=== PATIENT | female | born 1960 | race American Indian/Alaskan Native ===

== ENCOUNTER 2017-09-14 20:55 | Emergency (ER) | payer MEDICARE ==
[2017-09-14 22:06] LABS: Basophils % (Auto) 0.3 % (0.0-1.8); Eosinophils % (Auto) 0.6 % (0.0-4.3); Hematocrit 41.2 % (30.3-42.9); Hemoglobin 13.6 gm/dl (10.1-14.3); Lymphocytes # (Auto) 1.2 K/mm3 (1.2-5.4); Lymphocytes % (Auto) 21.4 % (13.4-35.0); Mean Corpuscular HGB Conc 33 % (30-34); Mean Corpuscular Hemoglobin 29 pg (28-32); Mean Corpuscular Volume 88 fl (79-97); Monocytes # (Auto) 0.5 K/mm3 (0.0-0.8); Monocytes % (Auto) 8.6 % (0.0-7.3); Platelet Count 170 K/mm3 (140-440); Red Blood Count 4.71 M/mm3 (3.65-5.03); Red Cell Distribution Width 13.9 % (13.2-15.2)
[2017-09-14 22:23] LABS: Alanine Aminotransferase 19 units/L (7-56); Albumin 3.9 g/dL (3.9-5); BUN/Creatinine Ratio 27; Blood Urea Nitrogen 19 mg/dL (7-17); Calcium 9.2 mg/dL (8.4-10.2); Hemolysis Index 5; Lipase 13 units/L (13-60)
[2017-09-14 22:24] LABS: Bacteria,Urine 1+ /HPF (Negative); Bilirubin,Urine NEG (Negative); Blood,Urine NEG (Negative); Color,Urine Yellow (Yellow); Mucus,Urine 3+ /HPF; Urobilinogen,Urine < 2.0 mg/dL (<2.0)
[2017-09-14] MEDS ORDERED: NACL 0.9% 1000 ML 1,000 ML IV ONE (22:34)
[2017-09-14] MEDS ORDERED: ZOFRAN IV ONE (22:34)
[2017-09-14] MEDS ORDERED: cefTRIAXone 1 GM in NACL 0.9% 20 ML IV ONE (22:34)
--- NOTE | 2017-09-14 23:02 | Emergency Department Report ---
HPI - General Chief Complaint: Nausea/Vomiting/Diarrhea Time Seen by Provider: 09/14/17 22:14 - HPI HPI: 57-year-old female presents to the emergency department from [facility] with complaint of a few days of nausea, vomiting, diarrhea, abdominal discomfort. She has lost about 6 or 7 pounds in the past few days. She has a past medical history of asthma, previous cervical cancer, previous C. difficile. She has a psychiatric history of anxiety, depression, schizoaffective disorder and is currently a 1013 at [facility] after what appears to be some type of previous psychosis. Unknown if the patient received any type of treatment prior to presentation. She denies any fever, chest pain, shortness of breath, back pain, vaginal bleeding or discharge. ED Past Medical Hx - Past Medical History Previous Medical History?: Yes Hx of Cancer: Yes (cervical) Hx Psychiatric Treatment: Yes (anxiety and depression Schizo-affective) Hx Asthma: Yes Additional medical history: cdiff. hypohlycemia. rheumatic fever - Surgical History Past Surgical History?: Yes Hx Cholecystectomy: Yes Additional Surgical History: tonsil. cervical cancer surgery - Social History Smoking Status: Former Smoker Substance Use Type: None - Medications Home Medications: Home Medications Medication Instructions Recorded Confirmed Last Taken Type Nitrofurantoin Monohyd/M-Cryst 100 mg PO BID #14 capsule 09/15/17 Unknown Rx [Macrobid 100 mg Capsule] Ondansetron [Zofran Odt] 4 mg PO Q8H PRN #10 tab.rapdis 09/15/17 Unknown Rx ED Review of Systems ROS: Stated complaint: N/V/D Other details as noted in HPI Comment: All other systems reviewed and negative Constitutional: denies: chills, fever Eyes: denies: eye pain, eye discharge, vision change ENT: denies: ear pain, throat pain Respiratory: denies: cough, shortness of breath, wheezing Cardiovascular: denies: chest pain, palpitations Gastrointestinal: abdominal pain, nausea, vomiting, diarrhea Genitourinary: denies: hematuria, discharge Musculoskeletal: denies: back pain, joint swelling, arthralgia Skin: denies: rash, lesions Neurological: denies: headache, weakness, paresthesias Physical Exam - Physical Exam Vital Signs: Vital Signs 09/14/17 09/14/17 21:26 22:01 Temperature 98.0 F 98 F Pulse Rate 75 74 Respiratory 18 18 Rate Blood Pressure 131/77 132/62 [Right] O2 Sat by Pulse 99 98 Oximetry Physical Exam: GENERAL: The patient is well-developed well-nourished. HENT: Normocephalic. Atraumatic. Patient has moist mucous membranes. EYES: Extraocular motions are intact. Pupils equal reactive to light bilaterally. NECK: Supple. Trachea is midline. CHEST/LUNGS: Clear to auscultation. There is no respiratory distress noted. HEART/CARDIOVASCULAR: Regular. There is no tachycardia. There is no murmur. ABDOMEN: Abdomen is soft. Generalized tenderness to palpation. No guarding. Patient has normal bowel sounds. There is no abdominal distention. SKIN: Skin is warm and dry. NEURO: The patient is awake, alert, and oriented. The patient is cooperative. The patient has no focal neurologic deficits. The patient has normal speech. MUSCULOSKELETAL: There is no tenderness or deformity. There is no evidence of acute injury. ED Course Vital Signs 09/14/17 09/14/17 21:26 22:01 Temperature 98.0 F 98 F Pulse Rate 75 74 Respiratory 18 18 Rate Blood Pressure 131/77 132/62 [Right] O2 Sat by Pulse 99 98 Oximetry ED Medical Decision Making - Lab Data Result diagrams: 09/14/17 21:55 09/14/17 21:55 - Radiology Data Radiology results: report reviewed, image reviewed interpreted by me: Abdominal x-ray shows nonspecific nonobstructive bowel gas. PROCEDURE: CT ABDOMEN PELVIS W CON TECHNIQUE: Computerized axial tomography of the abdomen and pelvis was performed after the IV injection of iodinated nonionic contrast. HISTORY: Abd pain COMPARISON: No prior studies are available for comparison. FINDINGS: Visualized lower thorax: No significant abnormality. Liver: Normal size and attenuation. Spleen: Normal size and attenuation. Gallbladder and biliary system: Normal. Pancreas: Normal. Adrenals: Normal. Kidneys: Both kidneys have normal size. No hydronephrosis. There is a 1 centimeter renal cortical cyst lateral right renal cortex. No calculi are noted. GI tract: The stomach is normal. The small bowel has a normal caliber without obstruction. The cecum and colon are normal. The appendix is not clearly visualized separate from the remainder the bowel.. Lymph nodes and mesentery: Normal. Vasculature: Normal. Bladder: Normal. Reproductive organs: No pelvic masses. Peritoneum: Minimal fluid lower pelvis. Musculoskeletal structures: No significant abnormality. Other: None. IMPRESSION: There is no evidence of intestinal or urinary tract obstruction. No ileus or enteritis. The appendix is not clearly visualized on today's study. No inflammatory change in the right lower quadrant. Minimal fluid identified in the lower pelvis. No pelvic masses Transcribed By: [facility] Dictated By: ABBEY GRIMM MD Electronically Authenticated By: ABBEY GRIMM MD Signed Date/Time: 09/15/17 0131 - Medical Decision Making The patient was sent from her psychiatric facility with complaints of nausea, vomiting, diarrhea. The patient said that she was having abdominal cramping but was mildly tender throughout the generalized abdomen. Labs are mostly unremarkable. Normal bili, LFTs and lipase. No leukocytosis. However urinalysis does show a urinary tract infection and some small amount of ketones concerning for dehydration. She was given IV fluid, Zofran. CT scan of the abdomen and pelvis does not show any acute process in the abdomen or pelvis. The patient was given a snack tray and ate some food and drink some fluid and was able to do so without any nausea, vomiting or any abdominal discomfort. She appears safe for discharge back to the psychiatric facility. Vital signs stable. She has been encouraged to follow up with a primary care physician or to return to the emergency Department with any worsening of her symptoms. - Differential Diagnosis gastroenteritis, food poisoning, gastritis, diverticulitis, bowel obstructi Critical Care Time: No Critical care attestation.: If time is entered above; I have spent that time in minutes in the direct care of this critically ill patient, excluding procedure time. ED Disposition Clinical Impression: Nausea & vomiting Qualifiers: Vomiting type: unspecified Vomiting Intractability: non-intractable Qualified Code(s): R11.2 - Nausea with vomiting, unspecified Diarrhea Qualifiers: Diarrhea type: unspecified type Qualified Code(s): R19.7 - Diarrhea, unspecified Abdominal pain Qualifiers: Abdominal location: generalized Qualified Code(s): R10.84 - Generalized abdominal pain UTI (urinary tract infection) Qualifiers: Urinary tract infection type: acute cystitis Hematuria presence: without hematuria Qualified Code(s): N30.00 - Acute cystitis without hematuria Disposition: DC/TX-65 PSY HOSP/PSY UNIT Is pt being admited?: No Condition: Stable Instructions: Dehydration (ED), Acute Nausea and Vomiting (ED), Acute Diarrhea (ED), Abdominal Pain (ED) Additional Instructions: Please follow up with a primary care physician as soon as you are able to do so. Return to the emergency Department with any worsening of your symptoms or any acute distress. Increase your oral rehydration. Prescriptions: Nitrofurantoin Monohyd/M-Cryst [Macrobid 100 mg Capsule] 100 mg PO BID #14 capsule Ondansetron [Zofran Odt] 4 mg PO Q8H PRN #10 tab.rapdis PRN Reason: Nausea Referrals: VANESA CAREY MD [Primary Care Provider] - 3-5 Days Time of Disposition: 03:19
--- NOTE | 2017-09-15 00:17 | XRay Report ---
FINAL REPORT PROCEDURE: XR ABDOMEN 2V TECHNIQUE: Abdominal series, including supine and upright AP views. HISTORY: Abd pain COMPARISON: No prior studies are available for comparison. FINDINGS: Bowel gas pattern:Nonobstructive . Masses or calcifications:None . Bony structures:No significant abnormality . Pneumoperitoneum:None . Other:No significant findings . IMPRESSION: No acute abnormality.
[2017-09-15] MEDS ORDERED: NACL ONE (00:49)
--- NOTE | 2017-09-15 01:36 | Cat Scan Report ---
FINAL REPORT PROCEDURE: CT ABDOMEN PELVIS W CON TECHNIQUE: Computerized axial tomography of the abdomen and pelvis was performed after the IV injection of iodinated nonionic contrast. HISTORY: Abd pain COMPARISON: No prior studies are available for comparison. FINDINGS: Visualized lower thorax: No significant abnormality. Liver: Normal size and attenuation. Spleen: Normal size and attenuation. Gallbladder and biliary system: Normal. Pancreas: Normal. Adrenals: Normal. Kidneys: Both kidneys have normal size. No hydronephrosis. There is a 1 centimeter renal cortical cyst lateral right renal cortex. No calculi are noted. GI tract: The stomach is normal. The small bowel has a normal caliber without obstruction. The cecum and colon are normal. The appendix is not clearly visualized separate from the remainder the bowel.. Lymph nodes and mesentery: Normal. Vasculature: Normal. Bladder: Normal. Reproductive organs: No pelvic masses. Peritoneum: Minimal fluid lower pelvis. Musculoskeletal structures: No significant abnormality. Other: None. IMPRESSION: There is no evidence of intestinal or urinary tract obstruction. No ileus or enteritis. The appendix is not clearly visualized on today's study. No inflammatory change in the right lower quadrant. Minimal fluid identified in the lower pelvis. No pelvic masses
[2017-09-15 02:45] VITALS: BP 115/67
== END 2017-09-15 08:11 ==
LOC: ED 20:55
DX: N39.0 Urinary tract infection, site not specified (principal); R11.2 Nausea with vomiting, unspecified; F41.9 Anxiety disorder, unspecified; F32.9 Major depressive disorder, single episode, unspecified; F25.9 Schizoaffective disorder, unspecified; J45.909 Unspecified asthma, uncomplicated; Z90.49 Acquired absence of other specified parts of digestive tract; Z87.891 Personal history of nicotine dependence
CPT/HCPCS: 36415; 74019; 74177; 80053; 81001; 83690; 85025; 96361; 96374; 96375; 99285; J0696; J2405; J7030; Q9966

== ENCOUNTER 2017-10-18 12:35 | Emergency (ER) | payer MEDICARE ==
--- NOTE | 2017-10-18 16:02 | Emergency Department Report ---
ED N/V/D HPI - General Chief complaint: Nausea/Vomiting/Diarrhea Stated complaint: DIARRHEA Time Seen by Provider: 10/18/17 15:51 Source: patient Mode of arrival: Ambulatory Limitations: No Limitations - History of Present Illness Initial comments: Patient is a 57-year-old female past history of bipolar and schizoaffective disorder who is coming in with diarrhea for the past 3 days. Patient states every time she eats she has diarrhea. Patient Jeana spastic colon but states that anytime she seen a doctor in the past she has not been diagnosed with anything in particular that will cause her diarrhea. Patient states she's had over 30 episodes similar to this in the past with no formal diagnosis. Patient seemed very angry during the history of physical and used yelling I don't know even before I'm able to ask several questions. Patient states she has generalized abdominal discomfort that is crampy in nature. Denies any fevers chills vomiting at this time. Patient states that "my asses percolating" MD complaint: nausea, diarrhea, abdominal pain - Related Data Previous Rx's Medication Instructions Recorded Last Taken Type Nitrofurantoin Monohyd/M-Cryst 100 mg PO BID #14 capsule 09/15/17 Unknown Rx [Macrobid 100 mg Capsule] Ondansetron [Zofran Odt] 4 mg PO Q8H PRN #10 tab.rapdis 09/15/17 Unknown Rx Dicyclomine [Bentyl] 40 mg PO QID #20 tablet 10/18/17 Unknown Rx Diphenoxylate HCl/Atropine 1 each PO BID PRN #12 tablet 10/18/17 Unknown Rx [Lomotil 2.5-0.025 mg Tablet] Ondansetron [Zofran Odt] 4 mg PO Q8HR #10 tab.rapdis 10/18/17 Unknown Rx Allergies Allergy/AdvReac Type Severity Reaction Status Date / Time aripiprazole [From Abilify] Allergy Unknown Verified 09/14/17 21:26 paliperidone [From Invega] Allergy Unknown Verified 09/14/17 21:26 ED Review of Systems ROS: Stated complaint: DIARRHEA Other details as noted in HPI Comment: All other systems reviewed and negative ED Past Medical Hx - Past Medical History Hx Psychiatric Treatment: Yes (anxiety and depression Schizo-affective) Hx Asthma: Yes Additional medical history: cdiff. hypohlycemia. rheumatic fever - Surgical History Hx Cholecystectomy: Yes Additional Surgical History: tonsil. cervical cancer surgery - Social History Smoking Status: Former Smoker Substance Use Type: None - Medications Home Medications: Home Medications Medication Instructions Recorded Confirmed Last Taken Type Nitrofurantoin Monohyd/M-Cryst 100 mg PO BID #14 capsule 09/15/17 Unknown Rx [Macrobid 100 mg Capsule] Ondansetron [Zofran Odt] 4 mg PO Q8H PRN #10 tab.rapdis 09/15/17 Unknown Rx Dicyclomine [Bentyl] 40 mg PO QID #20 tablet 10/18/17 Unknown Rx Diphenoxylate HCl/Atropine 1 each PO BID PRN #12 tablet 10/18/17 Unknown Rx [Lomotil 2.5-0.025 mg Tablet] Ondansetron [Zofran Odt] 4 mg PO Q8HR #10 tab.rapdis 10/18/17 Unknown Rx ED Physical Exam - General Limitations: No Limitations General appearance: alert, in no apparent distress - Head Head exam: Present: atraumatic, normocephalic - Eye Eye exam: Present: normal appearance - ENT ENT exam: Present: mucous membranes moist - Neck Neck exam: Present: normal inspection - Respiratory Respiratory exam: Present: normal lung sounds bilaterally. Absent: respiratory distress, wheezes, rales, rhonchi - Cardiovascular Cardiovascular Exam: Present: regular rate, normal rhythm. Absent: systolic murmur, diastolic murmur, rubs, gallop - GI/Abdominal GI/Abdominal exam: Present: soft, tenderness (patient stated that she was hurting before I was actually able to touch her abdomen. Patient states that she is diffusely tender. There is no rebound or guarding. Belly is soft), normal bowel sounds. Absent: distended, guarding, rebound - Extremities Exam Extremities exam: Present: normal inspection - Back Exam Back exam: Present: normal inspection - Neurological Exam Neurological exam: Present: alert, oriented X3 - Psychiatric Psychiatric exam: Present: normal affect, normal mood - Skin Skin exam: Present: warm, dry, intact, normal color. Absent: rash ED Course Vital Signs 10/18/17 12:51 Temperature 98.3 F Pulse Rate 61 Respiratory 16 Rate Blood Pressure 100/70 O2 Sat by Pulse 99 Oximetry ED Medical Decision Making - Medical Decision Making Patient states that she has had over 30 episodes of similar to this. Patient states she's never been to this hospital before normally gets her care and other cities in [place]. Patient listed at least 5 or the hospitals that she is going to for the same thing. Patient states normally she gets a white liquid diet pills with her diarrhea. Patient was started on Lomotil as well as Bentyl patient be discharged home. I do not feel as though imaging studies are necessary at this time given the chronic nature of the patient's complaint. Patient although somewhat angry in her delivery does state that she seen a mushroom sorter grader several times and has not been diagnosed with anything. Patient states she's had a colonoscopy within the last year. Patient is afebrile vital signs are stable. Cause of the risk of C. difficile I will also place the patient on Flagyl as well. Critical care attestation.: If time is entered above; I have spent that time in minutes in the direct care of this critically ill patient, excluding procedure time. ED Disposition Clinical Impression: Enteritis Disposition: DC-01 TO HOME OR SELFCARE Is pt being admited?: No Does the pt Need Aspirin: No Condition: Stable Instructions: Acute Diarrhea (ED) Prescriptions: Dicyclomine [Bentyl] 40 mg PO QID #20 tablet Diphenoxylate HCl/Atropine [Lomotil 2.5-0.025 mg Tablet] 1 each PO BID PRN #12 tablet PRN Reason: Diarrhea Ondansetron [Zofran Odt] 4 mg PO Q8HR #10 tab.sadie
[2017-10-18 17:02] VITALS: BP 102/74
== END 2017-10-18 17:04 | disposition home or self-care (01) ==
LOC: ED 12:35
DX: K52.9 Noninfective gastroenteritis and colitis, unspecified (principal); F41.9 Anxiety disorder, unspecified; F32.9 Major depressive disorder, single episode, unspecified; F25.9 Schizoaffective disorder, unspecified; J45.909 Unspecified asthma, uncomplicated; Z90.49 Acquired absence of other specified parts of digestive tract; Z90.89 Acquired absence of other organs; Z88.8 Allergy status to other drugs, medicaments and biological substances; Z87.891 Personal history of nicotine dependence
CPT/HCPCS: 99282

== ENCOUNTER 2017-11-02 11:34 | Emergency (ER) | payer MEDICARE ==
[2017-11-02 13:16] LABS: Basophils % (Auto) 0.2 % (0.0-1.8); Eosinophils % (Auto) 0.4 % (0.0-4.3); Hematocrit 39.3 % (30.3-42.9); Hemoglobin 13.3 gm/dl (10.1-14.3); Lymphocytes # (Auto) 0.6 K/mm3 (1.2-5.4); Mean Corpuscular HGB Conc 34 % (30-34); Mean Corpuscular Hemoglobin 30 pg (28-32); Mean Corpuscular Volume 89 fl (79-97); Monocytes # (Auto) 0.2 K/mm3 (0.0-0.8); Monocytes % (Auto) 7.4 % (0.0-7.3); Platelet Count 122 K/mm3 (140-440); Red Blood Count 4.41 M/mm3 (3.65-5.03); Red Cell Distribution Width 16.5 % (13.2-15.2)
[2017-11-02 13:28] LABS: Bilirubin,Urine NEG (Negative); Blood,Urine NEG (Negative); Color,Urine Amber (Yellow); Hyaline Casts,Urine 9 /LPF; Mucus,Urine 3+ /HPF; Urobilinogen,Urine < 2.0 mg/dL (<2.0)
[2017-11-02 13:34] LABS: BUN/Creatinine Ratio 24; Blood Urea Nitrogen 17 mg/dL (7-17); Calcium 9.6 mg/dL (8.4-10.2); Hemolysis Index 14
[2017-11-02 13:36] LABS: Amphetamine Screen,Urine PRESUMPTIVE NEGATIVE; Benzodiazepines Screen,Urine PRESUMPTIVE NEGATIVE; Cannabinoid Screen,Urine PRESUMPTIVE NEGATIVE; Cocaine Screen,Urine PRESUMPTIVE NEGATIVE; Methadone Screen,Urine PRESUMPTIVE NEGATIVE; Opiate Screen,Urine PRESUMPTIVE NEGATIVE
--- NOTE | 2017-11-02 15:30 | Emergency Department Report ---
ED Medical Clearance HPI - General Chief complaint: Medical Clearance Stated complaint: MEDICAL CLEARANCE Source: patient, family Mode of arrival: Ambulatory - History of Present Illness Initial comments: 57-year-old woman with bipolar disorder and schizoaffective disorder brought in by mother for medical clearance in order to return to her partial hospitalization program, from which she was discharged a week ago for persistent diarrhea. Patient has had history of C. difficile enterocolitis one to 2 years ago, confirm diagnosis and cleared with treatment with vancomycin at that time. She has been cared for at the [facility], and developed diarrheal illness at the end of August, along with several other residents, and was ultimately discharged because of the diarrhea and concern for passing of infectious agents. Mother has been treating her at home, reporting patient has had a diagnosis of irritable bowel syndrome, and diarrhea has been fairly persistent, although low-grade, and not typical of C. difficile enterocolitis. There is been no definitive diagnostic testing for C. difficile enteritis scented time, but mother reports also that patient's symptoms have cleared up and she has been free of diarrhea for the past 6-7 days. She is now eating normally, tolerating solid foods, and had a solid bowel movement yesterday. Patient has always been thin, but mother reports that she has had decreased nutrition since that time, but has been eating fairly well, and is tolerating liquids, although she does not drink as much she has been recommended to. Reason for Medical Clearance: other (infectious diarrhea) Alledged Intoxication: No Compliant with Home Medications: Yes Traumatic Symptoms: denies traumatic injury Associated Symptoms: denies: chest pain, shortness of breath, palpitations, diaphoresis, cough, fever/chills, malaise, syncope Treatments Prior to Arrival: other (antidiarrheal medicine, typically Lomotil) Home medications: Previous Rx's Medication Instructions Recorded Last Taken Type Nitrofurantoin Monohyd/M-Cryst 100 mg PO BID #14 capsule 09/15/17 Unknown Rx [Macrobid 100 mg Capsule] Ondansetron [Zofran Odt] 4 mg PO Q8H PRN #10 tab.rapdis 09/15/17 Unknown Rx Dicyclomine [Bentyl] 40 mg PO QID #20 tablet 10/18/17 Unknown Rx Diphenoxylate HCl/Atropine 1 each PO BID PRN #12 tablet 10/18/17 Unknown Rx [Lomotil 2.5-0.025 mg Tablet] Ondansetron [Zofran Odt] 4 mg PO Q8HR #10 tab.rapdis 10/18/17 Unknown Rx Allergies/Adverse reactions: Allergies Allergy/AdvReac Type Severity Reaction Status Date / Time aripiprazole [From Abilify] Allergy Unknown Verified 09/14/17 21:26 paliperidone [From Invega] Allergy Unknown Verified 09/14/17 21:26 ED Review of Systems ROS: Stated complaint: MEDICAL CLEARANCE Other details as noted in HPI Constitutional: denies: chills, fever Eyes: denies: eye pain, eye discharge, vision change ENT: denies: ear pain, throat pain Respiratory: denies: cough, shortness of breath, wheezing Cardiovascular: denies: chest pain, palpitations Endocrine: no symptoms reported Gastrointestinal: abdominal pain (recurrent crampy abdominal pain, controlled with Bentyl), diarrhea. denies: melena, hematochezia Musculoskeletal: denies: back pain, joint swelling, arthralgia Neurological: denies: headache, weakness, paresthesias Psychiatric: depression Hematological/Lymphatic: denies: easy bleeding, easy bruising ED Past Medical Hx - Past Medical History Hx Psychiatric Treatment: Yes (anxiety and depression Schizo-affective) Hx Asthma: Yes Additional medical history: cdiff. hypohlycemia. rheumatic fever. Irritable bowel syndrome - Surgical History Hx Cholecystectomy: Yes Additional Surgical History: tonsil. cervical cancer surgery - Social History Smoking Status: Never Smoker Substance Use Type: None - Medications Home Medications: Home Medications Medication Instructions Recorded Confirmed Last Taken Type Nitrofurantoin Monohyd/M-Cryst 100 mg PO BID #14 capsule 09/15/17 Unknown Rx [Macrobid 100 mg Capsule] Ondansetron [Zofran Odt] 4 mg PO Q8H PRN #10 tab.rapdis 09/15/17 Unknown Rx Dicyclomine [Bentyl] 40 mg PO QID #20 tablet 10/18/17 Unknown Rx Diphenoxylate HCl/Atropine 1 each PO BID PRN #12 tablet 10/18/17 Unknown Rx [Lomotil 2.5-0.025 mg Tablet] Ondansetron [Zofran Odt] 4 mg PO Q8HR #10 tab.rapdis 04/30/18 Unknown Rx ED Physical Exam - General Limitations: No Limitations General appearance: alert, other (thin, somewhat poorly malnourished, chronic) - Head Head exam: Present: atraumatic, normocephalic - Eye Eye exam: Present: PERRL - ENT ENT exam: Present: normal exam - Neck Neck exam: Present: normal inspection - Respiratory Respiratory exam: Present: normal lung sounds bilaterally. Absent: wheezes, rales, rhonchi - Cardiovascular Cardiovascular Exam: Present: regular rate, normal heart sounds. Absent: systolic murmur, diastolic murmur - GI/Abdominal GI/Abdominal exam: Present: soft, tenderness (mild tenderness diffusely to palpation, no rebound or guarding), normal bowel sounds. Absent: guarding, rebound - Rectal Rectal exam: Present: deferred - Extremities Exam Extremities exam: Present: full ROM, normal capillary refill, other (thinly muscled, little subcutaneous fat, no bruises, no ecchymoses). Absent: tenderness - Back Exam Back exam: Present: normal inspection. Absent: tenderness, CVA tenderness (R), CVA tenderness (L) - Neurological Exam Neurological exam: Present: alert, oriented X3, CN II-XII intact. Absent: motor sensory deficit - Psychiatric Psychiatric exam: Present: flat affect - Skin Skin exam: Present: warm, dry, other (poor turgor, little subcutaneous fat, minimally doughy) ED Course Vital Signs 11/02/17 11:43 Temperature 97.4 F L Pulse Rate 64 Respiratory 16 Rate Blood Pressure 94/59 O2 Sat by Pulse 98 Oximetry ED Medical Decision Making - Lab Data Result diagrams: 11/02/17 12:37 11/02/17 12:37 - Medical Decision Making This patient is sent for clearance to return to group facility after being discharged for persistent diarrhea and concerns for passing of infectious diarrheal agents. Diarrhea has subsided, patient is tolerating foods well, had a normal bowel movement yesterday, is somewhat malnourished, but this appears to be chronic, and she is otherwise physiologically stable. Laboratory evaluation shows no hematologic or metabolic abnormalities, and patient showed no evidence of acute diarrheal illness or nausea or vomiting during the course of her visit here. I find that she is medically stable and medically cleared for return to her group facility. ED Disposition Clinical Impression: Encounter for annual general medical examination without abnormal findings in adult Schizoaffective disorder Qualifiers: Schizoaffective disorder type: unspecified Qualified Code(s): F25.9 - Schizoaffective disorder, unspecified Disposition: DC-01 TO HOME OR SELFCARE Is pt being admited?: No Does the pt Need Aspirin: No Condition: Stable Referrals: PRIMARY CARE,MD [Primary Care Provider] - 3-5 Days Forms: Work/School Release Form(ED) Time of Disposition: 15:38
[2017-11-02 15:54] VITALS: BP 95/59
== END 2017-11-02 15:54 | disposition home or self-care (01) ==
LOC: ED 11:34
DX: Z00.00 Encounter for general adult medical examination without abnormal findings (principal); F25.9 Schizoaffective disorder, unspecified; F41.9 Anxiety disorder, unspecified; J45.909 Unspecified asthma, uncomplicated; Z90.49 Acquired absence of other specified parts of digestive tract
CPT/HCPCS: 36415; 80048; 80307; 81001; 85025; 99283; G0480; 80320

== ENCOUNTER 2018-11-15 19:09 | Emergency (ER) | payer MEDICARE ==
[2018-11-15 19:41] VITALS: BP 108/74
--- NOTE | 2018-11-15 19:41 | Emergency Department Report ---
Chief Complaint: Nausea/Vomiting/Diarrhea Stated Complaint: NOT EATING/SHAKY Time Seen by Provider: 11/15/18 19:36 - HPI History of Present Illness: This is a 58 y.o. F. that presents to the ER with nausea, diarrhea, and tremors for 3-4 days. PMH Schizophrenia, anxiety, depression, IBS, hypoglycemia. Patient refuse to eat because she is afraid of having bowel movements. - Exam Vital Signs: Vital Signs 11/15/18 19:36 Temperature 98.5 F Pulse Rate 113 H Respiratory 18 Rate Blood Pressure 108/74 O2 Sat by Pulse 96 Oximetry MSE screening note: Focused history and physical exam performed. Due to findings the following was ordered: This initial assessment/diagnostic orders/clinical plan/treatment(s) is/are subject to change based on patient's health status, clinical progression and re- assessment by fellow clinical providers in the ED. Further treatment and workup at subsequent clinical providers discretion. Patient/guardians urged not to elope from the ED as their condition may be serious if not clinically assessed and managed. Initial orders include: 1- Patient sent to [facility] for further evaluation and treatment 2- Labs ED Disposition for MSE Condition: Stable
[2018-11-15 20:04] LABS: Basophils % (Auto) 0.3 % (0.0-1.8); Eosinophils % (Auto) 0.3 % (0.0-4.3); Hemoglobin 12.9 gm/dl (10.1-14.3); Lymphocytes # (Auto) 0.5 K/mm3 (1.2-5.4); Mean Corpuscular HGB Conc 34 % (30-34); Mean Corpuscular Volume 93 fl (79-97); Monocytes # (Auto) 0.3 K/mm3 (0.0-0.8); Monocytes % (Auto) 8.7 % (0.0-7.3); Red Blood Count 4.07 M/mm3 (3.65-5.03); Red Cell Distribution Width 16.8 % (13.2-15.2)
[2018-11-15 20:05] LABS: Platelet Count 79 K/mm3 (140-440)
[2018-11-15 20:19] LABS: Alanine Aminotransferase 27 units/L (7-56); Albumin 3.7 g/dL (3.9-5); BUN/Creatinine Ratio 21; Blood Urea Nitrogen 23 mg/dL (7-17); Calcium 9.4 mg/dL (8.4-10.2); Hemolysis Index 8
--- NOTE | 2018-11-16 01:49 | Emergency Department Report ---
- General Chief complaint: Nausea/Vomiting/Diarrhea Stated complaint: NOT EATING/SHAKY Time Seen by Provider: 11/15/18 19:36 Source: patient, family Mode of arrival: Wheelchair Limitations: Physical Limitation - History of Present Illness Initial comments: Mrs. Laureano is a 58 yo female with hx of asthma, anxiety , depression, bipolar disorder, schizoaffective disorder, IBS who presents with poor appetite. Her caregiver has been away for the past 3 weeks. She returned to see Nely with weight loss. She just did not see to be herself. Nely denies pain or discomfort. She states that she is willing to eat. MD Complaint: generalized weakness -: week(s) (1) Location: generalized Severity: moderate Consistency: constant Improves with: none Worsens with: none - Related Data Previous Rx's Medication Instructions Recorded Last Taken Type Nitrofurantoin Monohyd/M-Cryst 100 mg PO BID #14 capsule 09/15/17 Unknown Rx [Macrobid 100 mg Capsule] Ondansetron [Zofran Odt] 4 mg PO Q8H PRN #10 tab.rapdis 09/15/17 Unknown Rx Dicyclomine [Bentyl] 40 mg PO QID #20 tablet 10/18/17 Unknown Rx Diphenoxylate HCl/Atropine 1 each PO BID PRN #12 tablet 10/18/17 Unknown Rx [Lomotil 2.5-0.025 mg Tablet] Ondansetron [Zofran Odt] 4 mg PO Q8HR #10 tab.rapdis 10/18/17 Unknown Rx Allergies Allergy/AdvReac Type Severity Reaction Status Date / Time aripiprazole [From Abilify] Allergy Unknown Verified 09/14/17 21:26 paliperidone [From Invega] Allergy Unknown Verified 09/14/17 21:26 ED Review of Systems ROS: Stated complaint: NOT EATING/SHAKY Other details as noted in HPI Comment: All other systems reviewed and negative Constitutional: malaise Gastrointestinal: diarrhea ED Past Medical Hx - Past Medical History Previous Medical History?: Yes Hx Psychiatric Treatment: Yes (anxiety and depression Schizo-affective, bipolar) Hx Asthma: Yes Additional medical history: cdiff. hypoglycemia. rheumatic fever. Irritable bowel syndrome - Surgical History Past Surgical History?: Yes Hx Cholecystectomy: Yes Additional Surgical History: tonsil. cervical cancer surgery - Social History Smoking Status: Former Smoker Substance Use Type: None - Medications Home Medications: Home Medications Medication Instructions Recorded Confirmed Last Taken Type Nitrofurantoin Monohyd/M-Cryst 100 mg PO BID #14 capsule 09/15/17 Unknown Rx [Macrobid 100 mg Capsule] Ondansetron [Zofran Odt] 4 mg PO Q8H PRN #10 tab.rapdis 09/15/17 Unknown Rx Dicyclomine [Bentyl] 40 mg PO QID #20 tablet 10/18/17 Unknown Rx Diphenoxylate HCl/Atropine 1 each PO BID PRN #12 tablet 10/18/17 Unknown Rx [Lomotil 2.5-0.025 mg Tablet] Ondansetron [Zofran Odt] 4 mg PO Q8HR #10 tab.rapdis 10/18/17 Unknown Rx ED Physical Exam - General Limitations: Physical Limitation General appearance: alert, in no apparent distress - Head Head exam: Present: atraumatic, normocephalic - Eye Eye exam: Present: normal appearance. Absent: conjunctival injection - ENT ENT exam: Present: mucous membranes moist - Neck Neck exam: Present: normal inspection - Respiratory Respiratory exam: Present: normal lung sounds bilaterally. Absent: respiratory distress, wheezes, rales, rhonchi - Cardiovascular Cardiovascular Exam: Present: regular rate, normal rhythm, normal heart sounds. Absent: systolic murmur, diastolic murmur, rubs, gallop - GI/Abdominal GI/Abdominal exam: Present: soft, normal bowel sounds. Absent: distended, tenderness, guarding, rebound - Extremities Exam Extremities exam: Present: normal inspection - Back Exam Back exam: Present: normal inspection - Neurological Exam Neurological exam: Present: alert, oriented X3 - Psychiatric Psychiatric exam: Present: depressed, flat affect - Skin Skin exam: Present: warm, dry, intact, pallor. Absent: rash ED Course Vital Signs 11/15/18 11/15/18 19:16 19:36 Temperature 98.5 F 98.5 F Pulse Rate 115 H 113 H Respiratory 18 18 Rate Blood Pressure 108/74 108/74 O2 Sat by Pulse 95 96 Oximetry ED Medical Decision Making - Lab Data Result diagrams: 11/15/18 19:48 11/15/18 19:48 Laboratory Results - last 24 hr 11/15/18 11/15/18 19:48 19:48 WBC 3.0 L RBC 4.07 Hgb 12.9 Hct 38.0 MCV 93 MCH 32 MCHC 34 RDW 16.8 H Plt Count 79 L Lymph % (Auto) 17.0 [place] % (Auto) 8.7 H Eos % (Auto) 0.3 Baso % (Auto) 0.3 Lymph # 0.5 L [place] # 0.3 Eos # 0.0 Baso # 0.0 Seg Neutrophils % 73.7 H Seg Neutrophils # 2.2 Sodium 138 Potassium 4.7 Chloride 102.0 Carbon Dioxide 20 L Anion Gap 21 BUN 23 H Creatinine 1.1 Estimated GFR > 60 BUN/Creatinine Ratio 21 Glucose 93 Calcium 9.4 Total Bilirubin 0.40 AST 29 ALT 27 Alkaline Phosphatase 40 Total Protein 6.7 Albumin 3.7 L Albumin/Globulin Ratio 1.2 - Medical Decision Making Mrs. Laureano presents with poor appetite and generalized weakness. I recommende d supervised eating which the caregiver is willing and able to perform. PCP f/u scheduled for next week. Critical care attestation.: If time is entered above; I have spent that time in minutes in the direct care of this critically ill patient, excluding procedure time. ED Disposition Clinical Impression: Generalized weakness, Poor appetite Disposition: DC-01 TO HOME OR SELFCARE Is pt being admited?: No Does the pt Need Aspirin: No Condition: Stable Instructions: Weakness (ED) Referrals: PRIMARY CARE, [Referring] - GRICELDA
== END 2018-11-16 02:02 | disposition home or self-care (01) ==
LOC: ED 19:09
DX: R63.0 Anorexia (principal); J45.909 Unspecified asthma, uncomplicated; F25.9 Schizoaffective disorder, unspecified; F31.9 Bipolar disorder, unspecified; F41.9 Anxiety disorder, unspecified; Z90.49 Acquired absence of other specified parts of digestive tract; Z87.891 Personal history of nicotine dependence; Z88.8 Allergy status to other drugs, medicaments and biological substances
CPT/HCPCS: 36415; 80053; 85025; 99283

== ENCOUNTER 2018-11-17 18:33 | Emergency (ER) | payer MEDICARE ==
--- NOTE | 2018-11-17 18:42 | Emergency Department Report ---
Blank Doc - Documentation Documentation: This is a 58-year-old female that presents with forehead laceration. Denies any LOC. Stated had a syncopal episode. Denies any neck or back pain. Denies other pain or trauma. This initial assessment/diagnostic orders/clinical plan/treatment(s) is/are subject to change based on patient's health status, clinical progression and re- assessment by fellow clinical providers in the ED. Further treatment and workup at subsequent clinical providers discretion. Patient/guardians urged not to elope from the ED as their condition may be serious if not clinically assessed and managed. Initial orders include: 1- Patient sent to [facility] for further evaluation and treatment 2- CT head/facial bones 3- labs 4- EKG
[2018-11-17 19:42] LABS: Basophils % (Auto) 0.3 % (0.0-1.8); Eosinophils % (Auto) 0.3 % (0.0-4.3); Hematocrit 36.2 % (30.3-42.9); Hemoglobin 12.3 gm/dl (10.1-14.3); Lymphocytes # (Auto) 0.5 K/mm3 (1.2-5.4); Lymphocytes % (Auto) 18.6 % (13.4-35.0); Mean Corpuscular HGB Conc 34 % (30-34); Mean Corpuscular Volume 94 fl (79-97); Monocytes # (Auto) 0.2 K/mm3 (0.0-0.8); Monocytes % (Auto) 8.2 % (0.0-7.3); Red Blood Count 3.87 M/mm3 (3.65-5.03); Red Cell Distribution Width 16.8 % (13.2-15.2)
[2018-11-17 19:43] LABS: Platelet Count 82 K/mm3 (140-440)
[2018-11-17 19:52] LABS: INR 0.95 (0.87-1.13)
[2018-11-17 19:53] LABS: Partial Thromboplastin Time 30.9 Sec. (24.2-36.6)
[2018-11-17 20:31] LABS: Creatine Kinase MB 1.2 ng/mL (0.0-4.0)
[2018-11-17 20:32] LABS: Alanine Aminotransferase 26 units/L (7-56); Albumin 3.5 g/dL (3.9-5); BUN/Creatinine Ratio 19; Blood Urea Nitrogen 17 mg/dL (7-17); Calcium 9.3 mg/dL (8.4-10.2); Hemolysis Index 13
[2018-11-17] MEDS ORDERED: NACL 0.9% 1000 ML 1,000 ML IV ONE (21:14)
--- NOTE | 2018-11-17 21:27 | Emergency Department Report ---
ED Fall HPI - General Chief Complaint: Head Injury Stated Complaint: FACE INJURY Time Seen by Provider: 11/17/18 18:40 Source: patient, old records reviewed Mode of arrival: Wheelchair Limitations: No Limitations - History of Present Illness Initial Comments: 58-year-old female with a past medical history of asthma, schizoaffective disorder, bipolar disorder, anxiety, depression, rheumatic fever, previous cervical cancer currently in remission, and irritable bowel syndrome presents to the Hospital complaining of fall injury. Patient states she tripped, lost balance, and fell. She injured the right side of her forehead fell while wearing glasses. She denies LOC. She does complain of headache and some mild neck pain. Patient lives at a personal nursing home and the personal nursing home treating engineer is at the bedside. Apparently patient is not eating or drinking much because she does not want to have diarrhea (due to her IBS) in public. Patient denies nausea, vomiting, or focal weakness. Patient has received a tetanus shot in the last 10 years. The patient was seen here November 15 for generalized weakness and poor appetite. - Related Data Previous Rx's Medication Instructions Recorded Last Taken Type Nitrofurantoin Monohyd/M-Cryst 100 mg PO BID #14 capsule 09/15/17 Unknown Rx [Macrobid 100 mg Capsule] Ondansetron [Zofran Odt] 4 mg PO Q8H PRN #10 tab.rapdis 09/15/17 Unknown Rx Dicyclomine [Bentyl] 40 mg PO QID #20 tablet 10/18/17 Unknown Rx Diphenoxylate HCl/Atropine 1 each PO BID PRN #12 tablet 10/18/17 Unknown Rx [Lomotil 2.5-0.025 mg Tablet] Ondansetron [Zofran Odt] 4 mg PO Q8HR #10 tab.rapdis 10/18/17 Unknown Rx Allergies Allergy/AdvReac Type Severity Reaction Status Date / Time aripiprazole [From Abilify] Allergy Unknown Verified 11/17/18 18:36 paliperidone [From Invega] Allergy Unknown Verified 11/17/18 18:36 ED Review of Systems ROS: Stated complaint: FACE INJURY Other details as noted in HPI Comment: All other systems reviewed and negative ED Past Medical Hx - Past Medical History Hx Psychiatric Treatment: Yes (anxiety and depression Schizo-affective, bipolar) Hx Asthma: Yes Additional medical history: cdiff. hypoglycemia. rheumatic fever. Irritable bowel syndrome - Surgical History Hx Cholecystectomy: Yes Additional Surgical History: tonsil. cervical cancer surgery - Social History Smoking Status: Former Smoker - Medications Home Medications: Home Medications Medication Instructions Recorded Confirmed Last Taken Type Nitrofurantoin Monohyd/M-Cryst 100 mg PO BID #14 capsule 09/15/17 Unknown Rx [Macrobid 100 mg Capsule] Ondansetron [Zofran Odt] 4 mg PO Q8H PRN #10 tab.rapdis 09/15/17 Unknown Rx Dicyclomine [Bentyl] 40 mg PO QID #20 tablet 10/18/17 Unknown Rx Diphenoxylate HCl/Atropine 1 each PO BID PRN #12 tablet 10/18/17 Unknown Rx [Lomotil 2.5-0.025 mg Tablet] Ondansetron [Zofran Odt] 4 mg PO Q8HR #10 tab.rapdis 10/18/17 Unknown Rx ED Physical Exam - General Limitations: No Limitations - Other Other exam information: General: No limitations, patient is alert in no acute distress Head exam: 2 lacerations to forehead and right forehead. 3cm and .5 cm Eyes exam: Normal appearance, pupils equal reactive to light, extraocular movements intact ENT: Moist mucous membrane, normal oropharynx Neck exam: Normal inspection, full range of motion, no meningismus nontender Respiratory exam: Clear to auscultation bilateral, no wheezes, rales, crackles Cardiovascular: Normal rate and rhythm, normal heart sounds Abdomen: Soft, nondistended, and nontender, with normal bowel sounds, no rebound, or guarding Extremity: Full range of motion normal inspection no deformity Back: Normal Inspection, full range of motion, no tenderness Neurologic: Alert, oriented x3, cranial nerves intact, no motor or sensory deficit Psychiatric: normal affect, normal mood Skin: Warm, dry, intact ED Course Vital Signs 11/17/18 11/17/18 11/17/18 18:41 21:00 21:15 Temperature 98 F 97.7 F Pulse Rate 85 66 Respiratory 16 15 Rate Blood Pressure 127/83 Blood Pressure 102/75 127/83 [Right] O2 Sat by Pulse 96 98 97 Oximetry 11/17/18 11/17/18 11/18/18 22:00 23:01 00:00 Temperature Pulse Rate 66 64 69 Respiratory 16 15 16 Rate Blood Pressure 122/78 127/83 122/79 Blood Pressure [Right] O2 Sat by Pulse 97 98 98 Oximetry 11/18/18 11/18/18 00:04 01:00 Temperature Pulse Rate 68 68 Respiratory 15 13 Rate Blood Pressure 122/79 124/79 Blood Pressure [Right] O2 Sat by Pulse 96 99 Oximetry - Reevaluation(s) Reevaluation #1: 11/18/18 01:02 pt feeling better after IVF, Pt did eat in the ed - Laceration /Wound Repair Right Head Wound Location: face Wound Length (cm): 3 (3 and .5cm) Wound's Depth, Shape: linear Wound Explored: clean Irrigated w/ Saline (ccs): 100 Betadine Prep?: Yes Wound Repaired With: Dermabond Sterile Dressing Applied?: Yes ED Medical Decision Making - Lab Data Result diagrams: 11/17/18 19:14 11/17/18 19:14 Lab Results 11/17/18 11/17/18 11/17/18 Range/Units 19:14 19:14 19:14 WBC 2.6 L (4.5-11.0) K/mm3 RBC 3.87 (3.65-5.03) M/mm3 Hgb 12.3 (10.1-14.3) gm/dl Hct 36.2 (30.3-42.9) % MCV 94 (79-97) fl MCH 32 (28-32) pg MCHC 34 (30-34) % RDW 16.8 H (13.2-15.2) % Plt Count 82 L (140-440) K/mm3 Lymph % (Auto) 18.6 (13.4-35.0) % [place] % (Auto) 8.2 H (0.0-7.3) % Eos % (Auto) 0.3 (0.0-4.3) % Baso % (Auto) 0.3 (0.0-1.8) % Lymph # 0.5 L (1.2-5.4) K/mm3 [place] # 0.2 (0.0-0.8) K/mm3 Eos # 0.0 (0.0-0.4) K/mm3 Baso # 0.0 (0.0-0.1) K/mm3 Seg Neutrophils % 72.6 H (40.0-70.0) % Seg Neutrophils # 1.9 (1.8-7.7) K/mm3 PT (12.2-14.9) Sec. INR (0.87-1.13) APTT (24.2-36.6) Sec. Sodium 137 (137-145) mmol/L Potassium 4.3 (3.6-5.0) mmol/L Chloride 103.1 (98-107) mmol/L Carbon Dioxide 20 L (22-30) mmol/L Anion Gap 18 mmol/L BUN 17 (7-17) mg/dL Creatinine 0.9 (0.7-1.2) mg/dL Estimated GFR > 60 ml/min BUN/Creatinine Ratio 19 % Glucose 105 H (65-100) mg/dL Calcium 9.3 (8.4-10.2) mg/dL Total Bilirubin 0.20 (0.1-1.2) mg/dL AST 25 (5-40) units/L ALT 26 (7-56) units/L Alkaline Phosphatase 38 (35-129) units/L Total Creatine Kinase 38 (30-135) units/L CK-MB (CK-2) 1.2 (0.0-4.0) ng/mL CK-MB (CK-2) Rel Index 3.1 (0-4) Troponin T < 0.010 (0.00-0.029) ng/mL Total Protein 6.5 (6.3-8.2) g/dL Albumin 3.5 L (3.9-5) g/dL Albumin/Globulin Ratio 1.2 % Urine Color (Yellow) Urine Turbidity (Clear) Urine pH (5.0-7.0) Ur Specific [place] (1.003-1.030) Urine Protein (Negative) mg/dL Urine Glucose (UA) (Negative) mg/dL Urine Ketones (Negative) mg/dL Urine Blood (Negative) Urine Nitrite (Negative) Urine Bilirubin (Negative) Urine Urobilinogen (<2.0) mg/dL Ur Leukocyte Esterase (Negative) Urine WBC (Auto) (0.0-6.0) /HPF Urine RBC (Auto) (0.0-6.0) /HPF Urine Mucus /HPF Blood Type O POSITIVE Antibody Screen TNR OLENA Antibody Screen Negative 11/17/18 11/18/18 Range/Units 19:14 00:52 WBC (4.5-11.0) K/mm3 RBC (3.65-5.03) M/mm3 Hgb (10.1-14.3) gm/dl Hct (30.3-42.9) % MCV (79-97) fl MCH (28-32) pg MCHC (30-34) % RDW (13.2-15.2) % Plt Count (140-440) K/mm3 Lymph % (Auto) (13.4-35.0) % [place] % (Auto) (0.0-7.3) % Eos % (Auto) (0.0-4.3) % Baso % (Auto) (0.0-1.8) % Lymph # (1.2-5.4) K/mm3 [place] # (0.0-0.8) K/mm3 Eos # (0.0-0.4) K/mm3 Baso # (0.0-0.1) K/mm3 Seg Neutrophils % (40.0-70.0) % Seg Neutrophils # (1.8-7.7) K/mm3 PT 13.3 (12.2-14.9) Sec. INR 0.95 (0.87-1.13) APTT 30.9 (24.2-36.6) Sec. Sodium (137-145) mmol/L Potassium (3.6-5.0) mmol/L Chloride (98-107) mmol/L Carbon Dioxide (22-30) mmol/L Anion Gap mmol/L BUN (7-17) mg/dL Creatinine (0.7-1.2) mg/dL Estimated GFR ml/min BUN/Creatinine Ratio % Glucose (65-100) mg/dL Calcium (8.4-10.2) mg/dL Total Bilirubin (0.1-1.2) mg/dL AST (5-40) units/L ALT (7-56) units/L Alkaline Phosphatase (35-129) units/L Total Creatine Kinase (30-135) units/L CK-MB (CK-2) (0.0-4.0) ng/mL CK-MB (CK-2) Rel Index (0-4) Troponin T (0.00-0.029) ng/mL Total Protein (6.3-8.2) g/dL Albumin (3.9-5) g/dL Albumin/Globulin Ratio % Urine Color Yellow (Yellow) Urine Turbidity Clear (Clear) Urine pH 5.0 (5.0-7.0) Ur Specific [place] 1.021 (1.003-1.030) Urine Protein <15 mg/dl (Negative) mg/dL Urine Glucose (UA) Neg (Negative) mg/dL Urine Ketones Tr (Negative) mg/dL Urine Blood Neg (Negative) Urine Nitrite Neg (Negative) Urine Bilirubin Neg (Negative) Urine Urobilinogen < 2.0 (<2.0) mg/dL Ur Leukocyte Esterase Neg (Negative) Urine WBC (Auto) < 1.0 (0.0-6.0) /HPF Urine RBC (Auto) < 1.0 (0.0-6.0) /HPF Urine Mucus Few /HPF Blood Type Antibody Screen OLENA Antibody Screen - EKG Data -: EKG Interpreted by Ia EKG shows normal: sinus rhythm, axis (qrs 80), QRS complexes (qrsd 71), ST-T waves (no stemi/t inv) Rate: normal (84) - EKG Data When compared to previous EKG there are: previous EKG unavailable - Radiology Data Radiology results: report reviewed PROCEDURE: CT HEAD/BRAIN WO CON TECHNIQUE: Computerized tomography of the head was performed without contrast material. CT DOSE LENGTH PRODUCT: 805.4 mGycm HISTORY: fall with facial lac . Head pain. COMPARISONS: None . FINDINGS: Brain: There is no evidence of intracranial hemorrhage. No parenchymal hemorrhage is seen. No mass lesions or mass effect is identified. No abnormal extra-axial fluid collections or masses are seen. Ventricles: The ventricles, sulcal pattern and fissures are prominent consistent with atrophy. Bone Windows: No evidence of fracture. Paranasal sinuses: Visualized portions are clear.. Mastoid air cells: Visualized portions are clear.. IMPRESSION: No evidence of intracranial hemorrhage or skull fracture. There is evidence of mild atrophy. PROCEDURE: CT FACIAL BONES WO CON TECHNIQUE: Spiral CT imaging of the facial bones is obtained without IV contrast. Computer generated coronal and sagittal reconstructions were created. HISTORY: fall with facial lac COMPARISONS: None FINDINGS: No facial fractures are identified. The nasal bone, the orbits, the zygomas and zygomatic arches are intact. The hernandez of the paranasal sinuses also appear intact. The mandible is intact. No fracture or dislocation is seen. There is mild nodular mucosal thickening inferiorly in the right and left maxillary sinuses suggesting polyps and/or mucous retention cysts. No air-fluid levels are visualized. The paranasal sinuses otherwise are clear. There is artifact from bandaging overlying the patient's forehead. Small scalp hematoma appears to be visualized mid forehead. No radiopaque foreign bodies are identified. IMPRESSION: No evidence of facial fracture. Mild paranasal sinus disease as described. Mild soft tissue swelling midforehead.. PROCEDURE: CT cervical spine without contrast. TECHNIQUE: Computerized tomography of the cervical spine was performed from the skull base to T1 without contrast material. CT DOSE LENGTH PRODUCT: 387.1 mGycm HISTORY: fall,head injury, neck pain COMPARISONS: None. FINDINGS: The cervical vertebrae have normal height and alignment. There are no fractures. There is no subluxation. There is moderate disc space narrowing at C5-6 and C6-7. The spinal canal is widely patent. There is mild osteoarthritis involving the facet joints. The neural foramina appear widely patent. IMPRESSION: No significant abnormality. - Medical Decision Making pt had dermabond repair of lacerations tetanus utd imaging unremarkable 1 L on NS provided for decreased po intake Leukopenia and thrombocytopenia fairly similar to previous value from several days ago. Hematology follow-up advised. Differential includes cancer versus psychiatric meds side effect. Pt states she is aware of these abnormalities and plans to f/u - Differential Diagnosis fracture, contusion, sprain, intracranial hemorrhage, laceration Critical Care Time: No Critical care attestation.: If time is entered above; I have spent that time in minutes in the direct care of this critically ill patient, excluding procedure time. ED Disposition Clinical Impression: Generalized weakness, Poor appetite, IBS (irritable bowel syndrome), Fall, Thrombocytopenia, Leukopenia, Forehead laceration Disposition: DC- TO HOME OR SELFCARE Is pt being admited?: No Does the pt Need Aspirin: No Condition: Stable Instructions: Irritable Bowel Syndrome (ED), Weakness (ED), Thrombocytopenia (ED), Skin Adhesive Care (ED) Additional Instructions: Take the medication as prescribed. Follow up with your doctor or the clinic/doctor provided. Return if symptoms worsen as indicated by your discharge instructions Referrals: MAGUI DONG MD [Primary Care Provider] - 3-5 Days MIK LAO MD [Staff Physician] - 3-5 Days (innovations paraprofessional) RADHA POND MD [Staff Physician] - 3-5 Days (GI doctor ) Time of Disposition: 01:38
--- NOTE | 2018-11-17 21:33 | Cat Scan Report ---
PROCEDURE: CT FACIAL BONES WO CON TECHNIQUE: Spiral CT imaging of the facial bones is obtained without IV contrast. Computer generated coronal and sagittal reconstructions were created. HISTORY: fall with facial lac COMPARISONS: None FINDINGS: No facial fractures are identified. The nasal bone, the orbits, the zygomas and zygomatic arches are intact. The hernandez of the paranasal sinuses also appear intact. The mandible is intact. No fracture or dislocation is seen. There is mild nodular mucosal thickening inferiorly in the right and left maxillary sinuses suggestin g polyps and/or mucous retention cysts. No air-fluid levels are visualized. The paranasal sinuses oth erwise are clear. There is artifact from bandaging overlying the patient's forehead. Small scalp hematoma appears to be visualized mid forehead. No radiopaque foreign bodies are identified. IMPRESSION: No evidence of facial fracture. Mild paranasal sinus disease as described. Mild soft tissue swelling midforehead.. This document is electronically signed by Marcos Guerrero MD., Nov 17 2018 09:31:08 PM ET
[2018-11-17] MEDS ORDERED: POLYSPORIN TP ONE (21:50)
[2018-11-17] MEDS ORDERED: TRIPLE ANTIBIOTIC TP ONE (21:54)
--- NOTE | 2018-11-17 23:50 | Cat Scan Report ---
PROCEDURE: CT cervical spine without contrast. TECHNIQUE: Computerized tomography of the cervical spine was performed from the skull base to T1 wit hout contrast material. CT DOSE LENGTH PRODUCT: 387.1 mGycm HISTORY: fall,head injury, neck pain COMPARISONS: None. FINDINGS: The cervical vertebrae have normal height and alignment. There are no fractures. There is no subluxat ion. There is moderate disc space narrowing at C5-6 and C6-7. The spinal canal is widely patent. Ther e is mild osteoarthritis involving the facet joints. The neural foramina appear widely patent. IMPRESSION: No significant abnormality. This document is electronically signed by Tariq Esqueda MD., Nov 17 2018 11:48:48 PM ET
[2018-11-18 01:04] LABS: Bilirubin,Urine NEG (Negative); Blood,Urine NEG (Negative); Color,Urine Yellow (Yellow); Mucus,Urine FEW /HPF; Protein,Urine <15 mg/dL mg/dL (Negative); RBC,Urine < 1.0 /HPF (0.0-6.0); Urobilinogen,Urine < 2.0 mg/dL (<2.0); WBC,Urine < 1.0 /HPF (0.0-6.0)
[2018-11-18 02:16] VITALS: BP 104/70
== END 2018-11-18 02:17 | disposition home or self-care (01) ==
LOC: ED 18:33
DX: S01.81XA Laceration without foreign body of other part of head, initial encounter (principal); K58.9 Irritable bowel syndrome, unspecified; D72.819 Decreased white blood cell count, unspecified; D69.6 Thrombocytopenia, unspecified; J45.909 Unspecified asthma, uncomplicated; Z90.49 Acquired absence of other specified parts of digestive tract; Z87.891 Personal history of nicotine dependence; Z88.8 Allergy status to other drugs, medicaments and biological substances; Z79.899 Other long term (current) drug therapy; W01.0XXA Fall on same level from slipping, tripping and stumbling without subsequent striking against object, initial encounter; Y93.89 Activity, other specified; Y92.89 Other specified places as the place of occurrence of the external cause; Y99.8 Other external cause status
CPT/HCPCS: 12013; 36415; 70450; 70486; 72125; 80053; 81001; 82550; 82553; 84484; 85025; 85610; 85730; 86850; 86900; 86901; 93005; 93010; 99284; J7030; A6250

== ENCOUNTER 2019-03-25 11:50 | Inpatient (IN) | payer MEDICARE ==
--- NOTE | 2019-03-25 11:59 | Event Note ---
ED Screening Note Date of service: 03/25/19 Time: 11:54 ED Screening Note: cAREGIVER REPORTS THAT PATIENT FELL 2 DAYS AGO AND WAS WALKING YESTERDAY AND WAS ABLE O GO UP AND DOWN STRAIRS. fELL OFF ONE STEP AND LANDED SIDE HAVING PAIN IN BOTH THIGHS. dENIES HEAD INJURY EXAM: PATIENT SCREAMS WHEN BOTH THIGH TOUCHED. NO BRUISING NOTED PATIENT IS ALERT AND ALERT AND RESPONSIVE. hEAD IS NORMAL This initial assessment/diagnostic orders/clinical plan/treatment(s) is/are subject to change based on patients health status, clinical progression and re- assessment by fellow clinical providers in the ED. Further treatment and workup at subsequent clinical providers discretion. Patient/guardian urged not to elope from the ED as their condition may be serious if not clinically assessed and managed. Initial orders include: XRAY FEMUR
--- NOTE | 2019-03-25 13:06 | XRay Report ---
BILATERAL FEMURS, 8 VIEWS INDICATION / CLINICAL INFORMATION: FALL WITH BILATERAL THIGH PAIN. COMPARISON: None available. FINDINGS: Right femur: No fracture or other significant finding is identified related to the right femur. Left femur: There is a mildly displaced subcapital left femoral neck fracture. The remainder of the l eft femur is intact. IMPRESSION: Left subcapital femoral neck fracture. Signer Name: Heidy Kwok MD Signed: 03/25/2019 1:01 PM Workstation Name: [id number]
[2019-03-25] MEDS ORDERED: ONDANSETRON 4 MG/2 ML INJ IV ONE (13:49)
[2019-03-25] MEDS ORDERED: MORPHINE 2 MG/1 ML INJ IV ONE (13:49)
--- NOTE | 2019-03-25 14:00 | Emergency Department Report ---
ED Fall HPI - General Chief Complaint: Extremity Injury, Lower Stated Complaint: LFT LEG PAIN Time Seen by Provider: 03/25/19 11:53 Source: patient, family, EMS Mode of arrival: Ambulatory - History of Present Illness Initial Comments: 59-year-old female presents to the emergency room complaining of left leg pain. Patient reports pain is worse with movement. It was reported at patient had a fall yesterday down a half step to the garage and had fallen on her left side. Patient caregiver reports that when she found her which is only seconds being down she was on her right side. Patient has a past medical history of paranoid schizophrenia and eating disorder. She complains of pain 6- 7 out of 10. 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) Fall Witnessed: no Place Fall Occurred: home Loss of Consciousness: none Prolonged Down Time?: no Symptoms Prior to Fall: none Location - Extremities: Left: Thigh Severity: moderate Severity scale (0 -10): 6 Quality: aching Associated Symptoms: denies - Related Data Home Medications Medication Instructions Recorded Confirmed Last Taken Benztropine [Cogentin] 1 mg PO QID 03/25/19 03/25/19 Unknown Divalproex ER [DepaKOTE ER] 500 mg PO BID 03/25/19 03/25/19 Unknown Duloxetine HCl 60 mg PO QDAY 03/25/19 03/25/19 Unknown Haloperidol Lactate 5 mg IM PRN 03/25/19 Unknown Megestrol [Megace] 40 mg PO BID 03/25/19 03/25/19 Unknown Mirtazapine [Remeron 15mg TAB] 15 mg PO QHS 03/25/19 03/25/19 Unknown Allergies Allergy/AdvReac Type Severity Reaction Status Date / Time aripiprazole [From Abilify] Allergy Unknown Verified 11/17/18 18:36 paliperidone [From Invega] Allergy Unknown Verified 11/17/18 18:36 ED Review of Systems ROS: Stated complaint: LFT LEG PAIN Other details as noted in HPI Comment: All other systems reviewed and negative ED Past Medical Hx - Past Medical History Hx Psychiatric Treatment: Yes (anxiety and depression Schizo-affective, bipolar) Hx Asthma: Yes Additional medical history: cdiff. hypoglycemia. rheumatic fever. Irritable bowel syndrome - Surgical History Past Surgical History?: Yes Hx Cholecystectomy: Yes Additional Surgical History: tonsil. cervical cancer surgery - Social History Smoking Status: Former Smoker Substance Use Type: Alcohol - Medications Home Medications: Home Medications Medication Instructions Recorded Confirmed Last Taken Type Benztropine [Cogentin] 1 mg PO QID 03/25/19 03/25/19 Unknown History Divalproex ER [DepaKOTE ER] 500 mg PO BID 03/25/19 03/25/19 Unknown History Duloxetine HCl 60 mg PO QDAY 03/25/19 03/25/19 Unknown History Haloperidol Lactate 5 mg IM PRN 03/25/19 Unknown History Megestrol [Megace] 40 mg PO BID 03/25/19 03/25/19 Unknown History Mirtazapine [Remeron 15mg TAB] 15 mg PO QHS 03/25/19 03/25/19 Unknown History ED Physical Exam - General Limitations: Physical Limitation General appearance: alert, in no apparent distress - Head Head exam: Present: atraumatic, normocephalic - Eye Eye exam: Present: normal appearance - ENT ENT exam: Present: mucous membranes moist - Neck Neck exam: Present: normal inspection - Respiratory Respiratory exam: Present: normal lung sounds bilaterally. Absent: respiratory distress - Cardiovascular Cardiovascular Exam: Present: regular rate, normal rhythm. Absent: systolic murmur, diastolic murmur, rubs, gallop - GI/Abdominal GI/Abdominal exam: Present: soft, normal bowel sounds. Absent: distended, tenderness - Expanded Lower Extremity Exam Left Hip exam: Present: shortening Upper Leg exam: Present: tenderness, swelling Knee exam: Present: normal inspection Lower Leg exam: Present: normal inspection Ankle exam: Present: normal inspection Foot/Toe exam: Present: normal inspection Neuro vascular tendon exam: Present: no vascular compromise - Back Exam Back exam: Present: normal inspection - Neurological Exam Neurological exam: Present: alert, oriented X3 - Psychiatric Psychiatric exam: Present: normal affect, normal mood - Skin Skin exam: Present: warm, dry, intact, normal color. Absent: rash ED Course Vital Signs 03/25/19 03/25/19 11:53 13:03 Temperature 98.1 F Pulse Rate 76 64 Respiratory 18 17 Rate Blood Pressure 105/68 122/76 [Left] O2 Sat by Pulse 98 99 Oximetry ED Medical Decision Making - Medical Decision Making 59-year-old female presents to the emergency room complaining of left leg pain. Patient reports pain is worse with movement. It was reported at patient had a fall yesterday down a half step to the garage and had fallen on her left side. Patient caregiver reports that when she found her which is only seconds being down she was on her right side. Patient has a past medical history of paranoid schizophrenia and eating disorder. She complains of pain 6- 7 out of 10. X-ray left hip Zofran 4 mg IV morphine 2 mg IV for pain management 3 shows several Otitis mildly displace of the left femoral neck fracture. Spoke to Dr. Graham he requests patient to be admitted to the hospitalist and he will consult the patient in the morning. Spoke with Dr. Nicholson hospitalist he has accepted the admission. Critical care attestation.: If time is entered above; I have spent that time in minutes in the direct care of this critically ill patient, excluding procedure time. ED Disposition Clinical Impression: Closed left hip fracture Qualifiers: Encounter type: initial encounter Qualified Code(s): S72.002A - Fracture of unspecified part of neck of left femur, initial encounter for closed fracture Disposition: OP ADMIT IP TO THIS HOSP Is pt being admited?: Yes Does the pt Need Aspirin: Yes Condition: Stable
--- NOTE | 2019-03-25 14:04 | History and Physical Report ---
History of Present Illness Chief complaint: I fell and hurt my leg History of present illness: 59 YO Female with Anxiety, Depression, Bipolar Disorder, Schizoaffective Disorder, IBS, Severe Malnutrition presents to ED for evaluation. Pt states that she missed a step while walking into her garage on yesterday and subsequently fell onto the floor. Pt has experienced pain with ambulating since the fall on yesterday. Pt reports pain to her left hip that is 6-7/10, constant, worsened with ambulation, relieved with rest and non weight bearing. EMS notified, and upon arrival the patient was found to be in distress and transported to [facility]. Pt seen and evaluated in ED and found to have Left Femoral Neck fracture, Severl malnutrition, Acidosis, Volume Depletion. Ortho consulted in ED. Pt is pending surgical intervention as per ortho team. Pt admitted to surgical floor, and placed on IVF resuscitation therapy, as well as IV bicarbonate therapy. No prior admission for review. All listed medication reconciled at time of exam. Past History Past Medical History: cancer, other (Anxiety, Depression, Severe Malnutrition) Past Surgical History: cholecystectomy, tonsillectomy Social history: single. denies: smoking, alcohol abuse, prescription drug abuse Family history: no significant family history (reviewed) Medications and Allergies Allergies Allergy/AdvReac Type Severity Reaction Status Date / Time aripiprazole [From Abilify] Allergy Unknown Verified 11/17/18 18:36 paliperidone [From Invega] Allergy Unknown Verified 11/17/18 18:36 Home Medications Medication Instructions Recorded Confirmed Last Taken Type Benztropine [Cogentin] 1 mg PO QID 03/25/19 03/25/19 Unknown History Divalproex ER [DepaKOTE ER] 500 mg PO BID 03/25/19 03/25/19 Unknown History Duloxetine HCl 60 mg PO QDAY 03/25/19 03/25/19 Unknown History Haloperidol Lactate 5 mg IM PRN 03/25/19 Unknown History Megestrol [Megace] 40 mg PO BID 03/25/19 03/25/19 Unknown History Mirtazapine [Remeron 15mg TAB] 15 mg PO QHS 03/25/19 03/25/19 Unknown History Review of Systems Constitutional: weakness, no weight loss, no weight gain, no fever Ears, nose, mouth and throat: no ear pain, no ear discharge, no nose pain, no nasal congestion Breasts: no change in shape, no swelling, no mass Cardiovascular: no chest pain, no orthopnea, no palpitations, no rapid/irregular heart beat, no edema, no syncope, no lightheadedness, no shortness of breath Respiratory: no cough, no cough with sputum, no excessive sputum, no hemoptysis, no shortness of breath Gastrointestinal: no nausea, no vomiting, no constipation, no change in bowel habits, no hematemesis Genitourinary Female: no pelvic pain, no flank pain, no menorrhagia Rectal: no pain, no incontinence, no bleeding Musculoskeletal: other (Left hip pain), no neck stiffness, no neck pain, no shooting arm pain, no low back pain Integumentary: no rash, no pruritis, no redness, no wounds, no jaundice, no boils Neurological: no head injury, no paralysis, no weakness, no parathesias, no numbness, no tingling, no seizures, no syncope, no tremors, no ataxia, no lack of coordination Psychiatric: no anxiety, no memory loss, no change in sleep habits, no insomnia, no hypersomnia, no change in appetite, no change in libido, no suicidal ideation, no disorientation, no hallucinations Endocrine: no cold intolerance, no heat intolerance, no polyphagia, no excessive thirst, no polydipsia, no polyuria, no nocturia, no excessive sweating, no flus lennie Hematologic/Lymphatic: no easy bruising, no easy bleeding, no lymphadenopathy, no lymphedema Allergic/Immunologic: no urticaria, no allergic rhinitis, no wheezing, no persistent infections, no anaphylaxis Exam - Constitutional Vitals: Temp Pulse Resp BP Pulse Ox 98.1 F 64 17 122/76 99 03/25/19 11:53 03/25/19 13:03 03/25/19 13:03 03/25/19 13:03 03/25/19 13:03 General appearance: Present: mild distress, cachectic - EENT Eyes: Present: PERRL ENT: hearing intact, clear oral mucosa - Neck Neck: Present: supple, normal ROM - Respiratory Respiratory effort: normal Respiratory: bilateral: CTA - Cardiovascular Heart Sounds: Present: S1 & S2. Absent: rub, click - Extremities Extremities: pulses symmetrical, No edema Extremity abnormal: deformity, other (LLE) Peripheral Pulses: within normal limits - Abdominal General gastrointestinal: Present: soft, non-tender, non-distended, normal bowel sounds Female genitourinary: Present: normal - Integumentary Integumentary: Present: clear, warm, dry - Musculoskeletal Musculoskeletal: gait normal, strength equal bilaterally - Psychiatric Psychiatric: appropriate mood/affect, intact judgment & insight - Neurologic Neurologic: CNII-XII intact, moves all extremities Results - Labs CBC & Chem 7: 03/25/19 15:08 Assessment and Plan - Patient Problems (1) Closed left hip fracture Current Visit: Yes Status: Acute Qualifiers: Encounter type: initial encounter Qualified Code(s): S72.002A - Fracture of unspecified part of neck of left femur, initial encounter for closed fracture Plan to address problem: Ortho consulted, pending surgical intervention, pain control, (2) Severe malnutrition Current Visit: Yes Status: Acute Plan to address problem: encourage increased protein intake, dietary supplementation (3) Volume depletion Current Visit: Yes Status: Acute Plan to address problem: IVF resuscitation therapy, repeat bmp in am. (4) Acidosis Current Visit: Yes Status: Acute Plan to address problem: IVF resuscitation therapy, IV bicarbonate therapy, repeat bmp (5) Fall (on) (from) other stairs and steps, initial encounter Current Visit: Yes Status: Acute Plan to address problem: CT head, neuro check, supportive care (6) DVT prophylaxis Current Visit: Yes Status: Acute Plan to address problem: SCD to BLE while in bed,
[2019-03-25] MEDS ORDERED: ONDANSETRON 4 MG/2 ML INJ IV PRN (14:26)
[2019-03-25] MEDS ORDERED: ACETAMINOPHEN 325 MG TAB PO PRN (14:26)
[2019-03-25 14:56] LABS: Bilirubin,Urine NEG (Negative); Blood,Urine NEG (Negative); Color,Urine Yellow (Yellow); Mucus,Urine FEW /HPF; Urobilinogen,Urine < 2.0 mg/dL (<2.0)
[2019-03-25 15:37] LABS: Alanine Aminotransferase 38 units/L (7-56); Albumin 3.2 g/dL (3.9-5); BUN/Creatinine Ratio 26; Blood Urea Nitrogen 18 mg/dL (7-17); Calcium 8.9 mg/dL (8.4-10.2); Hemolysis Index 17
[2019-03-25 19:41] LABS: Hematocrit 37.8 % (30.3-42.9); Hemoglobin 12.7 gm/dl (10.1-14.3); Mean Corpuscular HGB Conc 33 % (30-34); Mean Corpuscular Volume 92 fl (79-97); Red Blood Count 4.13 M/mm3 (3.65-5.03); Red Cell Distribution Width 15.1 % (13.2-15.2)
[2019-03-25 19:46] LABS: Platelet Count 97 K/mm3 (140-440)
[2019-03-25] MEDS ORDERED: SODIUM BICARB 8.4% 50 MEQ/50 ML SYRINGE IV ONE (20:00)
--- NOTE | 2019-03-25 20:19 | Cat Scan Report ---
CT HEAD WITHOUT CONTRAST INDICATION / CLINICAL INFORMATION: MAIN: fall, FOREHEAD PAIN. TECHNIQUE: All CT scans at this location are performed using CT dose reduction for ALARA by means of automated e xposure control. COMPARISON: Head CT images 11/17/2018. Report unavailable FINDINGS: HEMORRHAGE: None. EXTRA-AXIAL SPACES: Normal in size and morphology for the patient's age. VENTRICULAR SYSTEM: Normal in size and morphology for the patient's age. CEREBRAL PARENCHYMA: Mild cerebral atrophy, unchanged No significant abnormality. No acute territoria l infarct. MIDLINE SHIFT OR HERNIATION: None. CEREBELLUM / BRAINSTEM: No significant abnormality. ORBITS: Normal as visualized. SOFT TISSUES of HEAD: No significant abnormality. CALVARIUM: No significant abnormality. PARANASAL SINUSES / MASTOID AIR CELLS: Normal as visualized. ADDITIONAL FINDINGS: None. IMPRESSION: 1. No acute intracranial abnormality. 2. Mild age-appropriate cerebral atrophy, unchanged Signer Name: Jose Jacques MD Signed: 03/25/2019 8:15 PM Workstation Name: [id number]
[2019-03-25 20:30] LABS: Basophils % (Manual) 0 % (0.0-1.8); Eosinophils % (Manual) 0 % (0.0-4.3); Total Cells Counted 100
[2019-03-25 20:31] LABS: Platelet Estimate Appears Decreased
[2019-03-25 20:32] LABS: Anisocytosis 1+; Ovalocytes 1+
[2019-03-25] MEDS: SODIUM CHLORIDE 0.9% 1000 ML 1,000 ML IV SCH (23:38)
[2019-03-26] MEDS ORDERED: BUPIVACAINE/PF (0.5%) 5 MG/1 ML 30 ML VIAL INFILTRATI ONE ×2 (07:32→12:33)
[2019-03-26] MEDS ORDERED: KETOROLAC 30 MG/1 ML INJ ONE (07:32)
[2019-03-26] MEDS ORDERED: MORPHINE 10 MG/1 ML INJ ONE (07:32)
[2019-03-26] MEDS ORDERED: SODIUM CHLORIDE 0.9% 250ML 250 ML ONE (07:33)
[2019-03-26] MEDS ORDERED: fentaNYL 100 MCG/2 ML INJ IV PRN (08:32)
[2019-03-26] MEDS ORDERED: ONDANSETRON 4 MG/2 ML INJ IV PRN (08:32)
[2019-03-26] MEDS ORDERED: HYDROmorphone 1 MG/1 ML INJ IV PRN (08:32)
[2019-03-26] MEDS ORDERED: HYDROcodone/ACETAMINOPHEN 10-325MG TAB PO PRN (10:39)
--- NOTE | 2019-03-26 10:41 | Progress Note ---
Assessment and Plan Assessment and plan: 59-year-old woman with history of bipolar/schizoaffective disorder, IBS, severe malnutrition who presents after a mechanical fall after which she broke her left hip. Diagnosis Left hip fracture Schizoaffective disorder IBS Moderate to severe malnutrition, BMI 19, albumin of 3.2 Dehydration/metabolic acidosis Plan management of hip fracture by orthopedic surgery, consult pending Continue home medications, dietitian consult, continue Megace which she was taking at home DVT prophylaxis with Lovenox History Interval history: Left hip pain is tolerable pain medications Review of systems Constitutional: No fevers, no malaise, no joint pains CVS: No chest pain, no orthopnea, no pedal edema GI: No abdominal pain, no diarrhea, no vomiting, no constipation Respiratory: No shortness of breath, no wheezing, no coughing Hospitalist Physical - Physical exam Narrative exam: General.: Mild distress HEENT: Moist mucous membranes, extraocular muscles intact, no lymphadenopathy Neck: supple Cardiac: S1-S2 heard Lungs: clear to auscultation bilaterally Abdomen: soft , nontender, nondistended, bowel sounds positive Extremities: no edema clubbing or cyanosis Skin: no rash or lesions Neurologic: no gross focal deficits Psych: calm, and cooperative - Constitutional Vitals: Temp Pulse Resp BP Pulse Ox 98.3 F 65 18 117/71 97 03/26/19 07:30 03/26/19 07:30 03/26/19 07:30 03/26/19 07:30 03/26/19 07:30 General appearance: Present: cachectic Results - Labs CBC & Chem 7: 03/25/19 19:02 03/25/19 15:08 Labs: Laboratory Last Values WBC 4.8 K/mm3 (4.5-11.0) 03/25/19 19:02 RBC 4.13 M/mm3 (3.65-5.03) 03/25/19 19:02 Hgb 12.7 gm/dl (10.1-14.3) 03/25/19 19:02 Hct 37.8 % (30.3-42.9) 03/25/19 19:02 MCV 92 fl (79-97) 03/25/19 19:02 MCH 31 pg (28-32) 03/25/19 19:02 MCHC 33 % (30-34) 03/25/19 19:02 RDW 15.1 % (13.2-15.2) 03/25/19 19:02 Plt Count 97 K/mm3 (140-440) L 03/25/19 19:02 Lymph % (Auto) [employer] 03/25/19 19:02 [place] % (Auto) [employer] 03/25/19 19:02 Eos % (Auto) [employer] 03/25/19 19:02 Baso % (Auto) [employer] 03/25/19 19:02 Lymph # [employer] 03/25/19 19:02 [place] # [employer] 03/25/19 19:02 Eos # [employer] 03/25/19 19:02 Baso # [employer] 03/25/19 19:02 Add Manual Diff Complete 03/25/19 19:02 Total Counted 100 03/25/19 19:02 Seg Neutrophils % [employer] 03/25/19 19:02 Seg Neuts % (Manual) 82.0 % (40.0-70.0) H 03/25/19 19:02 Band Neutrophils % 0 % 03/25/19 19:02 Lymphocytes % (Manual) 15.0 % (13.4-35.0) 03/25/19 19:02 Reactive Lymphs % (Man) 0 % 03/25/19 19:02 Monocytes % (Manual) 2.0 % (0.0-7.3) 03/25/19 19:02 Eosinophils % (Manual) 0 % (0.0-4.3) 03/25/19 19:02 Basophils % (Manual) 0 % (0.0-1.8) 03/25/19 19:02 Metamyelocytes % 0 % 03/25/19 19:02 Myelocytes % 1.0 % 03/25/19 19:02 Promyelocytes % 0 % 03/25/19 19:02 Blast Cells % 0 % 03/25/19 19:02 Nucleated RBC % Not Reportable 03/25/19 19:02 Seg Neutrophils # [employer] Teacher 03/25/19 19:02 Seg Neutrophils # Man 3.9 K/mm3 (1.8-7.7) 03/25/19 19:02 Band Neutrophils # 0.0 K/mm3 03/25/19 19:02 Lymphocytes # (Manual) 0.7 K/mm3 (1.2-5.4) L 03/25/19 19:02 Abs React Lymphs (Man) 0.0 K/mm3 03/25/19 19:02 Monocytes # (Manual) 0.1 K/mm3 (0.0-0.8) 03/25/19 19:02 Eosinophils # (Manual) 0.0 K/mm3 (0.0-0.4) 03/25/19 19:02 Basophils # (Manual) 0.0 K/mm3 (0.0-0.1) 03/25/19 19:02 Metamyelocytes # 0.0 K/mm3 03/25/19 19:02 Myelocytes # 0.0 K/mm3 03/25/19 19:02 Promyelocytes # 0.0 K/mm3 03/25/19 19:02 Blast Cells # 0.0 K/mm3 03/25/19 19:02 WBC Morphology Not Reportable 03/25/19 19:02 Hypersegmented Neuts Not Reportable 03/25/19 19:02 Hyposegmented Neuts Not Reportable 03/25/19 19:02 Hypogranular Neuts Not Reportable 03/25/19 19:02 Smudge Cells Not Reportable 03/25/19 19:02 Toxic Granulation Not Reportable 03/25/19 19:02 Toxic Vacuolation Not Reportable 03/25/19 19:02 Dohle Bodies Not Reportable 03/25/19 19:02 Pelger-Huet Anomaly Not Reportable 03/25/19 19:02 Morena Rods Not Reportable 03/25/19 19:02 Platelet Estimate Appears decreased 03/25/19 19:02 Clumped Platelets Not Reportable 03/25/19 19:02 Plt Clumps, EDTA Not Reportable 03/25/19 19:02 Large Platelets Not Reportable 03/25/19 19:02 Giant Platelets Not Reportable 03/25/19 19:02 Platelet Satelliting Not Reportable 03/25/19 19:02 Plt Morphology Comment Not Reportable 03/25/19 19:02 RBC Morphology Not Reportable 03/25/19 19:02 Dimorphic RBCs Not Reportable 03/25/19 19:02 Polychromasia Not Reportable 03/25/19 19:02 Hypochromasia Not Reportable 03/25/19 19:02 Poikilocytosis Not Reportable 03/25/19 19:02 Anisocytosis 1+ 03/25/19 19:02 Microcytosis Not Reportable 03/25/19 19:02 Macrocytosis Not Reportable 03/25/19 19:02 Spherocytes Not Reportable 03/25/19 19:02 Pappenheimer Bodies Not Reportable 03/25/19 19:02 Sickle Cells Not Reportable 03/25/19 19:02 Target Cells Not Reportable 03/25/19 19:02 Tear Drop Cells Not Reportable 03/25/19 19:02 Ovalocytes 1+ 03/25/19 19:02 Helmet Cells Not Reportable 03/25/19 19:02 [place] Bodies Not Reportable 03/25/19 19:02 [place] Rings Not Reportable 03/25/19 19:02 [place] Cells Not Reportable 03/25/19 19:02 Bite Cells Not Reportable 03/25/19 19:02 Crenated Cell Not Reportable 03/25/19 19:02 Elliptocytes Not Reportable 03/25/19 19:02 Acanthocytes (Spur) Not Reportable 03/25/19 19:02 Rouleaux Not Reportable 03/25/19 19:02 Hemoglobin C Crystals Not Reportable 03/25/19 19:02 Schistocytes Not Reportable 03/25/19 19:02 Malaria parasites Not Reportable 03/25/19 19:02 [place]jo Bodies Not Reportable 03/25/19 19:02 Hem Pathologist Commnt No 03/25/19 19:02 PT 12.9 Sec. (12.2-14.9) 03/25/19 15:08 INR 1.00 (0.87-1.13) 03/25/19 15:08 Sodium 140 mmol/L (137-145) 03/25/19 15:08 Potassium 4.0 mmol/L (3.6-5.0) 03/25/19 15:08 Chloride 109.0 mmol/L (98-107) H 03/25/19 15:08 Carbon Dioxide 17 mmol/L (22-30) L 03/25/19 15:08 Anion Gap 18 mmol/L 03/25/19 15:08 BUN 18 mg/dL (7-17) H 03/25/19 15:08 Creatinine 0.7 mg/dL (0.7-1.2) 03/25/19 15:08 Estimated GFR > 60 ml/min 03/25/19 15:08 BUN/Creatinine Ratio 26 % 03/25/19 15:08 Glucose 71 mg/dL (65-100) 03/25/19 15:08 Calcium 8.9 mg/dL (8.4-10.2) 03/25/19 15:08 Total Bilirubin 0.40 mg/dL (0.1-1.2) 03/25/19 15:08 AST 23 units/L (5-40) 03/25/19 15:08 ALT 38 units/L (7-56) 03/25/19 15:08 Alkaline Phosphatase 43 units/L (35-129) 03/25/19 15:08 Total Protein 6.3 g/dL (6.3-8.2) 03/25/19 15:08 Albumin 3.2 g/dL (3.9-5) L 03/25/19 15:08 Albumin/Globulin Ratio 1.0 % 03/25/19 15:08 Urine Color Yellow (Yellow) 03/25/19 14:31 Urine Turbidity Clear (Clear) 03/25/19 14:31 Urine pH 5.0 (5.0-7.0) 03/25/19 14:31 Ur Specific [place] 1.030 (1.003-1.030) 03/25/19 14:31 Urine Protein 30 mg/dl mg/dL (Negative) 03/25/19 14:31 Urine Glucose (UA) Neg mg/dL (Negative) 03/25/19 14:31 Urine Ketones Tr mg/dL (Negative) 03/25/19 14:31 Urine Blood Neg (Negative) 03/25/19 14:31 Urine Nitrite Neg (Negative) 03/25/19 14:31 Urine Bilirubin Neg (Negative) 03/25/19 14:31 Urine Urobilinogen < 2.0 mg/dL (<2.0) 03/25/19 14:31 Ur Leukocyte Esterase Neg (Negative) 03/25/19 14:31 Urine WBC (Auto) 4.0 /HPF (0.0-6.0) 03/25/19 14:31 Urine RBC (Auto) 16.0 /HPF (0.0-6.0) 03/25/19 14:31 U Epithel Cells (Auto) < 1.0 /HPF (0-13.0) 03/25/19 14:31 Urine Mucus Few /HPF 03/25/19 14:31 Active Medications - Current Medications Current Medications: Generic Name Dose Route Start Last Admin Trade Name Freq PRN Reason Stop Dose Admin Acetaminophen 650 mg 03/25/19 14:26 Tylenol PO Q4H PRN Pain MILD(1-3)/Fever >100.5/[place] Benztropine Mesylate 1 mg 03/26/19 14:00 Cogentin PO QID [facility] Divalproex Sodium 500 mg 03/26/19 22:00 Depakote Er PO BID [facility] Fentanyl 50 mcg 03/26/19 08:32 Sublimaze IV 03/26/19 19:00 Q5MIN PRN Pain , Severe (7-10) Hydromorphone HCl 0.5 mg 03/26/19 08:32 Dilaudid IV 03/26/19 23:59 Q10MIN PRN Pain , Severe (7-10) Sodium Chloride 1,000 mls @ 75 mls/hr 03/25/19 20:00 03/25/19 23:38 Nacl 0.9% 1000 Ml IV 75 mls/hr DIRECT MARK Administration Megestrol Acetate 40 mg 03/26/19 22:00 Megace PO BID [facility] Miscellaneous Medication 60 mg 03/27/19 10:00 Duloxetine Hcl [Duloxetine Hcl] PO QDAY MARK Ondansetron HCl 4 mg 03/25/19 14:26 Zofran IV Q8H PRN Nausea And Vomiting Ondansetron HCl 4 mg 03/26/19 08:32 Zofran IV 03/26/19 16:00 ONCE PRN Nausea And Vomiting Sodium Chloride 10 ml 03/25/19 22:00 03/25/19 23:37 Sodium Chloride Flush Syringe 10 Ml IV 10 ml BID MARK Administration Sodium Chloride 10 ml 03/25/19 14:26 Sodium Chloride Flush Syringe 10 Ml IV PRN PRN LINE FLUSH Nutrition/Malnutrition Assess - Dietary Evaluation Nutrition/Malnutrition Findings: Nutrition Notes Start: 03/26/19 09:10 Freq: Status: Active Protocol: Document 03/26/19 09:10 LP (Rec: 03/26/19 09:13 LP [id number]) Nutrition Notes Need for Assessment generated from: MD Order Initial or Follow up Brief Note Other Pertinent Diagnosis IBS, close hip fx, bipolar Current Diet NPO Subjective/Other Information Consult for Malnutrition. Pt denies recent wt changes. Pt states wt and appetite does fluctuate. Noted hx of eating dx. Nutrition Intervention Follow-Up By: 03/28/19 Additional Comments Follow for intakes
--- NOTE | 2019-03-26 10:55 | Anesthesia Day of Surgery ---
Anesthesia Day of Surgery - Day of Surgery Patient Examined: Yes Patient H&P Reviewed: Yes Patient is NPO: Yes
--- NOTE | 2019-03-26 10:58 | Anesthesia Consultation ---
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
[2019-03-26] MEDS ORDERED: TRANEXAMIC ACID 1,000 MG/10 ML ONE (11:04)
[2019-03-26] MEDS ORDERED: SODIUM CHLORIDE 0.9% 0 ML ONE (11:05)
[2019-03-26] MEDS ORDERED: PROPOFOL 200 MG/20 ML VIAL IV ONE (11:28)
[2019-03-26] MEDS ORDERED: HYDROmorphone 1 MG/1 ML INJ ONE (11:28)
[2019-03-26] MEDS ORDERED: PHENYLEPHRINE/NS 1,000 MCG/10 ML SYRINGE (OR USE) IV ONE (11:53)
[2019-03-26] MEDS ORDERED: LIDOCAINE MPF (2%) 20 MG/1 ML VIAL 5 ML ONE (11:53)
[2019-03-26] MEDS ORDERED: SODIUM CHLORIDE 0.9% 1000 ML 1,000 ML ONE (11:53)
[2019-03-26] MEDS ORDERED: TRANEXAMIC ACID 1,000 MG/10 ML IV ONE (11:55)
[2019-03-26] MEDS ORDERED: SODIUM CHLORIDE 0.9% 100 ML ONE (12:00)
[2019-03-26] MEDS ORDERED: ceFAZolin/Water 2 GM/20 ML 2 GM/20 ML SYRINGE IV ONE (12:00)
[2019-03-26] MEDS ORDERED: SODIUM CHLORIDE 0.9% 50 ML IVPB IV ONE (12:33)
[2019-03-26] MEDS ORDERED: KETOROLAC 30 MG/1 ML INJ IV ONE (12:33)
[2019-03-26] MEDS ORDERED: MORPHINE 10 MG/1 ML INJ IM ONE (12:33)
--- NOTE | 2019-03-26 12:49 | Consultation ---
History of Present Illness - HPI Consult date: 03/26/19 Consult reason: fracture History of present illness: 59 YO Female with Anxiety, Depression, Bipolar Disorder, Schizoaffective Disorder, IBS, Severe Malnutrition presents to ED for evaluation. Pt states that she missed a step while walking into her garage on 03/24/19 and subsequently fell onto the floor. Pt has experienced pain with ambulating since the fall on yesterday. She was brought to the ED where xrays revealed displaced left femoral neck fracture... Past History Past Medical History: cancer, other (Anxiety, Depression, Severe Malnutrition) Past Surgical History: cholecystectomy, tonsillectomy Social history: single. denies: smoking, alcohol abuse, prescription drug abuse Family history: no significant family history (reviewed) Medications and Allergies Allergies Allergy/AdvReac Type Severity Reaction Status Date / Time aripiprazole [From Abilify] Allergy Unknown Verified 11/17/18 18:36 paliperidone [From Invega] Allergy Unknown Verified 11/17/18 18:36 lactose AdvReac Unknown Verified 03/26/19 09:11 Home Medications Medication Instructions Recorded Confirmed Last Taken Type Benztropine [Cogentin] 1 mg PO QID 03/25/19 03/25/19 Unknown History Divalproex ER [DepaKOTE ER] 500 mg PO BID 03/25/19 03/25/19 Unknown History Duloxetine HCl 60 mg PO QDAY 03/25/19 03/25/19 Unknown History Haloperidol Lactate 5 mg IM PRN 03/25/19 Unknown History Megestrol [Megace] 40 mg PO BID 03/25/19 03/25/19 Unknown History Mirtazapine [Remeron 15mg TAB] 15 mg PO QHS 03/25/19 03/25/19 Unknown History Active Meds: Active Medications Acetaminophen (Tylenol) 650 mg PO Q4H PRN PRN Reason: Pain MILD(1-3)/Fever >100.5/[place] Acetaminophen/Hydrocodone Bitart ([place] 10/325) 1 each PO Q6H PRN PRN Reason: Pain, Moderate (4-6) Benztropine Mesylate (Cogentin) 1 mg PO QID MARK Divalproex Sodium (Depakote Er) 500 mg PO BID MARK Duloxetine HCl (Cymbalta) 60 mg PO QDAY MARK Enoxaparin Sodium (Lovenox) 40 mg SUB-Q QDAY@2200 [facility] Fentanyl (Sublimaze) 50 mcg IV Q5MIN PRN PRN Reason: Pain , Severe (7-10) Stop: 03/26/19 19:00 Hydromorphone HCl (Dilaudid) 0.5 mg IV Q10MIN PRN PRN Reason: Pain , Severe (7-10) Stop: 03/26/19 23:59 Sodium Chloride (Nacl 0.9% 1000 Ml) 1,000 mls @ 75 mls/hr IV DIRECT [facility] Last Admin: 03/25/19 23:38 Dose: 75 mls/hr Documented by: Megestrol Acetate (Megace) 40 mg PO BID MARK Mirtazapine (Remeron) 15 mg PO QHS MARK Ondansetron HCl (Zofran) 4 mg IV Q8H PRN PRN Reason: Nausea And Vomiting Ondansetron HCl (Zofran) 4 mg IV ONCE PRN PRN Reason: Nausea And Vomiting Stop: 03/26/19 16:00 Sodium Chloride (Sodium Chloride Flush Syringe 10 Ml) 10 ml IV BID [facility] Last Admin: 03/25/19 23:37 Dose: 10 ml Documented by: Sodium Chloride (Sodium Chloride Flush Syringe 10 Ml) 10 ml IV PRN PRN PRN Reason: LINE FLUSH Physical Examination - Physical exam Narrative exam: left lower extremity - tender at groin, decreased active ROM, shortened and externally rotated, distal n/v intact Eyes: PERRL ENT: Positive: clear oral mucosa Respiratory effort: normal Respiratory: bilateral: CTA Rhythm: regular Heart Sounds: Positive: S1 & S2 General gastrointestinal: Positive: soft, non-tender, non-distended, normal bowel sounds Integumentary: clear, warm, dry Neurologic: Positive: CNII-XII intact, moves all extremities, gait normal. Neg ative: focal deficits - Cervical Spine Neck pain: none Tenderness with palpation: none Full ROM: yes ROM: flexion: normal ROM: extension: normal ROM: rotation right: normal ROM: rotation left: normal ROM: lateral flexion right: normal ROM: lateral flexion left: normal - Lumbar Spine Back pain: none Tenderness with palpation: none Appearance: normal Full ROM: yes ROM: flexion: normal ROM: extension: normal ROM: rotation right: normal ROM: rotation left: normal ROM: lateral flexion right: normal ROM: lateral flexion left: normal Assessment and Plan Displaced left femoral neck fracture Recommendations- Bipolar hip replacement
--- NOTE | 2019-03-26 12:50 | Procedure Note ---
Date of procedure: 03/26/19 Pre-op diagnosis: Displaced left femoral neck fracture Post-op diagnosis: same Procedure: Left Bipolar hip Replacement Procedure The patient was brought to the OR and placed on the OR table in supine position following induction and intubation by anesthesia the patient was placed in the right lateral decubitus position The left hip was then prepped and draped in the usual sterile manner a timeout procedure was done to identify the patient and the correct operative site. Next a lateral incision was made along the proximal femur was taken down sharply through skin and subcutaneous the fascia rahul was seen and incised. A Charnley retractor was placed deep within the wound next the anterior capsule was entered the femoral neck fracture was seen the remaining portion of the femoral neck was then osteotomized in line with a stem template The femoral head was retrieved using a corkscrew device measuring the size of the femoral head and a 43 mm diameter was chosen, followed by reaming and broaching to a #3 stem utilizing a neutral neck and a 28 mm head and the construct was then reduced the hip was taken through a range of motion and was found to be stable. All components were removed. Final components were assembled and inserted the hip was then reduced and taken through a range of motion and again it was found to be stable next the wound was copiously irrigated a cocktail mixture of Toradol and morphine. Again and saline was injected into the surrounding soft tissue for postop pain management following this the wound was closed in a standard routine fashion. Dressings were applied the patient tolerated the procedure there were no complications and he was sent to post anesthesia recovery Anesthesia: DARA Surgeon: RAUL HUFFMAN Resizer Operator: SONJA AGUILAR Estimated blood loss: other (300cc) Pathology: list (left femoral head/neck) Specimen disposition: to lab Condition: stable Disposition: PACU
[2019-03-26] MEDS ORDERED: ONDANSETRON 4 MG/2 ML INJ ONE (13:04)
--- NOTE | 2019-03-26 14:01 | XRay Report ---
LEFT HIP, 2 VIEWS INDICATION / CLINICAL INFORMATION: post op evaluation. COMPARISON: Preoperative radiograph the left femur, 03/25/2019 FINDINGS: There has been an interval placement of left hip arthroplasty. Hardware is intact. Alignment is anato jenny. No evidence of complication. Normal postoperative changes are seen in the surrounding soft tissu es. IMPRESSION: No evidence of complication- status post left hip arthroplasty. Signer Name: Heidy Kwok MD Signed: 03/26/2019 1:57 PM Workstation Name: [id number]
[2019-03-26] MEDS: BENZTROPINE 1 MG TAB PO SCH ×3 (14:34→21:46)
--- NOTE | 2019-03-26 14:53 | Post Anesthesia Evaluation ---
- Post Anesthesia Evaluation Patient Participated: Yes Airway Patent: Yes Stable Respiratory Function: Yes Nausea/Vomiting: No Temp > 96.8F: Yes Pain Manageable: Yes Adequeate Hydration: Yes Anesthesia Complications: No Block Receding Appropriately: Not Applicable Patient on Ventilator: No
[2019-03-26] MEDS: DIVALPROEX ER 500 MG TAB PO SCH (21:41)
[2019-03-26] MEDS: ENOXAPARIN 40 MG/0.4 ML INJ SUB-Q SCH (21:45)
[2019-03-26] MEDS: MEGESTROL 40 MG TAB PO SCH (21:45)
[2019-03-26] MEDS: MIRTAZAPINE 15 MG TAB PO SCH (21:46)
[2019-03-27] MEDS: SODIUM CHLORIDE 0.9% 1000 ML 1,000 ML IV SCH (04:14)
[2019-03-27 04:50] LABS: Hematocrit 32.9 % (30.3-42.9); Hemoglobin 11.1 gm/dl (10.1-14.3)
[2019-03-27] MEDS ORDERED: NON-FORMULARY EACH (Duloxetine Hcl [Duloxetine Hcl] 60 MG) PO SCH (10:00)
[2019-03-27] MEDS: MEGESTROL 40 MG TAB PO SCH ×2 (10:26→23:06)
[2019-03-27] MEDS: DIVALPROEX ER 500 MG TAB PO SCH ×2 (10:26→23:06)
[2019-03-27] MEDS: BENZTROPINE 1 MG TAB PO SCH ×3 (10:26→20:10)
[2019-03-27] MEDS: DULoxetine 30 MG CAP PO SCH (10:26)
--- NOTE | 2019-03-27 13:23 | Progress Note ---
Assessment and Plan Assessment and plan: 59-year-old woman with history of bipolar/schizoaffective disorder, IBS, severe malnutrition who presents after a mechanical fall after which she broke her left hip. Diagnosis Left hip fracture Schizoaffective disorder IBS Moderate to severe malnutrition, BMI 19, albumin of 3.2 Dehydration/metabolic acidosis Plan management of hip fracture by orthopedic surgery, consult pending Continue home medications, dietitian consult, continue Megace which she was taking at home Preventative health counseling performed for 17 minutes DVT prophylaxis with Lovenox History Interval history: Left hip pain is tolerable pain medications Review of systems Constitutional: No fevers, no malaise, no joint pains CVS: No chest pain, no orthopnea, no pedal edema GI: No abdominal pain, no diarrhea, no vomiting, no constipation Respiratory: No shortness of breath, no wheezing, no coughing Hospitalist Physical - Physical exam Narrative exam: General.: Mild distress HEENT: Moist mucous membranes, extraocular muscles intact, no lymphadenopathy Neck: supple Cardiac: S1-S2 heard Lungs: clear to auscultation bilaterally Abdomen: soft , nontender, nondistended, bowel sounds positive Extremities: no edema clubbing or cyanosis Skin: no rash or lesions Neurologic: no gross focal deficits Psych: calm, and cooperative - Constitutional Vitals: Temp Pulse Resp BP Pulse Ox 97.3 F L 82 18 94/59 94 03/27/19 11:19 03/27/19 11:19 03/27/19 11:19 03/27/19 11:19 03/27/19 11:19 General appearance: Present: cachectic Results - Labs CBC & Chem 7: 03/27/19 04:23 03/25/19 15:08 Labs: Laboratory Last Values WBC 4.8 K/mm3 (4.5-11.0) 03/25/19 19:02 RBC 4.13 M/mm3 (3.65-5.03) 03/25/19 19:02 Hgb 11.1 gm/dl (10.1-14.3) 03/27/19 04:23 Hct 32.9 % (30.3-42.9) 03/27/19 04:23 MCV 92 fl (79-97) 03/25/19 19:02 MCH 31 pg (28-32) 03/25/19 19:02 MCHC 33 % (30-34) 03/25/19 19:02 RDW 15.1 % (13.2-15.2) 03/25/19 19:02 Plt Count 97 K/mm3 (140-440) L 03/25/19 19:02 Lymph % (Auto) Traffic Operator 03/25/19 19:02 [place] % (Auto) Traffic Operator 03/25/19 19:02 Eos % (Auto) Traffic Operator 03/25/19 19:02 Baso % (Auto) Traffic Operator 03/25/19 19:02 Lymph # Traffic Operator 03/25/19 19:02 [place] # Traffic Operator 03/25/19 19:02 Eos # Traffic Operator 03/25/19 19:02 Baso # Traffic Operator 03/25/19 19:02 Add Manual Diff Complete 03/25/19 19: Total Counted 100 03/25/19 19:02 Seg Neutrophils % Traffic Operator 03/25/19 19:02 Seg Neuts % (Manual) 82.0 % (40.0-70.0) H 03/25/19 19:02 Band Neutrophils % 0 % 03/25/19 19:02 Lymphocytes % (Manual) 15.0 % (13.4-35.0) 03/25/19 19:02 Reactive Lymphs % (Man) 0 % 03/25/19 19:02 Monocytes % (Manual) 2.0 % (0.0-7.3) 03/25/19 19:02 Eosinophils % (Manual) 0 % (0.0-4.3) 03/25/19 19:02 Basophils % (Manual) 0 % (0.0-1.8) 03/25/19 19:02 Metamyelocytes % 0 % 03/25/19 19:02 Myelocytes % 1.0 % 03/25/19 19:02 Promyelocytes % 0 % 03/25/19 19:02 Blast Cells % 0 % 03/25/19 19:02 Nucleated RBC % Not Reportable 03/25/19 19:02 Seg Neutrophils # Traffic Operator 03/25/19 19:02 Seg Neutrophils # Man 3.9 K/mm3 (1.8-7.7) 03/25/19 19:02 Band Neutrophils # 0.0 K/mm3 03/25/19 19:02 Lymphocytes # (Manual) 0.7 K/mm3 (1.2-5.4) L 03/25/19 19:02 Abs React Lymphs (Man) 0.0 K/mm3 03/25/19 19:02 Monocytes # (Manual) 0.1 K/mm3 (0.0-0.8) 03/25/19 19:02 Eosinophils # (Manual) 0.0 K/mm3 (0.0-0.4) 03/25/19 19:02 Basophils # (Manual) 0.0 K/mm3 (0.0-0.1) 03/25/19 19:02 Metamyelocytes # 0.0 K/mm3 03/25/19 19:02 Myelocytes # 0.0 K/mm3 03/25/19 19:02 Promyelocytes # 0.0 K/mm3 03/25/19 19:02 Blast Cells # 0.0 K/mm3 03/25/19 19:02 WBC Morphology Not Reportable 03/25/19 19:02 Hypersegmented Neuts Not Reportable 03/25/19 19:02 Hyposegmented Neuts Not Reportable 03/25/19 19:02 Hypogranular Neuts Not Reportable 03/25/19 19:02 Smudge Cells Not Reportable 03/25/19 19:02 Toxic Granulation Not Reportable 03/25/19 19:02 Toxic Vacuolation Not Reportable 03/25/19 19:02 Dohle Bodies Not Reportable 03/25/19 19:02 Pelger-Huet Anomaly Not Reportable 03/25/19 19:02 Morena Rods Not Reportable 03/25/19 19:02 Platelet Estimate Appears decreased 03/25/19 19:02 Clumped Platelets Not Reportable 03/25/19 19:02 Plt Clumps, EDTA Not Reportable 03/25/19 19:02 Large Platelets Not Reportable 03/25/19 19:02 Giant Platelets Not Reportable 03/25/19 19:02 Platelet Satelliting Not Reportable 03/25/19 19:02 Plt Morphology Comment Not Reportable 03/25/19 19:02 RBC Morphology Not Reportable 03/25/19 19:02 Dimorphic RBCs Not Reportable 03/25/19 19:02 Polychromasia Not Reportable 03/25/19 19:02 Hypochromasia Not Reportable 03/25/19 19:02 Poikilocytosis Not Reportable 03/25/19 19:02 Anisocytosis 1+ 03/25/19 19:02 Microcytosis Not Reportable 03/25/19 19:02 Macrocytosis Not Reportable 03/25/19 19:02 Spherocytes Not Reportable 03/25/19 19:02 Pappenheimer Bodies Not Reportable 03/25/19 19:02 Sickle Cells Not Reportable 03/25/19 19:02 Target Cells Not Reportable 03/25/19 19:02 Tear Drop Cells Not Reportable 03/25/19 19:02 Ovalocytes 1+ 03/25/19 19:02 Helmet Cells Not Reportable 03/25/19 19:02 Marquez-Vancleave Bodies Not Reportable 03/25/19 19:02 [place] Rings Not Reportable 03/25/19 19:02 Comfort Cells Not Reportable 03/25/19 19:02 Bite Cells Not Reportable 03/25/19 19:02 Crenated Cell Not Reportable 03/25/19 19:02 Elliptocytes Not Reportable 03/25/19 19:02 Acanthocytes (Spur) Not Reportable 03/25/19 19:02 Rouleaux Not Reportable 03/25/19 19:02 Hemoglobin C Crystals Not Reportable 03/25/19 19:02 Schistocytes Not Reportable 03/25/19 19:02 Malaria parasites Not Reportable 03/25/19 19:02 Kojo Bodies Not Reportable 03/25/19 19:02 Hem Pathologist Commnt No 03/25/19 19:02 PT 12.9 Sec. (12.2-14.9) 03/25/19 15:08 INR 1.00 (0.87-1.13) 03/25/19 15:08 Sodium 140 mmol/L (137-145) 03/25/19 15:08 Potassium 4.0 mmol/L (3.6-5.0) 03/25/19 15:08 Chloride 109.0 mmol/L (98-107) H 03/25/19 15:08 Carbon Dioxide 17 mmol/L (22-30) L 03/25/19 15:08 Anion Gap 18 mmol/L 03/25/19 15:08 BUN 18 mg/dL (7-17) H 03/25/19 15:08 Creatinine 0.7 mg/dL (0.7-1.2) 03/25/19 15:08 Estimated GFR > 60 ml/min 03/25/19 15:08 BUN/Creatinine Ratio 26 % 03/25/19 15:08 Glucose 71 mg/dL (65-100) 03/25/19 15:08 POC Glucose 82 (70-105) 03/26/19 18:27 Calcium 8.9 mg/dL (8.4-10.2) 03/25/19 15:08 Total Bilirubin 0.40 mg/dL (0.1-1.2) 03/25/19 15:08 AST 23 units/L (5-40) 03/25/19 15:08 ALT 38 units/L (7-56) 03/25/19 15:08 Alkaline Phosphatase 43 units/L (35-129) 03/25/19 15:08 Total Protein 6.3 g/dL (6.3-8.2) 03/25/19 15:08 Albumin 3.2 g/dL (3.9-5) L 03/25/19 15:08 Albumin/Globulin Ratio 1.0 % 03/25/19 15:08 Urine Color Yellow (Yellow) 03/25/19 14:31 Urine Turbidity Clear (Clear) 03/25/19 14:31 Urine pH 5.0 (5.0-7.0) 03/25/19 14:31 Ur Specific [place] 1.030 (1.003-1.030) 03/25/19 14:31 Urine Protein 30 mg/dl mg/dL (Negative) 03/25/19 14:31 Urine Glucose (UA) Neg mg/dL (Negative) 03/25/19 14:31 Urine Ketones Tr mg/dL (Negative) 03/25/19 14:31 Urine Blood Neg (Negative) 03/25/19 14:31 Urine Nitrite Neg (Negative) 03/25/19 14:31 Urine Bilirubin Neg (Negative) 03/25/19 14:31 Urine Urobilinogen < 2.0 mg/dL (<2.0) 03/25/19 14:31 Ur Leukocyte Esterase Neg (Negative) 03/25/19 14:31 Urine WBC (Auto) 4.0 /HPF (0.0-6.0) 03/25/19 14:31 Urine RBC (Auto) 16.0 /HPF (0.0-6.0) 03/25/19 14:31 U Epithel Cells (Auto) < 1.0 /HPF (0-13.0) 03/25/19 14:31 Urine Mucus Few /HPF 03/25/19 14:31 Active Medications - Current Medications Current Medications: Generic Name Dose Route Start Last Admin Trade Name Freq PRN Reason Stop Dose Admin Acetaminophen 650 mg 03/25/19 14:26 03/26/19 21:41 Tylenol PO 650 mg Q4H PRN Administration Pain MILD(1-3)/Fever >100.5/[place] Acetaminophen/Hydrocodone Bitart 1 each 03/26/19 10:39 03/27/19 06:36 [place] 10/325 PO 1 each Q6H PRN Administration Pain, Moderate (4-6) Benztropine Mesylate 1 mg 03/26/19 14:00 03/27/19 10:26 Cogentin PO 1 mg QID MARK Administration Divalproex Sodium 500 mg 03/26/19 22:00 03/27/19 10:26 Depakote Er PO 500 mg BID MARK Administration Duloxetine HCl 60 mg 03/27/19 10:00 03/27/19 10:26 Cymbalta PO 60 mg QDAY MARK Administration Enoxaparin Sodium 40 mg 03/26/19 22:00 03/26/19 21:45 Lovenox SUB-Q 40 mg QDAY@2200 MARK Administration Sodium Chloride 1,000 mls @ 75 mls/hr 03/25/19 20:00 03/27/19 04:14 Nacl 0.9% 1000 Ml IV 75 mls/hr DIRECT MARK Administration Megestrol Acetate 40 mg 03/26/19 22:00 03/27/19 10:26 Megace PO 40 mg BID MARK Administration Mirtazapine 15 mg 03/26/19 22:00 03/26/19 21:46 Remeron PO 15 mg QHS MARK Administration Ondansetron HCl 4 mg 03/25/19 14:26 Zofran IV Q8H PRN Nausea And Vomiting Sodium Chloride 10 ml 03/25/19 22:00 03/27/19 10:26 Sodium Chloride Flush Syringe 10 Ml IV 10 ml BID MARK Administration Sodium Chloride 10 ml 03/25/19 14:26 Sodium Chloride Flush Syringe 10 Ml IV PRN PRN LINE FLUSH Nutrition/Malnutrition Assess - Dietary Evaluation Nutrition/Malnutrition Findings: Nutrition Notes Start: 03/26/19 09:10 Freq: Status: Active Protocol: Document 03/26/19 09:10 LP (Rec: 03/26/19 09:13 LP [id number]) Nutrition Notes Need for Assessment generated from: MD Order Initial or Follow up Brief Note Other Pertinent Diagnosis IBS, close hip fx, bipolar Current Diet NPO Subjective/Other Information Consult for Malnutrition. Pt denies recent wt changes. Pt states wt and appetite does fluctuate. Noted hx of eating dx. Nutrition Intervention Follow-Up By: 03/28/19 Additional Comments Follow for intakes
[2019-03-27] MEDS: MIRTAZAPINE 15 MG TAB PO SCH (23:06)
[2019-03-27] MEDS: ENOXAPARIN 40 MG/0.4 ML INJ SUB-Q SCH (23:06)
[2019-03-28] MEDS: DULoxetine 30 MG CAP PO SCH (09:02)
[2019-03-28] MEDS: BENZTROPINE 1 MG TAB PO SCH (09:02)
[2019-03-28] MEDS: DIVALPROEX ER 500 MG TAB PO SCH ×2 (09:02→21:46)
[2019-03-28] MEDS: MEGESTROL 40 MG TAB PO SCH ×2 (09:02→21:46)
--- NOTE | 2019-03-28 11:44 | Progress Note ---
Subjective Date of service: 03/28/19 Objective - Constitutional Vitals: Vital Signs - 12hr 03/28/19 03/28/19 03:59 07:00 Temperature 97.7 F 98.1 F Pulse Rate 84 87 Respiratory 18 20 Rate Blood Pressure 123/80 124/70 O2 Sat by Pulse 91 98 Oximetry - Labs CBC & Chem 7: 03/27/19 04:23 03/25/19 15:08
--- NOTE | 2019-03-28 13:25 | Progress Note ---
Assessment and Plan s/p bipolar hip replacement doing ok continue PT and rehab Subjective Date of service: 03/28/19 Interval history: c/o incisional pain, PT started... Objective Vital signs: Vital Signs - 12hr 03/28/19 03/28/19 03/28/19 03:59 07:00 11:04 Temperature 97.7 F 98.1 F 98.3 F Pulse Rate 84 87 105 H Respiratory 18 20 20 Rate Blood Pressure 123/80 124/70 106/73 O2 Sat by Pulse 91 98 99 Oximetry Incision: healing, clean and dry Weight bearing status: as tolerated - Labs CBC & BMP: 03/27/19 04:23 03/25/19 15:08
--- NOTE | 2019-03-28 16:37 | XRay Report ---
XR hip 2-3V LT INDICATION / CLINICAL INFORMATION: Left hip pain after fall. COMPARISON: Previous hip radiographs on 03/26/2019. FINDINGS: BONES/JOINT(S): Unchanged appearance of left hip arthroplasty. No periprosthetic fracture. No acute f racture in the visualized pelvis. SOFT TISSUES: No significant abnormality. ADDITIONAL FINDINGS: None. Signer Name: Laurent Sparks MD Signed: 03/28/2019 4:32 PM Workstation Name: [id number]
--- NOTE | 2019-03-28 21:31 | Progress Note ---
Assessment and Plan 59-year-old woman with history of bipolar/schizoaffective disorder, IBS, severe malnutrition who presents after a mechanical fall after which she broke her left hip. Diagnosis Left hip fracture Schizoaffective disorder IBS Moderate to severe malnutrition, BMI 19, albumin of 3.2 Dehydration/metabolic acidosis Plan Status post left hip replacement PT and OT Continue home medications antipsychotic, dietitian consult, Recheck a.m. labs hold Megace because of tendency to form DVT DVT prophylaxis with Lovenox Subjective Principal diagnosis: right hip fracture, tenderness, Interval history: Patient seen and examined. Laying Quietly in bed. Pain well controlled. Objective - Exam Narrative Exam: Constitutional: Well-nourished well-developed. In no distress Head: Normocephalic atraumatic Eyes: Pupils are equal round and reactive to light Nose: No enlarged turbinates, no septal deviation. Mouth: Moist mucous membranes. Neck: Supple no thyromegaly. No bruit. No JVD Heart: Regular rate and rhythm, S1-S2 normal. No rubs murmurs or gallop Lungs: Clear to auscultation bilaterally. no rales or rhonchi Abdomen: Soft, nontender. Bowel sound are present. Extremities: No edema, no cyanosis, no clubbing. Neuro: Alert oriented Oriented x3. No focal sensory or motor deficit. Skin: No rashes or hyperpigmented spots Musculoskeletal system: No joint pain or swelling Hematological: No petechia or subcutanous hemorrhages. Immunological: No multiple septic spots on the skin Lymphatic: No generalized lymphadenopathy Psychiatry: Euthymic. Calm. - Constitutional Vitals: Vital Signs - 12hr 03/28/19 03/28/19 03/28/19 11:04 13:50 17:42 Temperature 98.3 F 98.4 F 98.1 F Pulse Rate 105 H 100 H 64 Respiratory 20 21 20 Rate Blood Pressure 106/73 Blood Pressure 110/72 113/79 [Left] O2 Sat by Pulse 99 98 Oximetry 03/28/19 19:56 Temperature 99.0 F Pulse Rate 92 H Respiratory 18 Rate Blood Pressure 106/65 Blood Pressure [Left] O2 Sat by Pulse 99 Oximetry - Labs CBC & Chem 7: 03/27/19 04:23 03/25/19 15:08
[2019-03-28] MEDS: MIRTAZAPINE 15 MG TAB PO SCH (21:46)
[2019-03-28] MEDS: ENOXAPARIN 40 MG/0.4 ML INJ SUB-Q SCH (21:46)
[2019-03-29 05:38] LABS: Basophils % (Auto) 0.2 % (0.0-1.8); Eosinophils % (Auto) 0.7 % (0.0-4.3); Hematocrit 29.9 % (30.3-42.9); Hemoglobin 10.1 gm/dl (10.1-14.3); Lymphocytes # (Auto) 0.7 K/mm3 (1.2-5.4); Lymphocytes % (Auto) 12.2 % (13.4-35.0); Mean Corpuscular HGB Conc 34 % (30-34); Mean Corpuscular Volume 92 fl (79-97); Monocytes # (Auto) 0.4 K/mm3 (0.0-0.8); Monocytes % (Auto) 6.8 % (0.0-7.3); Red Blood Count 3.26 M/mm3 (3.65-5.03); Red Cell Distribution Width 14.7 % (13.2-15.2)
[2019-03-29 05:40] LABS: Platelet Count 94 K/mm3 (140-440)
[2019-03-29 06:24] LABS: Alanine Aminotransferase 13 units/L (7-56); Albumin 2.3 g/dL (3.9-5); BUN/Creatinine Ratio 35; Blood Urea Nitrogen 14 mg/dL (7-17); Calcium 8.4 mg/dL (8.4-10.2); Hemolysis Index 2
[2019-03-29] MEDS ORDERED: HALOPERIDOL DECANOATE 50 MG/ML IM SCH (10:00)
[2019-03-29] MEDS ORDERED: POTASSIUM CHLORIDE ER 20 MEQ TAB PO SCH (10:00)
[2019-03-29] MEDS: MEGESTROL 40 MG TAB PO SCH (10:20)
[2019-03-29] MEDS: DULoxetine 30 MG CAP PO SCH (10:20)
[2019-03-29] MEDS: BENZTROPINE 1 MG TAB PO SCH (10:20)
[2019-03-29] MEDS: DIVALPROEX ER 500 MG TAB PO SCH (10:20)
--- NOTE | 2019-03-29 12:44 | Discharge Summary ---
Providers - Providers Date of Admission: 03/25/19 14:26 Date of discharge: 03/29/19 Attending physician: SONJA MILLER 03/25/19 14:17 Consult to Physician [CONS] Urgent Comment: Consulting Provider: RAUL HUFFMAN Physician Instructions: Reason For Exam: fracture of left hip 03/25/19 20:27 Consult to Dietitian/Nutrition [CONS] Routine Physician Instructions: Reason For Exam: Reason for Consult: Malnutrition 03/26/19 12:50 Consult to Case Management [CONS] Routine Services Needed at Discharge: Physical Therapy Student Education Specialist Notified:: cm notified 03/26/19 12:52 Physical Therapy Evaluation and Treat [CONS] Routine Comment: Reason For Exam: post op evaluation Weight bearing status?: Full wt bearing Assistive devices?: Yes If so list: Walker [facility] Hospital[facility] Condition: Fair Hospital course: Patient is 59 YO Female with Anxiety, Depression, Bipolar Disorder, Schizoaffective Disorder, IBS, Severe Malnutrition presents to ED for evaluation. Pt states that she missed a step while walking into her garage and subsequently fell onto the floor. She complained of left hip pain. Patient was seen and evaluated in ED and found to have Left Femoral Neck fracture, Severl malnutrition, Acidosis, Volume Depletion. She was admitted, evaluated by Orthopedic Surgeon, and had left bipolar hip replacement on 03/26/19. Post-op she had Physical therapy. She improved, arrangements made and she was discharged home with home health on 03/29/19. Total time spent on discharge, 33 mins Disposition: [id number] HOME UNDER HOME HLTH - Discharge Diagnoses (1) Schizoaffective disorder Status: Acute (2) S/P total hip arthroplasty Status: Acute (3) Closed left hip fracture Status: Acute Qualifiers: Encounter type: initial encounter Qualified Code(s): S72.002A - Fracture of unspecified part of neck of left femur, initial encounter for closed fracture (4) Severe malnutrition Status: Acute (5) Hypokalemia Status: Acute (6) Hypophosphatemia Status: Acute (7) Dehydration Status: Acute (8) Metabolic acidosis Status: Acute Core Measure Documentation - Palliative Care Palliative Care/ Comfort Measures: Not Applicable - Core Measures Any of the following diagnoses?: none Exam - Constitutional Vitals: Temp Pulse Resp BP Pulse Ox 98.4 F 79 18 119/68 96 10/09/19 07:34 03/29/19 07:34 03/29/19 07:34 03/29/19 07:34 03/29/19 07:34 Plan Diet: regular Special Instructions: physical therapy, home health RN Plan of Treatment: 1.Follow up with PCP in 1 week. 2.Follow up with Danial Ku in 1 week. 3.Home health physical therapy 4.Home Health Nurse Follow up with: MARTIN SEGURAMADISON MD FERMIN [Primary Care Provider] - 7 Days Prescriptions: Apixaban [Eliquis] 2.5 mg PO BID 35 Days tablet HYDROcodone/APAP 10-325 [[place] 10-325 mg TAB] 1 each PO Q6H PRN #20 tablet PRN Reason: Pain, Moderate (4-6) Famotidine [Pepcid] 20 mg PO BID 60 Days tablet
[2019-03-29 12:53] VITALS: BP 108/65
== END 2019-03-29 16:55 | disposition home health service (06) | DRG 469 ==
LOC: ED 11:50 → 3B-SURG 14:26
PROVIDERS: ADMIT Internal Medicine; ATTEND Internal Medicine
PROC: 0SRS0JZ Replacement of Left Hip Joint, Femoral Surface with Synthetic Substitute, Open Approach (ICD-10-PCS; principal; 2019-03-26)
DX: S72.092A Other fracture of head and neck of left femur, initial encounter for closed fracture (principal); E43 Unspecified severe protein-calorie malnutrition; E87.2 Acidosis; Z68.1 Body mass index [BMI] 19.9 or less, adult; E86.9 Volume depletion, unspecified; K58.9 Irritable bowel syndrome, unspecified; W10.8XXA Fall (on) (from) other stairs and steps, initial encounter; F41.9 Anxiety disorder, unspecified; F31.9 Bipolar disorder, unspecified; F25.9 Schizoaffective disorder, unspecified; Z90.49 Acquired absence of other specified parts of digestive tract; Z90.89 Acquired absence of other organs; Z79.899 Other long term (current) drug therapy; Z88.8 Allergy status to other drugs, medicaments and biological substances; Y93.89 Activity, other specified; Y92.59 Other trade areas as the place of occurrence of the external cause; Y99.8 Other external cause status; Z87.891 Personal history of nicotine dependence; Z85.41 Personal history of malignant neoplasm of cervix uteri
CPT/HCPCS: 36415; 70450; 80053; 81001; 82962; 83735; 84100; 85007; 85014; 85018; 85025; 85610; 88304; 88311; 96374; 96375; G0378; C1776; J0690; J1170; J1650; J1885; J2270; J2370; J2405; J2704; J7030; J7050

== ENCOUNTER 2019-04-27 15:19 | Observation (INO) | payer MEDICARE ==
--- NOTE | 2019-04-27 16:04 | Emergency Department Report ---
<JOSÉ MIGUEL OCHOA - Last Filed: 04/27/19 18:12> ED General Adult HPI - General Chief complaint: Weakness Stated complaint: R SIDE WEAKNESS Time Seen by Provider: 04/27/19 15:46 Source: EMS Mode of arrival: Stretcher Limitations: No Limitations - History of Present Illness Initial comments: Patient is a 59-year-old female who presents the emergency room with complaints of right-sided weakness that began 2 days ago. The patient's caregiver states that she is leaning towards the right side whenever she is walking or sitting up. The caregiver also states that she chronically has ptosis of the left eye but it has worsened in the last 2 days. The patient states that she has blurred vision in the left eye. Patient denies any headache, chest pain, shortness of breath, nausea, vomiting, palpitations, leg swelling, any other symptoms. The caregiver states that a month ago she had a fracture of her left hip and had surgery at that time. The caregiver only reports a history of bipolar disorder. Severity scale (0 -10): 0 - Related Data Home Medications Medication Instructions Recorded Confirmed Last Taken Benztropine [Cogentin] 1 mg PO DAILY 03/25/19 03/27/19 Unknown Divalproex ER [Depakote ER] 500 mg PO BID 03/25/19 03/25/19 Unknown Duloxetine HCl 60 mg PO QDAY 03/25/19 03/25/19 Unknown Mirtazapine [Remeron 15mg TAB] 15 mg PO QHS 03/25/19 03/25/19 Unknown Haloperidol 50 mg IM Q4W 03/27/19 03/27/19 02/24/19 Previous Rx's Medication Instructions Recorded Last Taken Type Apixaban [Eliquis] 2.5 mg PO BID 35 Days tablet 03/29/19 Unknown Rx Famotidine [Pepcid] 20 mg PO BID 60 Days tablet 03/29/19 Unknown Rx HYDROcodone/APAP 10-325 [[place] 1 each PO Q6H PRN #20 tablet 03/29/19 Unknown Rx 10-325 mg TAB] Allergies Allergy/AdvReac Type Severity Reaction Status Date / Time aripiprazole [From Abilify] Allergy Unknown Verified 11/17/18 18:36 paliperidone [From Invega] Allergy Unknown Verified 11/17/18 18:36 lactose AdvReac Unknown Verified 03/26/19 09:11 ED Review of Systems Comment: All other systems reviewed and negative ED Past Medical Hx - Past Medical History Previous Medical History?: Yes Hx Hypertension: No ("Hole in heart" asymptomatic and does not see disability case manager) Hx Congestive Heart Failure: No Hx Seizures: No Hx Psychiatric Treatment: Yes (anxiety and depression Schizo-affective, bipolar) Hx Asthma: Yes Hx Dementia: No Hx HIV: No Additional medical history: cdiff. hypoglycemia. rheumatic fever. Irritable bowel syndrome - Surgical History Past Surgical History?: Yes Hx Cholecystectomy: Yes Additional Surgical History: tonsil. cervical cancer surgery - Social History Smoking Status: Former Smoker - Medications Home Medications: Home Medications Medication Instructions Recorded Confirmed Last Taken Type Benztropine [Cogentin] 1 mg PO DAILY 03/25/19 03/27/19 Unknown History Divalproex ER [Depakote ER] 500 mg PO BID 03/25/19 03/25/19 Unknown History Duloxetine HCl 60 mg PO QDAY 03/25/19 03/25/19 Unknown History Mirtazapine [Remeron 15mg TAB] 15 mg PO QHS 03/25/19 03/25/19 Unknown History Haloperidol 50 mg IM Q4W 03/27/19 03/27/19 02/24/19 History Apixaban [Eliquis] 2.5 mg PO BID 35 Days tablet 03/29/19 Unknown Rx Famotidine [Pepcid] 20 mg PO BID 60 Days tablet 03/29/19 Unknown Rx HYDROcodone/APAP 10-325 [[place] 1 each PO Q6H PRN #20 tablet 03/29/19 Unknown Rx 10-325 mg TAB] ED Physical Exam - General Limitations: No Limitations General appearance: alert, in no apparent distress - Head Head exam: Present: atraumatic, normocephalic - Eye Eye exam: Present: PERRL, other (ptsosis of the left eyelid) - ENT ENT exam: Present: mucous membranes moist - Respiratory Respiratory exam: Present: normal lung sounds bilaterally. Absent: respiratory distress, wheezes, rales, rhonchi, stridor, chest wall tenderness, accessory muscle use, decreased breath sounds, prolonged expiratory - Cardiovascular Cardiovascular Exam: Present: regular rate, normal rhythm, normal heart sounds. Absent: systolic murmur, diastolic murmur, rubs, gallop - GI/Abdominal GI/Abdominal exam: Present: soft, normal bowel sounds. Absent: distended, tenderness, guarding, rebound, rigid - Neurological Exam Neurological exam: Present: alert, oriented X3, other (equal fast food manager strength, 5/5 muscle strength in the BUE, ptsosis of the left eyelid, left sided facial asymme try with down curve of the left side of the lip, pt became agitated and refused to complete rest of neuro physical examination) - Psychiatric Psychiatric exam: Present: normal affect, agitated - Skin Skin exam: Present: warm, dry, intact ED Medical Decision Making - Lab Data Result diagrams: 04/27/19 15:50 04/27/19 15:50 - EKG Data EKG shows normal: sinus rhythm, axis, intervals, QRS complexes, ST-T waves Rate: normal - Medical Decision Making s/o Dr. Chen at 6:[address] head ED Disposition Clinical Impression: CVA (cerebral vascular accident) Disposition: OP ADMIT IP TO THIS HOSP Condition: Fair Referrals: PRIMARY CARE, [Primary Care Provider] - 3-5 Days <REAGAN CHEN S - Last Filed: 04/27/19 19:00> ED Review of Systems ROS: Stated complaint: R SIDE WEAKNESS Other details as noted in HPI ED Course Vital Signs 04/27/19 04/27/19 04/27/19 15:43 16:43 18:00 Pulse Rate 90 86 81 Respiratory 18 12 Rate Blood Pressure 117/76 120/71 130/72 [Left] O2 Sat by Pulse 99 100 Oximetry ED Medical Decision Making - Lab Data Result diagrams: 04/27/19 15:50 04/27/19 15:50 Critical care attestation.: If time is entered above; I have spent that time in minutes in the direct care of this critically ill patient, excluding procedure time. ED Disposition Is pt being admited?: Yes Time of Disposition: 19:00
[2019-04-27 16:19] LABS: Hematocrit 35.5 % (30.3-42.9); Hemoglobin 11.5 gm/dl (10.1-14.3); INR 0.83 (0.87-1.13); Mean Corpuscular HGB Conc 32 % (30-34); Mean Corpuscular Volume 94 fl (79-97); Red Blood Count 3.77 M/mm3 (3.65-5.03); Red Cell Distribution Width 17.1 % (13.2-15.2)
[2019-04-27 16:20] LABS: Platelet Count 127 K/mm3 (140-440)
[2019-04-27 16:21] LABS: Partial Thromboplastin Time 22.9 Sec. (24.2-36.6); Thrombin Time 14.8 Sec. (15.1-19.6)
[2019-04-27 16:39] LABS: Creatine Kinase MB < 1.0 ng/mL (0.0-4.0)
[2019-04-27 16:44] LABS: Albumin 3.4 g/dL (3.9-5); BUN/Creatinine Ratio 18; Blood Urea Nitrogen 11 mg/dL (7-17); Hemolysis Index 25
[2019-04-27 16:45] LABS: Alanine Aminotransferase < 5 units/L (7-56)
--- NOTE | 2019-04-27 18:20 | Cat Scan Report ---
CT head/brain wo con INDICATION / CLINICAL INFORMATION: 59 years Female; Stroke symptoms. TECHNIQUE: Routine CT head without contrast. All CT scans at this location are performed using CT dos e reduction for ALARA by means of automated exposure control. COMPARISON: The study is compared to the previous CT of 03/25/2019. FINDINGS: BRAIN / INTRACRANIAL CONTENTS: There is mild cerebral white matter disease most consistent with micro vascular angiopathy at. The findings appear to correlate with previous CT. There is no CT evidence of acute intracranial hemorrhage or significant mass effect. There is continued mild cerebral atrophy with associated mild prominence of the ventricular system. ORBITS: No significant abnormality of visualized orbits. SINUSES / MASTOIDS: No significant abnormality the visualized paranasal sinuses or mastoid air cells. CRANIOCERVICAL JUNCTION: No significant abnormality. ADDITIONAL FINDINGS: None. IMPRESSION: 1. There is continued mild microvascular angiopathy without CT evidence of acute intracranial hemorrh age. Signer Name: Tariq Lim MD Signed: 04/27/2019 6:15 PM Workstation Name: [id number]
[2019-04-27 19:04] LABS: Bilirubin,Urine NEG (Negative); Blood,Urine NEG (Negative); Color,Urine Yellow (Yellow); Mucus,Urine FEW /HPF; Protein,Urine <15 mg/dL mg/dL (Negative)
[2019-04-27 19:15] LABS: Amphetamine Screen,Urine PRESUMPTIVE NEGATIVE; Benzodiazepines Screen,Urine PRESUMPTIVE NEGATIVE; Cannabinoid Screen,Urine PRESUMPTIVE NEGATIVE; Cocaine Screen,Urine PRESUMPTIVE NEGATIVE; Methadone Screen,Urine PRESUMPTIVE NEGATIVE; Opiate Screen,Urine PRESUMPTIVE NEGATIVE
--- NOTE | 2019-04-27 22:06 | History and Physical Report ---
History of Present Illness Date of examination: 04/28/19 Date of admission: 04/27/19 19:00 History of present illness: Very difficult to obtain a history from patient, the history was from the chart. Unable to reach caregiver. This patient is from a long term, she has a history of anxiety, depression, schizoaffective disorder was brought to the emergency room for evaluation of right-sided weakness number review of systems unobtainable PAST MEDICAL HISTORY:anxiety, depression, schizoaffective disorder PAST SURGICAL HISTORY: Unknown FAMILY HISTORY:Unknown SOCIAL HISTORY: Unknown Medications and Allergies Allergies Allergy/AdvReac Type Severity Reaction Status Date / Time aripiprazole [From Abilify] Allergy Unknown Verified 11/17/18 18:36 paliperidone [From Invega] Allergy Unknown Verified 11/17/18 18:36 lactose AdvReac Unknown Verified 03/26/19 09:11 Home Medications Medication Instructions Recorded Confirmed Last Taken Type Benztropine [Cogentin] 1 mg PO DAILY 03/25/19 04/27/19 Unknown History Divalproex ER [Depakote ER] 500 mg PO BID 03/25/19 04/27/19 Unknown History Duloxetine HCl 60 mg PO QDAY 03/25/19 04/27/19 Unknown History Mirtazapine [Remeron 15mg TAB] 15 mg PO QHS 03/25/19 04/27/19 Unknown History Haloperidol 50 mg IM Q4W 03/27/19 04/27/19 02/24/19 History Apixaban [Eliquis] 2.5 mg PO BID 35 Days tablet 03/29/19 04/27/19 Unknown Rx Famotidine [Pepcid] 20 mg PO BID 60 Days tablet 03/29/19 04/27/19 Unknown Rx HYDROcodone/APAP 10-325 [[place] 1 each PO Q6H PRN #20 tablet 03/29/19 04/27/19 Unknown Rx 10-325 mg TAB] Exam - Physical Exam Narrative exam: General Apperance: The patient sitting in bed no acute distress HEENT: Normocephalic, atraumatic. Pupils equally round and reactive to light, extraocular movement intact, and no sclericterus or JVD or thyromegaly or nodule. Neck supple, no carotid bruit, mucous membranes moist, no exudate or erythema Heart: S1-S2, regular is rhythm Lungs: Clear to auscultation bilaterally, breathing comfortable Abdomen: Positive bowel sounds, soft, nontender, nondistended, no organomegaly Extremities: No edema cyanosis clubbing Skin: no rash, nodule, warm and dry Neuro:difficult to assess - Constitutional Vitals: Temp Pulse Resp BP Pulse Ox 98.6 F 80 14 110/65 97 04/27/19 19:15 04/27/19 20:30 04/27/19 20:30 04/27/19 20:30 04/27/19 19:15 Results - Labs CBC & Chem 7: 04/27/19 15:50 04/27/19 15:50 Labs: Abnormal lab results 04/27/19 04/27/19 04/27/19 Range/Units 15:50 15:50 15:50 WBC 3.7 L (4.5-11.0) K/mm3 RDW 17.1 H (13.2-15.2) % Plt Count 127 L (140-440) K/mm3 PT 11.4 L (12.2-14.9) Sec. INR 0.83 L (0.87-1.13) APTT 22.9 L (24.2-36.6) Sec. Thrombin Time 14.8 L (15.1-19.6) Sec. Chloride 111.0 H (98-107) mmol/L Carbon Dioxide 17 L (22-30) mmol/L Creatinine 0.6 L (0.7-1.2) mg/dL POC Glucose (70-105) ALT < 5 L (7-56) units/L Albumin 3.4 L (3.9-5) g/dL 04/27/19 Range/Units 16:58 WBC (4.5-11.0) K/mm3 RDW (13.2-15.2) % Plt Count (140-440) K/mm3 PT (12.2-14.9) Sec. INR (0.87-1.13) APTT (24.2-36.6) Sec. Thrombin Time (15.1-19.6) Sec. Chloride (98-107) mmol/L Carbon Dioxide (22-30) mmol/L Creatinine (0.7-1.2) mg/dL POC Glucose 107 H (70-105) ALT (7-56) units/L Albumin (3.9-5) g/dL - Imaging and Cardiology EKG: image reviewed CT Scan - head: report reviewed Assessment and Plan Assessment possible CVA anxiety depression schizoaffective disorder Thrombocytopenia Plan Admit to medicine Obtain MRI of the head, and neck, echo Start aspirin, statin IV hydralazine as needed for blood pressure control Consult neurology, physical and occupational, speech therapy DVT prophylaxis
[2019-04-28] MEDS ORDERED: ACETAMINOPHEN 325 MG TAB PO PRN (01:21)
[2019-04-28] MEDS ORDERED: MAGNESIUM HYDROXIDE (MOM) ORAL LIQD UDC PO PRN (01:21)
[2019-04-28] MEDS ORDERED: ONDANSETRON 4 MG/2 ML INJ IV PRN (01:21)
[2019-04-28] MEDS ORDERED: ASPIRIN 325 MG TAB PO SCH (10:00)
--- NOTE | 2019-04-28 11:08 | Vascular Lab Report ---
"DUPLEX DOPPLER ULTRASOUND CAROTID, BILATERAL INDICATION: stroke. FINDINGS: RIGHT CAROTID: No significant atherosclerotic plaque. Right ICA peak systolic velocity: 96 cm/sec. Right Vertebral Artery: Antegrade flow. LEFT CAROTID: No significant atherosclerotic plaque. Left ICA peak systolic velocity: 106 cm/sec. Left Vertebral Artery: Antegrade flow. IMPRESSION: 1. Right Internal Carotid Artery: Less than 50% diameter stenosis. 2. Left Internal Carotid Artery: Less than 50% diameter stenosis. Velocity criteria are extrapolated from diameter data as defined by the Society of Radiologists in [facility] Consensus Conference, Radiology 2003; 229;340-346. Degree of Stenosis (%) || ICA PSV (cm/sec) || Plaque estimate (%) || ICA/CCA PSV Ratio Normal <125 None <2.0 <50 <125 <50 <2.0 50-69 125-230 50 2.0-4.0 70 but less than 100 >230 50 >4.0 Near occlusion High, low, or none visible variable Total occlusion None visible; no lumen N/A Signer Name: Jose Jacques MD Signed: 04/28/2019 11:03 AM Workstation Name: [id number]"
--- NOTE | 2019-04-28 11:52 | Consultation ---
History of Present Illness Consult date: 04/28/19 Consult reason: atrial fibrillation History of present illness: This is a 59-year old woman with a history of schizoaffective disorder. Patient was discharged from this hospital last month with a left hip fracture following a fall at home. Post operatively she was place on low dose eliquis therapy. Patient is now admitted with suspected CVA. Neurology evaluation and workup in pending. A cardiac consultation has been requested for atrial fibrillation. Patient denies prior cardiac history and had no prior cardiac workup. Her presenting ECG is a normal sinus rhythm. Review of telemetry strips shows sinus rhythm with occasional PVCs. There is no evidence of atrial fibrillation. Medications and Allergies Allergies Allergy/AdvReac Type Severity Reaction Status Date / Time aripiprazole [From Abilify] Allergy Unknown Verified 11/17/18 18:36 paliperidone [From Invega] Allergy Unknown Verified 11/17/18 18:36 lactose AdvReac Unknown Verified 03/26/19 09:11 Home Medications Medication Instructions Recorded Confirmed Last Taken Type Benztropine [Cogentin] 1 mg PO DAILY 03/25/19 04/27/19 Unknown History Divalproex ER [Depakote ER] 500 mg PO BID 03/25/19 04/27/19 Unknown History Duloxetine HCl 60 mg PO QDAY 03/25/19 04/27/19 Unknown History Mirtazapine [Remeron 15mg TAB] 15 mg PO QHS 03/25/19 04/27/19 Unknown History Haloperidol 50 mg IM Q4W 03/27/19 04/27/19 02/24/19 History Apixaban [Eliquis] 2.5 mg PO BID 35 Days tablet 03/29/19 04/27/19 Unknown Rx Famotidine [Pepcid] 20 mg PO BID 60 Days tablet 03/29/19 04/27/19 Unknown Rx HYDROcodone/APAP 10-325 [[place] 1 each PO Q6H PRN #20 tablet 03/29/19 04/27/19 Unknown Rx 10-325 mg TAB] Active Meds: Active Medications Acetaminophen (Tylenol) 650 mg PO Q4H PRN PRN Reason: Pain, Mild (1-3) Aspirin (Aspirin) 325 mg PO QDAY MARK Last Admin: 04/28/19 10:26 Dose: 325 mg Documented by: Bisacodyl (Dulcolax) 10 mg ND QDAY PRN PRN Reason: Constipation Magnesium Hydroxide (Milk Of Magnesia) 30 ml PO Q4H PRN PRN Reason: Constipation Ondansetron HCl (Zofran) 4 mg IV Q8H PRN PRN Reason: Nausea And Vomiting Pravastatin Sodium (Pravachol) 40 mg PO QHS MARK Sodium Chloride (Sodium Chloride Flush Syringe 10 Ml) 10 ml IV PRN PRN PRN Reason: LINE FLUSH Last Admin: 04/28/19 10:26 Dose: 10 ml Documented by: Physical Examination Vital Signs Pulse Resp BP Pulse Ox 90 18 117/76 99 04/27/19 15:43 04/27/19 15:43 04/27/19 15:43 04/27/19 15:43 General appearance: no acute distress HEENT: Positive: PERRL Neck: Positive: trachea midline Cardiac: Positive: Reg Rate and Rhythm Lungs: Positive: Decreased Breath Sounds Neuro: Positive: Weakness Results 04/27/19 15:50 04/27/19 15:50 Cardiac Enzymes 04/27/19 Range/Units 15:50 AST 20 (5-40) units/L CK-MB (CK-2) < 1.0 (0.0-4.0) ng/mL Coagulation 04/27/19 Range/Units 15:50 PT 11.4 L (12.2-14.9) Sec. INR 0.83 L (0.87-1.13) APTT 22.9 L (24.2-36.6) Sec. CBC 04/27/19 Range/Units 15:50 WBC 3.7 L (4.5-11.0) K/mm3 RBC 3.77 (3.65-5.03) M/mm3 Hgb 11.5 (10.1-14.3) gm/dl Hct 35.5 (30.3-42.9) % Plt Count 127 L (140-440) K/mm3 Lymph # [id number] Operator Burt # [id number] Operator Eos # [id number] Operator Baso # [id number] Operator Comprehensive Metabolic Panel 04/27/19 Range/Units 15:50 Sodium 143 (137-145) mmol/L Potassium 5.0 (3.6-5.0) mmol/L Chloride 111.0 H (98-107) mmol/L Carbon Dioxide 17 L (22-30) mmol/L BUN 11 (7-17) mg/dL Creatinine 0.6 L (0.7-1.2) mg/dL Glucose 90 (65-100) mg/dL Calcium 9.0 (8.4-10.2) mg/dL AST 20 (5-40) units/L ALT < 5 L (7-56) units/L Alkaline Phosphatase 107 (35-129) units/L Total Protein 6.4 (6.3-8.2) g/dL Albumin 3.4 L (3.9-5) g/dL Assessment and Plan Suspected CVA Recent left hip fracture Her presenting ECG is a normal sinus rhythm. Review of telemetry strips shows sinus rhythm with occasional PVCs. There is no evidence of atrial fibrillation. We will obtain an echocardiogram for LVEF assessment.
[2019-04-28 12:28] LABS: Chol/HDL Ratio 2.66 %
--- NOTE | 2019-04-28 13:40 | Magnetic Resonance Report ---
MRI BRAIN 04/28/2019 INDICATION / CLINICAL INFORMATION: stroke. Left-sided weakness TECHNIQUE: Multiplanar, multisequence MR images of the brain were obtained. COMPARISON: CT brain 04/28/2019 FINDINGS: BRAIN / INTRACRANIAL CONTENTS: Unenhanced MR images of the brain demonstrate no evidence of acute int racranial abnormality. Ventricles and sulci are prominent in size, consistent with prominent diffuse cerebral atrophy, more than is typically seen in a patient of this age. A few scattered microangiopathic white matter T2 weighted hyperintensities are noted. There is no MR evidence of acute ischemic injury, hemorrhage, or mass. There are no abnormal extra-ax ial fluid collections. EXTRACRANIAL: Unremarkable CRANIOCERVICAL JUNCTION: No significant abnormality. VASCULAR FLOW-VOIDS: No significant abnormality. IMPRESSION: No acute abnormality. Diffuse cerebral atrophy. Signer Name: Emery Rivers MD Signed: 04/28/2019 1:35 PM Workstation Name: [id number]
--- NOTE | 2019-04-28 15:43 | Progress Note ---
Assessment and Plan Assessment and plan: Patient was admitted for possible CVA -CVA workup is negative -Patient was evaluated by OT and recommend rehabilitation -Pending PT evaluation -Patient is on aspirin and statin -Neurology evaluation is pending anxiety depression schizoaffective disorder -Resume medications Thrombocytopenia - We'll continue to monitor Disposition; patient need rehabilitation History Interval history: Patient seen and evaluated this morning, patient was alert and oriented, patient didn't have any focal weakness. Hospitalist Physical - Physical exam Narrative exam: Not in cardiopulmonary distress. The patient appeared well nourished and normally developed. Vital signs as documented. Head exam is unremarkable. No scleral icterus . Neck is without jugular venous distension, thyromegaly, or carotid bruits. Lungs are clear to auscultation. Cardiac exam reveals regular rate and Rhythm. Abdominal exam reveals normal bowel sounds, nontender, no organomegaly. Extremities are nonedematous and both femoral and pedal pulses are normal. 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 No focal weakness. - Constitutional Vitals: Temp Pulse Resp BP Pulse Ox 97.8 F 73 20 118/69 97 04/28/19 08:00 04/28/19 13:39 04/28/19 13:39 04/28/19 08:00 04/28/19 13:39 General appearance: Present: no acute distress Results - Labs CBC & Chem 7: 04/27/19 15:50 04/27/19 15:50 Labs: Laboratory Last Values WBC 3.7 K/mm3 (4.5-11.0) L 04/27/19 15:50 RBC 3.77 M/mm3 (3.65-5.03) 04/27/19 15:50 Hgb 11.5 gm/dl (10.1-14.3) 04/27/19 15:50 Hct 35.5 % (30.3-42.9) 04/27/19 15:50 MCV 94 fl (79-97) 04/27/19 15:50 MCH 31 pg (28-32) 04/27/19 15:50 MCHC 32 % (30-34) 04/27/19 15:50 RDW 17.1 % (13.2-15.2) H 04/27/19 15:50 Plt Count 127 K/mm3 (140-440) L 04/27/19 15:50 Lymph % (Auto) [employer] 04/27/19 15:50 [place] % (Auto) [employer] 04/27/19 15:50 Eos % (Auto) [employer] 04/27/19 15:50 Baso % (Auto) [employer] 04/27/19 15:50 Lymph # [employer] 04/27/19 15:50 [place] # [employer] 04/27/19 15:50 Eos # [employer] 04/27/19 15:50 Baso # [employer] 04/27/19 15:50 Seg Neutrophils % [employer] 04/27/19 15:50 Seg Neutrophils # [employer] 04/27/19 15:50 PT 11.4 Sec. (12.2-14.9) L 04/27/19 15:50 INR 0.83 (0.87-1.13) L 04/27/19 15:50 APTT 22.9 Sec. (24.2-36.6) L 04/27/19 15:50 Thrombin Time 14.8 Sec. (15.1-19.6) L 04/27/19 15:50 Sodium 143 mmol/L (137-145) 04/27/19 15:50 Potassium 5.0 mmol/L (3.6-5.0) 04/27/19 15:50 Chloride 111.0 mmol/L (98-107) H 04/27/19 15:50 Carbon Dioxide 17 mmol/L (22-30) L 04/27/19 15:50 Anion Gap 20 mmol/L 04/27/19 15:50 BUN 11 mg/dL (7-17) 04/27/19 15:50 Creatinine 0.6 mg/dL (0.7-1.2) L 04/27/19 15:50 Estimated GFR > 60 ml/min 04/27/19 15:50 BUN/Creatinine Ratio 18 % 04/27/19 15:50 Glucose 90 mg/dL (65-100) 04/27/19 15:50 POC Glucose 107 (70-105) H 04/27/19 16:58 Calcium 9.0 mg/dL (8.4-10.2) 04/27/19 15:50 Total Bilirubin 0.20 mg/dL (0.1-1.2) 04/27/19 15:50 AST 20 units/L (5-40) 04/27/19 15:50 ALT < 5 units/L (7-56) L 04/27/19 15:50 Alkaline Phosphatase 107 units/L (35-129) 04/27/19 15:50 Total Creatine Kinase 65 units/L (30-135) 04/27/19 15:50 CK-MB (CK-2) < 1.0 ng/mL (0.0-4.0) 04/27/19 15:50 CK-MB (CK-2) Rel Index 1.5 (0-4) 04/27/19 15:50 Troponin T < 0.010 ng/mL (0.00-0.029) 04/27/19 15:50 Total Protein 6.4 g/dL (6.3-8.2) 04/27/19 15:50 Albumin 3.4 g/dL (3.9-5) L 04/27/19 15:50 Albumin/Globulin Ratio 1.1 % 04/27/19 15:50 Triglycerides 74 mg/dL (2-149) 04/28/19 11:14 Cholesterol 112 mg/dL (50-199) 04/28/19 11:14 LDL Cholesterol Direct 59 mg/dL (50-130) 04/28/19 11:14 HDL Cholesterol 42 mg/dL (40-59) 04/28/19 11:14 Cholesterol/HDL Ratio 2.66 % 04/28/19 11:14 Urine Color Yellow (Yellow) 04/27/19 18:50 Urine Turbidity Clear (Clear) 04/27/19 18:50 Urine pH 6.0 (5.0-7.0) 04/27/19 18:50 Ur Specific [place] 1.021 (1.003-1.030) 04/27/19 18:50 Urine Protein <15 mg/dl mg/dL (Negative) 04/27/19 18:50 Urine Glucose (UA) Neg mg/dL (Negative) 04/27/19 18:50 Urine Ketones Tr mg/dL (Negative) 04/27/19 18:50 Urine Blood Neg (Negative) 04/27/19 18:50 Urine Nitrite Neg (Negative) 04/27/19 18:50 Urine Bilirubin Neg (Negative) 04/27/19 18:50 Urine Urobilinogen 2.0 mg/dL (<2.0) 04/27/19 18:50 Ur Leukocyte Esterase Neg (Negative) 04/27/19 18:50 Urine WBC (Auto) 1.0 /HPF (0.0-6.0) 04/27/19 18:50 Urine RBC (Auto) 3.0 /HPF (0.0-6.0) 04/27/19 18:50 Urine Mucus Few /HPF 04/27/19 18:50 Urine Opiates Screen Presumptive negative 04/27/19 18:45 Urine Methadone Screen Presumptive negative 04/27/19 18:45 Ur Barbiturates Screen Presumptive negative 04/27/19 18:45 Ur Phencyclidine Scrn Presumptive negative 04/27/19 18:45 Ur Amphetamines Screen Presumptive negative 04/27/19 18:45 U Benzodiazepines Scrn Presumptive negative 04/27/19 18:45 Urine Cocaine Screen Presumptive negative 04/27/19 18:45 U Marijuana (THC) Screen Presumptive negative 04/27/19 18:45 Drugs of Abuse Note Disclamer 04/27/19 18:45 Active Medications - Current Medications Current Medications: Generic Name Dose Route Start Last Admin Trade Name Freq PRN Reason Stop Dose Admin Acetaminophen 650 mg 04/28/19 01:21 Tylenol PO Q4H PRN Pain, Mild (1-3) Aspirin 325 mg 04/28/19 10:00 04/28/19 10:26 Aspirin PO 325 mg QDAY [facility] Administration Bisacodyl 10 mg 04/28/19 01:21 Dulcolax [place] QDAY PRN Constipation Magnesium Hydroxide 30 ml 04/28/19 01:21 Milk Of Magnesia PO Q4H PRN Constipation Ondansetron HCl 4 mg 04/28/19 01:21 Zofran IV Q8H PRN Nausea And Vomiting Pravastatin Sodium 40 mg 04/28/19 22:00 Pravachol PO QHS MARK Sodium Chloride 10 ml 04/28/19 01:21 04/28/19 10:26 Sodium Chloride Flush Syringe 10 Ml IV 10 ml PRN PRN Administration LINE FLUSH
[2019-04-28 16:00] VITALS: BP 118/72
--- NOTE | 2019-04-28 16:50 | Discharge Summary ---
Providers - Providers Date of Admission: 04/27/19 19:00 Date of discharge: 04/28/19 Attending physician: WILL TERRAZAS MD 04/28/19 01:22 Occupational Therapy Evaluate and Treat [CONS] Routine Comment: Reason For Exam: Neuro deficits Physical Therapy Evaluation and Treat [CONS] Routine Comment: Reason For Exam: Neuro deficits 04/28/19 02:58 Consult to Physician [CONS] Routine Comment: Consulting Provider: TITUS SINGH Physician Instructions: Reason For Exam: cva 04/28/19 11:43 Consult to Physician [CONS] Routine Comment: Consulting Provider: CANDACE CISSE Physician Instructions: Reason For Exam: new onset A Fib Primary care physician: DIRECTOR OF RETAIL Hospitalization Reason for admission: right sided weakness Condition: Stable Pertinent studies: CT, MRI head; negative for acute CVA Carotid Doppler; no significant stenosis Echo is pending reading Hospital course: 59-year-old female who presents the emergency room with complaints of right- sided weakness that began 2 days ago. The patient's caregiver states that she is leaning towards the right side whenever she is walking or sitting up. The caregiver also states that she chronically has ptosis of the left eye but it has worsened in the last 2 days. The patient states that she has blurred vision in the left eye. Patient denies any headache, chest pain, shortness of breath, nausea, vomiting, palpitations, leg swelling, any other symptoms. The caregiver states that a month ago she had a fracture of her left hip and had surgery at that time. The caregiver only reports a history of bipolar disorder. Patient was resulted to [place] and a stroke workup was done which was negative, patient was evaluated by PT or tender, and no fdc facility needed and advised to be discharged back to the facility. Neurology consult appreciated. Disposition: DC-01 TO HOME OR SELFCARE Time spent for discharge: 32 minutes - Discharge Diagnoses (1) Right sided weakness Status: Acute (2) Metabolic acidosis Status: Acute (3) S/P total hip arthroplasty Status: Acute (4) Schizoaffective disorder Status: Acute Core Measure Documentation - Palliative Care Palliative Care/ Comfort Measures: Not Applicable - Core Measures Any of the following diagnoses?: none Exam - Physical Exam Narrative exam: Not in cardiopulmonary distress. The patient appeared well nourished and normally developed. Vital signs as documented. Head exam is unremarkable. No scleral icterus . Neck is without jugular venous distension, thyromegaly, or carotid bruits. Lungs are clear to auscultation. Cardiac exam reveals regular rate and Rhythm. Abdominal exam reveals normal bowel sounds, nontender, no organomegaly. Extremities are nonedematous and both femoral and pedal pulses are normal. UNDERWRITING INTERN: Alert and oriented 3. No focal weakness. - Constitutional Vitals: Temp Pulse Resp BP Pulse Ox 98.2 F 70 19 118/72 100 04/28/19 15:59 04/28/19 15:59 04/28/19 15:59 04/28/19 15:59 04/28/19 15:59 Plan Activity: no restrictions Weight Bearing Status: Full Weight Bearing Diet: regular Follow up with: PRIMARY CAREMD [Primary Care Provider] - 3-5 Days ELLI DEUTSCH MD [Staff Physician] - 7 Days
--- NOTE | 2019-04-28 19:25 | Consultation ---
History of Present Illness Consult date: 04/28/19 Reason for Consult: Possible stroke Chief complaint: Left sided weakness History of present illness: Patient is a 59 y/o woman w/ a h/o bipolar d/o, schizoaffective d/o, anxiety, depression, asthma, IBS, chronic ptosis and blurry vision of left eye. Patient reports that about 3 weeks ago, she had a fall, and fell on her right side. Since then, she states that she has been feeling weakness of her LUE/LLE off and on. She started experiencing Lt. sided weakness 2 days ago, and was brought to [facility] for further evaluation by warehouse operations associate. Patient states that she is feeling somewhat better today, and not as weak as before. Past History Past Medical History: other (bipolar d/o, schizoaffective d/o, anxiety, depression, asthma, IBS, chronic ptosis and blurry vision of left eye) Social history: other (lives at jail) Family history: no significant family history Medications and Allergies Allergies Allergy/AdvReac Type Severity Reaction Status Date / Time aripiprazole [From Abilify] Allergy Unknown Verified 11/17/18 18:36 paliperidone [From Invega] Allergy Unknown Verified 11/17/18 18:36 lactose AdvReac Unknown Verified 03/26/19 09:11 Home Medications Medication Instructions Recorded Confirmed Last Taken Type Benztropine [Cogentin] 1 mg PO DAILY 03/25/19 04/27/19 Unknown History Divalproex ER [Depakote ER] 500 mg PO BID 03/25/19 04/27/19 Unknown History Duloxetine HCl 60 mg PO QDAY 03/25/19 04/27/19 Unknown History Mirtazapine [Remeron 15mg TAB] 15 mg PO QHS 03/25/19 04/27/19 Unknown History Haloperidol 50 mg IM Q4W 03/27/19 04/27/19 02/24/19 History Apixaban [Eliquis] 2.5 mg PO BID 35 Days tablet 03/29/19 04/27/19 Unknown Rx Famotidine [Pepcid] 20 mg PO BID 60 Days tablet 03/29/19 04/27/19 Unknown Rx HYDROcodone/APAP 10-325 [[place] 1 each PO Q6H PRN #20 tablet 03/29/19 04/27/19 Unknown Rx 10-325 mg TAB] Active Meds: Active Medications Acetaminophen (Tylenol) 650 mg PO Q4H PRN PRN Reason: Pain, Mild (1-3) Aspirin (Aspirin) 325 mg PO QDAY [facility] Last Admin: 04/28/19 10:26 Dose: 325 mg Documented by: Bisacodyl (Dulcolax) 10 mg OK QDAY PRN PRN Reason: Constipation Magnesium Hydroxide (Milk Of Magnesia) 30 ml PO Q4H PRN PRN Reason: Constipation Ondansetron HCl (Zofran) 4 mg IV Q8H PRN PRN Reason: Nausea And Vomiting Pravastatin Sodium (Pravachol) 40 mg PO QHS [facility] Sodium Chloride (Sodium Chloride Flush Syringe 10 Ml) 10 ml IV PRN PRN PRN Reason: LINE FLUSH Last Admin: 04/28/19 10:26 Dose: 10 ml Documented by: Review of Systems All systems: negative Neurological: weakness, numbness Physical Examination - Vital Signs Vital Signs: Vital Signs Pulse Resp BP Pulse Ox 90 18 117/76 99 04/27/19 15:43 04/27/19 15:43 04/27/19 15:43 04/27/19 15:43 - Physical Exam Narrative exam: Patient is awake, alert, oriented x2 minus month and hospital, follows 2-step commands. PERRL, EOMI, VFF, tongue midline, baseline left ptosis noted, b/l intact to LT. No dysarthria or aphasia noted. 4/5 strength in all extremities. 3+ reflexes throughout. B/l intact to FTN and HTS. B/l intact to LT. - Constitutional General appearance: comfortable - EENT EENT: Present: ATNC, PERRL, mucous membranes moist, hearing intact, vision intact - Respiratory Respiratory: Present: lungs clear, normal breath sounds - Cardiovascular Cardiovascular: Present: regular rate, normal S1, normal S2 Extremities: Present: no clubbing, cyanosis, no inflammation - Gastrointestinal Gastrointestinal: Present: normoactive bowel sounds, soft, non-tender - Integumentary Integumentary: Present: normal - Musculoskeletal Musculoskeletal: Present: no fluid collection, normal range of motion - Psychiatric Psychiatric: Present: mood/affect appropriate - Level of Consciousness 1a. Level of Consciousness: alert/keenly responsive - LOC Questions 1b. LOC Questions: answers both correctly - LOC Command 1c. LOC Commands: performs tasks correctly - Best Gaze 2. Best Gaze: normal - Visual 3. Visual: no visual loss - Facial Palsy 4. Facial Palsy: normal symmetrical movement - Motor Arm 5a. Motor Arm Left: no drift 5b. Motor Arm Right: no drift - Motor Leg 6a. Motor Leg Left: no drift 6b. Motor Leg Right: no drift - Limb Ataxia 7. Limb Ataxia: absent - Sensory 8. Sensory: normal - Best Language 9. Best Language: no aphasia - Dysarthria 10. Dysarthria: normal - Extinction and Inattention 11. Extinction/Inattention: no abnormality - Scoring Total Score: 0 Stroke Severity: No Stroke Symptoms Results - Laboratory Findings CBC and BMP: 04/27/19 15:50 04/27/19 15:50 Abnormal Lab Findings: Abnormal Labs 04/27/19 04/27/19 04/27/19 15:50 15:50 15:50 WBC 3.7 L RDW 17.1 H Plt Count 127 L PT 11.4 L INR 0.83 L APTT 22.9 L Thrombin Time 14.8 L Chloride 111.0 H Carbon Dioxide 17 L Creatinine 0.6 L POC Glucose ALT < 5 L Albumin 3.4 L 04/27/19 16:58 WBC RDW Plt Count PT INR APTT Thrombin Time Chloride Carbon Dioxide Creatinine POC Glucose 107 H ALT Albumin Assessment and Plan Patient is a 59 y/o woman w/ a h/o bipolar d/o, schizoaffective d/o, anxiety, de pression, asthma, IBS, chronic ptosis and blurry vision of left eye, who p/w left sided weakness for past 3 days. According to the patient's clinical findings, she likely has conversion disorder, given that there is no evidence of stroke on MRI, and patient has an extensive psychiatric history. Further, reflexes are symmetrical. Plan: 1. Left sided weakness: - Likely conversion d/o - MRI brain unremarkable - CT head unremarkable - CUS: no significant stenosis - Echo: pending - Cardiology evaluated telemetry, and did not note any evidence of A-fib or A- flutter. - Recommend PT/OT - Recommend MRI Cervical/thoracic/Lumbar spine, as patient had a fall 3 weeks ago, and c/o lower back pain, and also to rule out cervical spine disease. Reflexes are not noted to be asymmetrical, however increased in all motor groups. - As there is no evidence of stroke, would not require for patient to be started on ASA. - DVT Ppx: recommend lovenox - Blood pressure: recommend normotension, as no stroke on MRI - Will sign off, as I am not covering neurology service over the weekend. Recommend for neurologist covering weekend to be consulted for further neurologic monitoring and management tomorrow. Thank you for allowing me to take part in the care of this patient. Clifford Vazquez MD Neurology
[2019-04-28] MEDS ORDERED: PRAVASTATIN 40 MG TAB PO SCH (22:00)
== END 2019-04-28 19:57 | disposition home or self-care (01) ==
LOC: ED 15:19 → 4A 19:00
PROVIDERS: ADMIT Internal Medicine; ATTEND Internal Medicine
DX: I63.9 Cerebral infarction, unspecified (principal); M62.81 Muscle weakness (generalized); F41.9 Anxiety disorder, unspecified; F32.9 Major depressive disorder, single episode, unspecified; F25.9 Schizoaffective disorder, unspecified; D69.6 Thrombocytopenia, unspecified; J45.909 Unspecified asthma, uncomplicated; Z90.49 Acquired absence of other specified parts of digestive tract; Z87.891 Personal history of nicotine dependence; Z79.899 Other long term (current) drug therapy
CPT/HCPCS: 36415; 70450; 70551; 80053; 80061; 80307; 81001; 82550; 82553; 82962; 84484; 85025; 85610; 85670; 85730; 93005; 93010; 93306; 93880; 97162; 97166; 99284; G0378

== ENCOUNTER 2020-05-26 09:59 | Emergency (ER) | payer MEDICARE ==
--- NOTE | 2020-05-26 10:49 | Emergency Department Report ---
ED Fall HPI - General Chief Complaint: Fall Stated Complaint: RT ZOROASTRIANISM INJURY/FALL Time Seen by Provider: 05/26/20 10:43 Source: patient Mode of arrival: Stretcher - History of Present Illness Initial Comments: 60-year-old female presents to the emergency room from [facility] after a ground-level fall this morning. Patient denies any loss of consciousness but has a small skin tear on her right judaism. Her blood sugar and triage was 98. Patient also reports that she has right leg pain. MD Complaint: fall -: This morning Fall From: wheelchair When Fall Occurred: just prior to arrival Fall Witnessed: yes, by living facility s Place Fall Occurred: prison[facility]NF Loss of Consciousness: none Prolonged Down Time?: no Symptoms Prior to Fall: none Location: head Location - Extremities: Right: Thigh Severity: severe Severity scale (0 -10): 9 Quality: aching - Related Data Home Medications Medication Instructions Recorded Confirmed Last Taken Benztropine [Cogentin] 1 mg PO DAILY 03/25/19 01/30/20 Unknown Divalproex ER [Depakote ER] 500 mg PO BID 03/25/19 01/30/20 Unknown Duloxetine HCl 60 mg PO QDAY 03/25/19 01/30/20 Unknown Mirtazapine [Remeron 15mg TAB] 15 mg PO QHS 03/25/19 01/30/20 Unknown Haloperidol 50 mg IM Q4W 03/27/19 01/30/20 02/24/19 Previous Rx's Medication Instructions Recorded Last Taken Type Apixaban [Eliquis] 2.5 mg PO BID 35 Days tablet 03/29/19 Unknown Rx Famotidine [Pepcid] 20 mg PO BID 60 Days tablet 03/29/19 Unknown Rx HYDROcodone/APAP 10-325 [[place] 1 each PO Q6H PRN #20 tablet 03/29/19 Unknown Rx 10-325 mg TAB] Allergies Allergy/AdvReac Type Severity Reaction Status Date / Time aripiprazole [From Abilify] Allergy Unknown Verified 11/17/18 18:36 paliperidone [From Invega] Allergy Unknown Verified 11/17/18 18:36 lactose AdvReac Unknown Verified 03/26/19 09:11 ED Review of Systems ROS: Stated complaint: RT ZOROASTRIANISM INJURY/FALL Other details as noted in HPI Comment: All other systems reviewed and negative ED Past Medical Hx - Past Medical History Previous Medical History?: Yes Hx Hypertension: Yes Hx Congestive Heart Failure: No Hx Diabetes: No Hx Arthritis: No Hx Seizures: No Hx Psychiatric Treatment: Yes (anxiety,depression, Schizo-affective, bipolar, Lewy Bodies) Hx Asthma: No Hx COPD: No Hx Dementia: No Hx HIV: No Additional medical history: cdiff. hypoglycemia. rheumatic fever. Irritable bowel syndrome - Surgical History Past Surgical History?: Yes Hx Cholecystectomy: Yes Additional Surgical History: tonsil. cervical cancer surgery - Social History Smoking Status: Never Smoker Substance Use Type: None - Medications Home Medications: Home Medications Medication Instructions Recorded Confirmed Last Taken Type Benztropine [Cogentin] 1 mg PO DAILY 03/25/19 01/30/20 Unknown History Divalproex ER [Depakote ER] 500 mg PO BID 03/25/19 01/30/20 Unknown History Duloxetine HCl 60 mg PO QDAY 03/25/19 01/30/20 Unknown History Mirtazapine [Remeron 15mg TAB] 15 mg PO QHS 03/25/19 01/30/20 Unknown History Haloperidol 50 mg IM Q4W 03/27/19 01/30/20 02/24/19 History Apixaban [Eliquis] 2.5 mg PO BID 35 Days tablet 03/29/19 01/30/20 Unknown Rx Famotidine [Pepcid] 20 mg PO BID 60 Days tablet 03/29/19 01/30/20 Unknown Rx HYDROcodone/APAP 10-325 [[place] 1 each PO Q6H PRN #20 tablet 03/29/19 01/30/20 Unknown Rx 10-325 mg TAB] ED Physical Exam - General Limitations: No Limitations General appearance: alert, in no apparent distress - Head Head exam: Present: atraumatic, normocephalic - Eye Eye exam: Present: normal appearance - ENT ENT exam: Present: mucous membranes moist - Neck Neck exam: Present: normal inspection, tenderness, full ROM - Respiratory Respiratory exam: Absent: accessory muscle use - Cardiovascular Cardiovascular Exam: Present: regular rate, normal rhythm. Absent: systolic murmur, diastolic murmur, rubs, gallop - GI/Abdominal GI/Abdominal exam: Present: soft, normal bowel sounds - Expanded Lower Extremity Exam Left Hip exam: Present: full ROM Upper Leg exam: Present: full ROM Knee exam: Present: full ROM Lower Leg exam: Present: full ROM Ankle exam: Present: full ROM Neuro vascular tendon exam: Present: no vascular compromise - Neurological Exam Neurological exam: Present: alert, oriented X3 - Psychiatric Psychiatric exam: Present: normal affect, normal mood - Skin Skin exam: Present: other (Right judaism skin tear) ED Course Vital Signs 05/26/20 05/26/20 10:30 13:20 Temperature 97.0 F L Pulse Rate 72 Respiratory 18 18 Rate Blood Pressure 124/72 [Right] O2 Sat by Pulse 99 Oximetry ED Medical Decision Making - Radiology Data Radiology results: report reviewed Referring Physician:OBDULIO TEEPatient Name:ZEKE TURNERPatient ID:Gerda [id number] of :[id number]:FemaleAccession:[id number] Date:[id number] Status:[place] [address] Cat Scan Report Signed Patient: ZEKE TURNER MR#: [id number] 185 : 1960 Acct:[id number] Age/Sex: 60 / F ADM Date: 05/26/20 Loc: ED Attending Dr: Ordering Physician: CHIP SILVA Date of Service: 05/26/20 Procedure(s): CT head/brain wo con Accession Number(s): [id number] cc: CHIP SILVA CT HEAD WITHOUT CONTRAST INDICATION / CLINICAL INFORMATION: Ground-level fall head injury. Right-sided headache TECHNIQUE: All CT scans at this location are performed using CT dose reduction for ALARA by means of automated exposure control. COMPARISON: CT head 04/27/2019 FINDINGS: HEMORRHAGE: None. EXTRA-AXIAL SPACES: Normal in size and morphology for the patient's age. VENTRICULAR SYSTEM: Normal in size and morphology for the patient's age. CEREBRAL PARENCHYMA: Mild cerebral atrophy and periventricular microangiopathy, unchanged No significant abnormality. No acute territorial infarct. MIDLINE SHIFT OR HERNIATION: None. CEREBELLUM / BRAINSTEM: No significant abnormality. ORBITS: Normal as visualized. SOFT TISSUES of HEAD: No significant abnormality. CALVARIUM: No significant abnormality. PARANASAL SINUSES / MASTOID AIR CELLS: Normal as visualized. ADDITIONAL FINDINGS: None. IMPRESSION: 1. No acute intracranial abnormality. 2. Mild microangiopathy and cerebral atrophy, unchanged Signer Name: Jose Jacques MD Signed: 05/26/2020 11:55 AM Workstation Name: [id number] Transcribed By: TL Dictated By: Jose Jacques MD Electronically Authenticated By: Jose Jacques MD Signed Date/Time: 05/26/20 1155 DD/ 1152 TD/TT: Patient: ZEKE TURNER MR#: [id number] 185 : 1960 Acct:[id number] Age/Sex: 60 / F ADM Date: 05/26/20 Loc: ED Attending Dr: Ordering Physician: CHIP SILVA Date of Service: 05/26/20 Procedure(s): XR femur 2+V LT Accession Number(s): [id number] cc: CHIP SILVA Fluoro Time In Minutes: LEFT FEMUR 2 VIEW(S) INDICATION / CLINICAL INFORMATION: Left leg pain COMPARISON: 03/25/2019 FINDINGS: BONES / JOINT(S): No acute fracture or subluxation. No significant arthritis. SOFT TISSUES: No significant abnormality. Diaper. ADDITIONAL FINDINGS: Bipolar left hip arthroplasty has been placed from fracture ORIF of previously noted left femoral neck fracture. Signer Name: Jose Jacques MD Signed: 05/26/2020 1:39 PM Workstation Name: [id number] Transcribed By: TL Dictated By: Jose Jacques MD Electronically Authenticated By: Jose Jacques MD Signed Date/Time: 05/26/20 1339 DD/ 1338 TD/TT: [facility] [address] [place] [address] XRay Report Signed Patient: ZEKE TURNER MR#: [id number] 185 : 1960 Acct:[id number] Age/Sex: 60 / F ADM Date: 05/26/20 Loc: ED Attending Dr: Ordering Physician: CHIP SILVA Date of Service: 05/26/20 Procedure(s): XR knee 1-2V RT Accession Number(s): [id number] cc: CHIP SILVA Fluoro Time In Minutes: PORTABLE RIGHT KNEE 2 VIEWS INDICATION / CLINICAL INFORMATION: Fall with right knee pain. COMPARISON: None available. FINDINGS: BONES / JOINT(S): The bones are diffusely demineralized. No significant arthritis. No evidence of fracture or subluxation. Minimal suprapatellar joint effusion. SOFT TISSUES: No significant abnormality. ADDITIONAL FINDINGS: None. Signer Name: Cuong Geiger MD Signed: 05/26/2020 1:55 PM Workstation Name: [id number] Transcribed By: RT Dictated By: Cuong Geiger MD Electronically Authenticated By: Cuong Geiger MD Signed Date/Time: 05/26/201354 DD/ 53 TD/TT: - Medical Decision Making 60-year-old female presents to the emergency room from [facility] after a ground-level fall this morning. Patient denies any loss of consciousness but has a small skin tear on her right judaism. Her blood sugar and triage was 98. Patient also reports that she has right leg pain. CT head and neck has been ordered Right knee and femur order has been placed All x-rays and CT scans have returned with no acute abnormalities. Patient will be [facility]. She can take Tylenol ibuprofen for pain. Critical care attestation.: If time is entered above; I have spent that time in minutes in the direct care of this critically ill patient, excluding procedure time. ED Disposition Clinical Impression: Fall, Abrasion of face Disposition: DC/TX-70 ANOTHER TYPE HLTHCARE Is pt being admited?: No Does the pt Need Aspirin: No Condition: Stable Instructions: Abrasion, [id number] Additional Instructions: All CT scans and x-rays are negative for any acute abnormalities. You can take Tylenol or ibuprofen for pain management. Referrals: PRIMARY CARE, [Primary Care Provider] - 3-5 Days
--- NOTE | 2020-05-26 11:57 | Cat Scan Report ---
CT CERVICAL SPINE WITH AND WITHOUT CONTRAST HISTORY: Right-sided neck pain after fall COMPARISON: CT cervical 11/17/2018 TECHNIQUE: CT images of the cervical spine were obtained before and after administration of intraveno us contrast. Sagittal and coronal reformats were post-processed. CONTRAST: 100 ml of Omnipaque 300 FINDINGS: Alignment: Normal. Vertebrae:No significant abnormality. Disc Spaces: Mild discogenic degenerative disease C5-7 Facet Joints:No significant abnormality. Craniocervical Junction:No significant abnormality. Prevertebral Soft Tissues:No significant abnormality. Lung Apices: No significant abnormality. No abnormal enhancement. Additional Findings: None IMPRESSION: 1. No cervical fracture. 2. Mild discogenic degenerative disease C5-7, unchanged Signer Name: Jose Jacques MD Signed: 05/26/2020 11:52 AM Workstation Name: [id number]
--- NOTE | 2020-05-26 12:00 | Cat Scan Report ---
CT HEAD WITHOUT CONTRAST INDICATION / CLINICAL INFORMATION: Ground-level fall head injury. Right-sided headache TECHNIQUE: All CT scans at this location are performed using CT dose reduction for ALARA by means of automated e xposure control. COMPARISON: CT head 04/27/2019 FINDINGS: HEMORRHAGE: None. EXTRA-AXIAL SPACES: Normal in size and morphology for the patient's age. VENTRICULAR SYSTEM: Normal in size and morphology for the patient's age. CEREBRAL PARENCHYMA: Mild cerebral atrophy and periventricular microangiopathy, unchanged No signific ant abnormality. No acute territorial infarct. MIDLINE SHIFT OR HERNIATION: None. CEREBELLUM / BRAINSTEM: No significant abnormality. ORBITS: Normal as visualized. SOFT TISSUES of HEAD: No significant abnormality. CALVARIUM: No significant abnormality. PARANASAL SINUSES / MASTOID AIR CELLS: Normal as visualized. ADDITIONAL FINDINGS: None. IMPRESSION: 1. No acute intracranial abnormality. 2. Mild microangiopathy and cerebral atrophy, unchanged Signer Name: Jose Jacques MD Signed: 05/26/2020 11:55 AM Workstation Name: [id number]
[2020-05-26] MEDS ORDERED: IBUPROFEN 600 MG TAB PO ONE (12:55)
--- NOTE | 2020-05-26 13:44 | XRay Report ---
LEFT FEMUR 2 VIEW(S) INDICATION / CLINICAL INFORMATION: Left leg pain COMPARISON: 03/25/2019 FINDINGS: BONES / JOINT(S): No acute fracture or subluxation. No significant arthritis. SOFT TISSUES: No significant abnormality. Diaper. ADDITIONAL FINDINGS: Bipolar left hip arthroplasty has been placed from fracture ORIF of previously n oted left femoral neck fracture. Signer Name: Jose Jacques MD Signed: 05/26/2020 1:39 PM Workstation Name: [id number]
--- NOTE | 2020-05-26 13:59 | XRay Report ---
PORTABLE RIGHT KNEE 2 VIEWS INDICATION / CLINICAL INFORMATION: Fall with right knee pain. COMPARISON: None available. FINDINGS: BONES / JOINT(S): The bones are diffusely demineralized. No significant arthritis. No evidence of fra cture or subluxation. Minimal suprapatellar joint effusion. SOFT TISSUES: No significant abnormality. ADDITIONAL FINDINGS: None. Signer Name: Cuong Geiger MD Signed: 05/26/2020 1:55 PM Workstation Name: [id number]
[2020-05-26 14:20] VITALS: BP 127/84
== END 2020-05-26 15:15 | disposition other institution (70) ==
LOC: ED 09:59
DX: S00.81XA Abrasion of other part of head, initial encounter (principal); R51.9 Headache, unspecified; I10 Essential (primary) hypertension; F31.9 Bipolar disorder, unspecified; Z90.49 Acquired absence of other specified parts of digestive tract; Z98.890 Other specified postprocedural states; Z79.899 Other long term (current) drug therapy; Z88.8 Allergy status to other drugs, medicaments and biological substances; W18.30XA Fall on same level, unspecified, initial encounter; Y93.89 Activity, other specified; Y92.89 Other specified places as the place of occurrence of the external cause; Y99.8 Other external cause status
CPT/HCPCS: 70450; 72125

== ENCOUNTER 2020-07-15 16:06 | Emergency (ER) | payer MEDICARE ==
--- NOTE | 2020-07-15 17:00 | Emergency Department Report ---
ED Fall HPI - General Chief Complaint: Fall Stated Complaint: GROUND LEVEL FALL/DISORIENTED Time Seen by Provider: 07/15/20 16:46 Source: EMS Mode of arrival: Stretcher Limitations: No Limitations - History of Present Illness Initial Comments: 60-year-old female with a past medical history of COVID-19 in May 2020, previous left femur fracture status post surgery, Lewy body dementia, schizophrenia, and repeated falls treated to the hospital from assisted found on the floor next to her bed. She was found on the floor with her feet in the bed with complaint of neck and back pain. Patient is alert and oriented to person, place, and year. She is slow to respond to questions. She endorses pain to neck and back pain - Related Data Home Medications Medication Instructions Recorded Confirmed Last Taken Benztropine [Cogentin] 1 mg PO DAILY 03/25/19 07/05/20 Unknown Divalproex ER [Depakote ER] 500 mg PO BID 03/25/19 07/05/20 Unknown Duloxetine HCl 60 mg PO QDAY 03/25/19 07/05/20 Unknown Mirtazapine [Remeron 15mg TAB] 15 mg PO QHS 03/25/19 07/05/20 Unknown Previous Rx's Medication Instructions Recorded Last Taken Type Apixaban [Eliquis] 2.5 mg PO BID 35 Days tablet 03/29/19 Unknown Rx Famotidine [Pepcid] 20 mg PO BID 60 Days tablet 03/29/19 Unknown Rx Linezolid [Zyvox] 200 mg PO Q12HR #20 tablet 07/10/20 Unknown Rx Midodrine [Proamatine] 5 mg PO TID@0800,1200,1600 tablet 07/10/20 Unknown Rx megestroL [Megestrol] 800 mg PO QDAY oral.liqd 07/10/20 Unknown Rx Allergies Allergy/AdvReac Type Severity Reaction Status Date / Time aripiprazole [From Abilify] Allergy Unknown Verified 11/17/18 18:36 paliperidone [From Invega] Allergy Unknown Verified 11/17/18 18:36 lactose AdvReac Unknown Verified 03/26/19 09:11 ED Review of Systems ROS: Stated complaint: GROUND LEVEL FALL/DISORIENTED Other details as noted in HPI Comment: All other systems reviewed and negative ED Past Medical Hx - Past Medical History Previous Medical History?: Yes Hx Hypertension: Yes Hx Congestive Heart Failure: No Hx Diabetes: No Hx Arthritis: No Hx Seizures: No Hx Psychiatric Treatment: Yes (anxiety,depression, Schizo-affective, bipolar, Lewy Bodies) Hx Asthma: No Hx COPD: No Hx Dementia: No Hx HIV: No Additional medical history: cdiff. hypoglycemia. rheumatic fever. Irritable bowel syndrome - Surgical History Past Surgical History?: Yes Hx Cholecystectomy: Yes Additional Surgical History: tonsil. cervical cancer surgery - Social History Smoking Status: Unknown if ever smoked Substance Use Type: None - Medications Home Medications: Home Medications Medication Instructions Recorded Confirmed Last Taken Type Benztropine [Cogentin] 1 mg PO DAILY 03/25/19 07/05/20 Unknown History Divalproex ER [Depakote ER] 500 mg PO BID 03/25/19 07/05/20 Unknown History Duloxetine HCl 60 mg PO QDAY 03/25/19 07/05/20 Unknown History Mirtazapine [Remeron 15mg TAB] 15 mg PO QHS 03/25/19 07/05/20 Unknown History Apixaban [Eliquis] 2.5 mg PO BID 35 Days tablet 03/29/19 07/05/20 Unknown Rx Famotidine [Pepcid] 20 mg PO BID 60 Days tablet 03/29/19 07/05/20 Unknown Rx Linezolid [Zyvox] 200 mg PO Q12HR #20 tablet 07/10/20 Unknown Rx Midodrine [Proamatine] 5 mg PO TID@0800,1200,1600 tablet 07/10/20 Unknown Rx megestroL [Megestrol] 800 mg PO QDAY oral.liqd 07/10/20 Unknown Rx ED Physical Exam - General Limitations: Physical Limitation - Other Other exam information: General: No acute distress Head: Atraumatic Eyes: normal appearance ENT: Moist mucous membranes Neck: Normal appearance, no midline tenderness, c-collar in place Chest: Clear to auscultation bilaterally CV: Regular rate and rhythm Abdomen: Soft, normal bowel sounds, nontender, nondistended, no rebound or guar ding Back: Normal inspection, generalized midline lumbar thoracic spine tenderness Extremity: Normal inspection, full range of motion of upper and lower extremities without deformity or pain with movement. Lateral left hip surgical scar noted. Neuro: Alert O x 3, no facial asymmetry, speech clear, no gross motor sensory deficit Psych: Appropriate behavior Skin: Right hip ulceration with dressing ED Course Vital Signs 07/15/20 16:31 Temperature 98.8 F Pulse Rate 75 Respiratory 18 Rate Blood Pressure 124/54 O2 Sat by Pulse 98 Oximetry ED Medical Decision Making - Radiology Data Radiology results: report reviewed CT head/brain wo con INDICATION / CLINICAL INFORMATION: 60 years Female; unwitnessed fall out of bed, pain. TECHNIQUE: Routine CT head without contrast. All CT scans at this location are performed using CT dose reduction for ALARA by means of automated exposure control. COMPARISON: 07/03/2020 FINDINGS: BRAIN / INTRACRANIAL CONTENTS: No acute hemorrhage, mass effect, midline shift, hydrocephalus, or acute, large territorial infarct. Mild to moderate cerebral and cerebellar atrophy. Moderate degree of hippocampal atrophy suggested bilaterally. Partially empty sella is suggested. There are [id number] areas of decreased attenuation in the white matter of the cerebral hemispheres. These are nonspecific findings and may be related to microangiopathy (hypertension, diabetes, atherosclerosis), given the patient's age. It might be difficult to evaluate for small areas of ischemia without diffusion imaging by MRI. CRANIOCERVICAL JUNCTION: No significant abnormality. ORBITS: No significant abnormality of visualized orbits. SINUSES / MASTOIDS: Mild to moderate mucosal thickening seen in the mastoids on the right, with associated air-fluid level and partial opacification. There is mild mucosal thickening in the mastoids. Minimal mucosal thickening noted in the ethmoids. Mucous retention cyst/polyp seen in the right maxillary antrum anteriorly. ADDITIONAL FINDINGS: No significant atherosclerotic disease appreciated. IMPRESSION: 1. No focal mass, intracranial hemorrhage, hydrocephalus, or acute, large territorial infarct. 2. Sinus disease, as described above. CT thoracic spine wo con INDICATION: unwitnessed fall out of bed, pain. TECHNIQUE: Axial CT images of the thoracic spine were obtained. Sagittal and coronal reformatted images were produced. All CT scans at this location are performed using CT dose reduction for ALARA by means of automated exposure control. COMPARISON: None available. FINDINGS: ALIGNMENT: Normal alignment. VERTEBRAE:No aggressive osseous marrow signal. Vertebral body heights are preserved. No acute fracture. SPONDYLOSIS: No significant spondylosis. SOFT TISSUES: No prevertebral soft tissue thickening. ADDITIONAL FINDINGS: Heart size right and small left pleural effusions. Dependent consolidation is likely atelectasis. IMPRESSION: 1. No acute thoracic spine fracture. 2. Moderate right and small left pleural effusions. CT cervical spine wo con INDICATION: unwitnessed fall out of bed, pain. TECHNIQUE: Axial CT images of the cervical spine were obtained. Sagittal and coronal reformatted images were produced. All CT scans at this location are performed using CT dose reduction for ALARA by means of automated exposure control. COMPARISON: None available. FINDINGS: ALIGNMENT: Normal alignment. VERTEBRAE: No fracture. Vertebral body heights are preserved. C1 and C2 are congruent. SPONDYLOSIS: No significant spondylosis. SOFT TISSUES: No significant soft tissue abnormality. ADDITIONAL FINDINGS: No significant additional findings. IMPRESSION: 1. No fracture of the cervical spine. CT lumbar spine wo con INDICATION: unwitnessed fall out of bed, pain. TECHNIQUE: Axial CT images of the lumbar spine were obtained. Sagittal and coronal reformatted images were produced. All CT scans at this location are performed using CT dose reduction for ALARA by means of automated exposure control. COMPARISON: None available. FINDINGS: ALIGNMENT: Normal alignment. VERTEBRAE: No fracture. Vertebral body heights are preserved. SPONDYLOSIS: Commensurate for age SOFT TISSUES: No significant soft tissue abnormality. ADDITIONAL FINDINGS: No significant additional findings. IMPRESSION: 1. No fracture of the lumbar spine. CHEST 1 VIEW INDICATION / CLINICAL INFORMATION: MAIN. Dyspnea FINDINGS: SUPPORT DEVICES: None. HEART / MEDIASTINUM: No significant abnormality. LUNGS / PLEURA: Ill-defined airspace disease within the mid and lower aspect of the right lung. The left lung is clear. pelvis xray: b/l hip prosthesis no acute finding - Medical Decision Making 60-year-old female presents to the hospital for fall out of bed. CT head, cervical spine, thoracic, and lumbar spine did not reveal acute injury. Incidental lung findings on ct thoracic spine, xray chest preformed and abnormal right lung findings likely due to effusion/atelectasis as per urology report. No reports of fever, cough, or hypoxia. Patient lying supine in bed without respiratory distress as per cxr: Ill-defined airspace disease within the mid and lower aspect of the right lung. The left lung is clear. as per thoracic spine ct: Moderate right and small left pleural effusions. Dependent consolidation is likely atelectasis. Critical Care Time: No Critical care attestation.: If time is entered above; I have spent that time in minutes in the direct care of this critically ill patient, excluding procedure time. ED Disposition Clinical Impression: Fall, Atelectasis of right lung Disposition: DC-01 TO HOME OR SELFCARE Is pt being admited?: No Condition: Stable Instructions: Atelectasis, Adult, Understanding Your Risk for Falls Additional Instructions: Follow-up with your doctor or doctor/clinic provided. Return if symptoms worsen as indicated by your discharge instructions. Referrals: LORETO RAMIREZ MD [Primary Care Provider] - 3-5 Days Time of Disposition: 20:16
--- NOTE | 2020-07-15 17:32 | Cat Scan Report ---
CT head/brain wo con INDICATION / CLINICAL INFORMATION: 60 years Female; unwitnessed fall out of bed, pain. TECHNIQUE: Routine CT head without contrast. All CT scans at this location are performed using CT dos e reduction for ALARA by means of automated exposure control. COMPARISON: 07/03/2020 FINDINGS: BRAIN / INTRACRANIAL CONTENTS: No acute hemorrhage, mass effect, midline shift, hydrocephalus, or acu te, large territorial infarct. Mild to moderate cerebral and cerebellar atrophy. Moderate degree of hippocampal atrophy suggested bi laterally. Partially empty sella is suggested. There are uprj-eg-[id number] areas of decreased attenuation in the white matter of the cerebral hemisph eres. These are nonspecific findings and may be related to microangiopathy (hypertension, diabetes, a therosclerosis), given the patient's age. It might be difficult to evaluate for small areas of ischem ia without diffusion imaging by MRI. CRANIOCERVICAL JUNCTION: No significant abnormality. ORBITS: No significant abnormality of visualized orbits. SINUSES / MASTOIDS: Mild to moderate mucosal thickening seen in the mastoids on the right, with assoc iated air-fluid level and partial opacification. There is mild mucosal thickening in the mastoids. Mi nimal mucosal thickening noted in the ethmoids. Mucous retention cyst/polyp seen in the right maxilla ry antrum anteriorly. ADDITIONAL FINDINGS: No significant atherosclerotic disease appreciated. IMPRESSION: 1. No focal mass, intracranial hemorrhage, hydrocephalus, or acute, large territorial infarct. 2. Sinus disease, as described above. Signer Name: Carlos Ascencio MD, III Signed: 07/15/2020 5:27 PM Workstation Name: [id number]
--- NOTE | 2020-07-15 17:39 | Cat Scan Report ---
CT thoracic spine wo con INDICATION: unwitnessed fall out of bed, pain. TECHNIQUE: Axial CT images of the thoracic spine were obtained. Sagittal and coronal reformatted images were pro duced. All CT scans at this location are performed using CT dose reduction for ALARA by means of auto mated exposure control. COMPARISON: None available. FINDINGS: ALIGNMENT: Normal alignment. VERTEBRAE:No aggressive osseous marrow signal. Vertebral body heights are preserved. No acute fractur e. SPONDYLOSIS: No significant spondylosis. SOFT TISSUES: No prevertebral soft tissue thickening. ADDITIONAL FINDINGS: Heart size right and small left pleural effusions. Dependent consolidation is li janae atelectasis. IMPRESSION: 1. No acute thoracic spine fracture. 2. Moderate right and small left pleural effusions. Signer Name: Hernán Chase MD Signed: 07/15/2020 5:34 PM Workstation Name: [email or web address]
--- NOTE | 2020-07-15 17:50 | Cat Scan Report ---
CT lumbar spine wo con INDICATION: unwitnessed fall out of bed, pain. TECHNIQUE: Axial CT images of the lumbar spine were obtained. Sagittal and coronal reformatted images were produ roma. All CT scans at this location are performed using CT dose reduction for ALARA by means of automa ronit exposure control. COMPARISON: None available. FINDINGS: ALIGNMENT: Normal alignment. VERTEBRAE: No fracture. Vertebral body heights are preserved. SPONDYLOSIS: Commensurate for age SOFT TISSUES: No significant soft tissue abnormality. ADDITIONAL FINDINGS: No significant additional findings. IMPRESSION: 1. No fracture of the lumbar spine. Signer Name: Hernán Chase MD Signed: 07/15/2020 5:45 PM Workstation Name: [id number]
--- NOTE | 2020-07-15 17:53 | Cat Scan Report ---
CT cervical spine wo con INDICATION: unwitnessed fall out of bed, pain. TECHNIQUE: Axial CT images of the cervical spine were obtained. Sagittal and coronal reformatted images were pro duced. All CT scans at this location are performed using CT dose reduction for ALARA by means of auto mated exposure control. COMPARISON: None available. FINDINGS: ALIGNMENT: Normal alignment. VERTEBRAE: No fracture. Vertebral body heights are preserved. C1 and C2 are congruent. SPONDYLOSIS: No significant spondylosis. SOFT TISSUES: No significant soft tissue abnormality. ADDITIONAL FINDINGS: No significant additional findings. IMPRESSION: 1. No fracture of the cervical spine. Signer Name: Hernán Chase MD Signed: 07/15/2020 5:49 PM Workstation Name: [id number]
--- NOTE | 2020-07-15 18:40 | XRay Report ---
CHEST 1 VIEW INDICATION / CLINICAL INFORMATION: MAIN. Dyspnea FINDINGS: SUPPORT DEVICES: None. HEART / MEDIASTINUM: No significant abnormality. LUNGS / PLEURA: Ill-defined airspace disease within the mid and lower aspect of the right lung. The l eft lung is clear. Signer Name: Doug Kiser MD Signed: 07/15/2020 6:35 PM Workstation Name: [id number]
--- NOTE | 2020-07-15 20:01 | XRay Report ---
AP PELVIS INDICATION / CLINICAL INFORMATION: Fall with pelvic pain. COMPARISON: None available. FINDINGS: BONES / JOINT(S): There are bilateral hip prostheses without complication. There is no evidence of fr acture or subluxation. SOFT TISSUES: No significant abnormality. ADDITIONAL FINDINGS: None. Signer Name: Cuong Geiger MD Signed: 07/15/2020 7:56 PM Workstation Name: [id number]
[2020-07-16 11:36] VITALS: BP 120/58
== END 2020-07-16 11:36 | disposition home or self-care (01) ==
LOC: ED 16:06
DX: J98.11 Atelectasis (principal); F25.0 Schizoaffective disorder, bipolar type; I10 Essential (primary) hypertension; Z88.8 Allergy status to other drugs, medicaments and biological substances; Z79.899 Other long term (current) drug therapy; Z90.49 Acquired absence of other specified parts of digestive tract; Z98.890 Other specified postprocedural states; W18.30XA Fall on same level, unspecified, initial encounter; Y93.89 Activity, other specified; Y92.89 Other specified places as the place of occurrence of the external cause; Y99.8 Other external cause status
CPT/HCPCS: 70450; 71045; 72125; 72128; 72131; 72170

== ENCOUNTER 2021-11-19 16:28 | Emergency (ER) | payer MEDICARE ==
[2021-11-19] MEDS ORDERED: FAMOTIDINE 20 MG/2 ML INJ IV ONE (18:25)
[2021-11-19] MEDS ORDERED: ONDANSETRON 4 MG/2 ML INJ IV ONE (18:25)
[2021-11-19] MEDS ORDERED: MORPHINE 4 MG/1 ML INJ IV ONE (18:25)
--- NOTE | 2021-11-19 18:34 | Emergency Department Report ---
<KALLIE TUCKER - Last Filed: 11/19/21 20:34> ED Abdominal Pain HPI - General Chief Complaint: Urogenital-Female Stated Complaint: ABD PAIN Time Seen by Provider: 11/19/21 17:51 Source: EMS Mode of arrival: Stretcher Limitations: No Limitations - History of Present Illness Initial Comments: 61-year old female with a cognitive communication deficit, Lewy body dementia, and schizophrenia presents to the hospital from [facility] with complaints of pain secondary to uterine prolapse. Due to the mentioned medical issues above it is very difficult to obtain a detailed history of present illness. Patient states she has had abdominal pain x7 days a and history of uterine prolapse for 3 days. No reports of nausea. Patient is oriented to year, self, and place. Severity scale (0 -10): 10 - Related Data Home Medications Medication Instructions Recorded Confirmed Last Taken Benztropine [Cogentin] 1 mg PO DAILY 03/25/19 07/05/20 Unknown Divalproex ER [Depakote ER] 500 mg PO BID 03/25/19 07/05/20 Unknown Duloxetine HCl 60 mg PO QDAY 03/25/19 07/05/20 Unknown Mirtazapine [Remeron 15mg TAB] 15 mg PO QHS 03/25/19 07/05/20 Unknown Previous Rx's Medication Instructions Recorded Last Taken Type Apixaban [Eliquis] 2.5 mg PO BID 35 Days tablet 03/29/19 Unknown Rx Famotidine [Pepcid] 20 mg PO BID 60 Days tablet 03/29/19 Unknown Rx Linezolid [Zyvox] 200 mg PO Q12HR #20 tablet 07/10/20 Unknown Rx Midodrine [Proamatine] 5 mg PO TID@0800,1200,1600 tablet 07/10/20 Unknown Rx megestroL [Megestrol] 800 mg PO QDAY oral.liqd 07/10/20 Unknown Rx Allergies Allergy/AdvReac Type Severity Reaction Status Date / Time aripiprazole [From Abilify] Allergy Unknown Verified 11/17/18 18:36 paliperidone [From Invega] Allergy Unknown Verified 11/17/18 18:36 lactose AdvReac Unknown Verified 03/26/19 09:11 ED Review of Systems Comment: Unobtainable due to pts medical conditions ED Past Medical Hx - Past Medical History Previous Medical History?: Yes Hx Hypertension: Yes Hx Congestive Heart Failure: No Hx Diabetes: No Hx Arthritis: No Hx Seizures: No Hx Psychiatric Treatment: Yes (anxiety,depression, Schizo-affective, bipolar, Lewy Bodies) Hx Asthma: No Hx COPD: No Hx Dementia: No Hx HIV: No Additional medical history: cdiff. hypoglycemia. rheumatic fever. Irritable bowel syndrome - Surgical History Past Surgical History?: Yes Hx Cholecystectomy: Yes Additional Surgical History: tonsil. cervical cancer surgery - Social History Smoking Status: Unknown if ever smoked Substance Use Type: None - Medications Home Medications: Home Medications Medication Instructions Recorded Confirmed Last Taken Type Benztropine [Cogentin] 1 mg PO DAILY 03/25/19 07/05/20 Unknown History Divalproex ER [Depakote ER] 500 mg PO BID 03/25/19 07/05/20 Unknown History Duloxetine HCl 60 mg PO QDAY 03/25/19 07/05/20 Unknown History Mirtazapine [Remeron 15mg TAB] 15 mg PO QHS 03/25/19 07/05/20 Unknown History Apixaban [Eliquis] 2.5 mg PO BID 35 Days tablet 03/29/19 07/05/20 Unknown Rx Famotidine [Pepcid] 20 mg PO BID 60 Days tablet 03/29/19 07/05/20 Unknown Rx Linezolid [Zyvox] 200 mg PO Q12HR #20 tablet 07/10/20 Unknown Rx Midodrine [Proamatine] 5 mg PO TID@0800,1200,1600 tablet 07/10/20 Unknown Rx megestroL [Megestrol] 800 mg PO QDAY oral.liqd 07/10/20 Unknown Rx ED Physical Exam - General Limitations: No Limitations - Other Other exam information: General: No acute distress Head: Atraumatic Eyes: normal appearance ENT: Moist mucous membranes Neck: Normal appearance, no midline tenderness Chest: Clear to auscultation bilaterally CV: Regular rate and rhythm Abdomen: Soft, normal bowel sounds, generalized abdominal pain with palpation : Very difficult to position patient for adequate examination of the vagina. Patient seems not to tolerate flexion of her knees and hips without pain. External vaginal area examined there is no signs of prolapsed uterus outside of the vaginal orifice. Digital exam performed with mild uterine tenderness Back: Normal inspection Extremity: Normal inspection, limited lower extremity lower extremity movement and pain with passive hip and knee flexion Neuro: Alert O x 3, no facial asymmetry, speech clear, slow, and intermittent. Patient able to have a fluent conversation and answers questions with one-word answers. Psych: Appropriate behavior Skin: No rash ED Medical Decision Making - Lab Data Result diagrams: 11/19/21 18:29 11/19/21 18:29 - Radiology Data Radiology results: report reviewed CT ABDOMEN AND PELVIS WITH CONTRAST HISTORY: abd pain, hx of uterine prolapse. COMPARISON: CT abdomen/pelvis from 06/04/2020 TECHNIQUE: CT images of the abdomen and pelvis were obtained following administration of intravenous contrast. All CT scans at this location are performed using CT dose reduction for ALARA by means of automated exposure control. CONTRAST: 100 ml of intravenous contrast administered. FINDINGS: Lungs/bones: Minimal streaky atelectasis most notably in the right lung base. Mild degenerative changes in the spine and pelvis with lateral hip arthroplasties. Abdomen/pelvis: Gallbladder surgically absent with mild intrahepatic and extrahepatic biliary ductal dilatation which can be seen postcholecystectomy. Liver is unremarkable except for mild enlargement and trace perihepatic fluid. The spleen, pancreas, adrenals, right kidney, and proximal GI tract appear unremarkable. Simple cysts in the left kidney. Urinary bladder and reproductive organs are not well seen because of considerable streak artifact in the pelvis. There is small volume pelvic free fluid. No gross acute colonic abnormality. There is equalization in the distal ileum with mildly distended upstream small bowel loops which are fluid-filled with mucosal enhancement. IMPRESSION: 1. Nonspecific bowel findings as above could be seen in the setting of enteritis. 2. Additional incidental findings as above. - Medical Decision Making 61-year-old from detention facility with abdominal pain and history of uterine prolapse. Patient may have uterine prolapse however, it does not extend outside of the vaginal opening and did not requiring any reduction in the ED. CT abdomen pelvis does not show acute abnormalities of the uterus and reproductive organs were poorly visualized due to streaking. Labs are unremarkable Patient will be signed out to oncoming provider Dr. Wilson to follow-up on the pending results US pelvis UA (from straight cath) Critical Care Time: No ED Disposition Clinical Impression: Acute abdominal pain, Acute pelvic pain Disposition: 03 [facility]P FACILITY Condition: Stable Instructions: Abdominal Pain, Adult, Pelvic Pain, Female Referrals: MAXX PLUMMER MD [Primary Care Provider] - 3-5 Days <DOUG WILSON - Last Filed: 11/19/21 22:35> ED Review of Systems ROS: Stated complaint: ABD PAIN Other details as noted in HPI ED Course Vital Signs 11/19/21 16:34 Temperature 99.6 F Pulse Rate 89 Respiratory 16 Rate Blood Pressure 108/70 [Left] O2 Sat by Pulse 96 Oximetry ED Medical Decision Making - Lab Data Result diagrams: 11/19/21 18:29 11/19/21 18:29 - Medical Decision Making Urinalysis is unremarkable. Pelvic ultrasound is negative for acute finding. Patient remained stable in the ER with a stable vital sign. Patient will be discharged back to her detention and to follow-up with her primary care physician and pillowcase turner in the next 2 to 3 days and to return to the ER if she develop any new symptoms. Critical care attestation.: If time is entered above; I have spent that time in minutes in the direct care of this critically ill patient, excluding procedure time. ED Disposition Is pt being admited?: No
[2021-11-19 18:58] LABS: Basophils % (Auto) 0.2 % (0.0-1.8); Eosinophils # (Auto) 0.1 K/mm3 (0.0-0.4); Eosinophils % (Auto) 3.7 % (0.0-4.3); Hematocrit 37.7 % (30.3-42.9); Hemoglobin 11.9 gm/dl (10.1-14.3); Lymphocytes # (Auto) 0.7 K/mm3 (1.2-5.4); Mean Corpuscular HGB Conc 32 % (30-34); Mean Corpuscular Volume 84 fl (79-97); Monocytes # (Auto) 0.4 K/mm3 (0.0-0.8); Monocytes % (Auto) 10.6 % (0.0-7.3); Platelet Count 177 K/mm3 (140-440); Red Blood Count 4.47 M/mm3 (3.65-5.03); Red Cell Distribution Width 16.6 % (13.2-15.2)
[2021-11-19 19:16] LABS: Alanine Aminotransferase 8 units/L (7-56); Albumin 3.6 g/dL (3.9-5); Blood Urea Nitrogen 15 mg/dL (7-17); Calcium 9.3 mg/dL (8.4-10.2); Hemolysis Index 16
[2021-11-19 19:24] LABS: BUN/Creatinine Ratio 38
--- NOTE | 2021-11-19 20:15 | Cat Scan Report ---
CT ABDOMEN AND PELVIS WITH CONTRAST HISTORY: abd pain, hx of uterine prolapse. COMPARISON: CT abdomen/pelvis from 06/04/2020 TECHNIQUE: CT images of the abdomen and pelvis were obtained following administration of intravenous contrast. All CT scans at this location are performed using CT dose reduction for ALARA by means of automated exposure control. CONTRAST: 100 ml of intravenous contrast administered. FINDINGS: Lungs/bones: Minimal streaky atelectasis most notably in the right lung base. Mild degenerative redd ges in the spine and pelvis with lateral hip arthroplasties. Abdomen/pelvis: Gallbladder surgically absent with mild intrahepatic and extrahepatic biliary ductal dilatation which can be seen postcholecystectomy. Liver is unremarkable except for mild enlargement and trace perihepatic fluid. The spleen, pancreas, adrenals, right kidney, and proximal GI tract appe ar unremarkable. Simple cysts in the left kidney. Urinary bladder and reproductive organs are not well seen because of considerable streak artifact in the pelvis. There is small volume pelvic free fluid. No gross acute colonic abnormality. There is equalization in the distal ileum with mildly distended u pstream small bowel loops which are fluid-filled with mucosal enhancement. IMPRESSION: 1. Nonspecific bowel findings as above could be seen in the setting of enteritis. 2. Additional incidental findings as above. Signer Name: Benjamín Valerio MD Signed: 11/19/2021 8:11 PM Workstation Name: [id number]
[2021-11-19 21:28] LABS: Bilirubin,Urine Negative (Negative)
[2021-11-19 21:29] LABS: Blood,Urine Trace (Negative); PH,Urine 6.5 (5.0-7.0); Protein,Urine <30 mg dL mg/dL (Negative); Urobilinogen,Urine < 0.2 mg/dL (<2.0)
[2021-11-19 21:30] LABS: Color,Urine Straw (Yellow)
[2021-11-19 21:37] LABS: Bacteria,Urine 1+ /HPF (Negative); Calcium Oxalate Crystals,Urine 1+; Mucus,Urine 3+ /HPF
--- NOTE | 2021-11-19 21:43 | Ultrasound Report ---
ULTRASOUND PELVIS INDICATION / CLINICAL INFORMATION: lower abd pain. TECHNIQUE: Transabdominal. Duplex Color Doppler used: Yes. COMPARISON: CT of the abdomen pelvis from earlier in the day FINDINGS: UTERUS: - Appearance: Heterogeneous echotexture throughout - Size (cm): 6.1 x 2.6 x 3.2 - Endometrial Complex (if present): No significant abnormality.. Thickness in cm (if measured) = 0.2 - Mass or cyst: None. - Additional findings: None. RIGHT ADNEXA: Right ovary is not visualized. No adnexal mass. LEFT ADNEXA: Left ovary is nonvisualized. No adnexal mass. URINARY BLADDER: No significant abnormality. FREE FLUID: Minimum ADDITIONAL FINDINGS: None. IMPRESSION: 1. Minimum free fluid throughout the pelvis, otherwise no significant sonographic abnormality. There is nonvisualization of either ovary; however, there is no sonographic findings of an adnexal mass Signer Name: Kenneth Thurston DO Signed: 11/19/2021 9:39 PM Workstation Name: [id number]
[2021-11-19 23:39] VITALS: BP 139/72
== END 2021-11-19 23:47 ==
LOC: ED 16:28
DX: R10.2 Pelvic and perineal pain (principal); I10 Essential (primary) hypertension; F25.1 Schizoaffective disorder, depressive type; F41.9 Anxiety disorder, unspecified; Z98.890 Other specified postprocedural states; Z88.8 Allergy status to other drugs, medicaments and biological substances; Z91.018 Allergy to other foods
CPT/HCPCS: 36415; 74177; 76856; 80053; 81001; 83690; 85025; 96374; 96375; 99285; J2270; J2405; J3490; Q9967